=== PATIENT | female | born 1975 | race Caucasian/White ===

== ENCOUNTER 2018-03-07 14:36 | Inpatient (IN) ==
--- NOTE | 2018-03-07 15:20 | Emergency Department Note ---
Nausea/Vomiting/Diarrhea HPI - General Chief complaint: Nausea/Vomiting/Diarrhea Stated complaint: nausea/vomiting Time Seen by Provider: 03/07/18 14:44 Source: patient Mode of arrival: ambulatory Limitations: no limitations - History of Present Illness HPI Narrative: 43-year-old female presents from [facility] with a 6 days hx of nausea/ vomiting. She had blood work done there which showed acute renal failure. She has a hx of metastatic adenocarcinoma of the cervix and her last chemo treatment was in [facility]. She states she only had one treatment and then decided to no longer have treatment. She is not on hospice. She does not have a hx of renal failure. She has had mild elevation in her creatinine. She has had blood transfusions in the past during chemo. She has had 2 episodes of vomiting today and got Phenergan IV which has helped. She has been vomiting 2-3 times a day for about 4 days. She has been wretching and has subconjunctival hemorrhage. She states she votied blood in a small amount twice today. She also has blood in her stool x1year and noticed more in the last few days. Her only medications are zofran, compazine, and 5-HTP. She only recently started the nausea medication again due to being sick. She is having loose stools. No abdominal pain. Chills and night sweats. SOB on exertion. No headaches or dizziness. No chest pain. She is producing urine - Related Data Home Medications Medication Instructions Recorded Confirmed Ondansetron [Zofran Odt] 8 mg PO TID PRN 03/07/18 03/07/18 Prochlorperazine Maleate 10 mg PO Q6H PRN 03/07/18 03/07/18 [Compazine] Allergies Allergy/AdvReac Type Severity Reaction Status Date / Time Amoxicillin Allergy Verified 03/07/18 14:38 Penicillins Allergy Verified 03/07/18 14:38 Review of Systems All systems ED: reviewed and negative except as stated. 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 Surgical history ED: Reports: hysterectomy (And radiation therapy along with chemo) Family history: Reports: non-contributory - Social History smoking status: Never smoker Physical Exam Limitations: no limitations General appearance: alert, in no apparent distress Head: atraumatic Eye: Present: PERRL, EOMI, conjunctival injection (Subconjunctival hemorrhages) Neck: Present: normal inspection, full ROM Chest: Present: normal inspection, symmetric chest wall rise Respiratory: Present: normal lung sounds bilaterally Cardiovascular: Present: regular rate, normal heart sounds Abdominal: Present: soft, normal bowel sounds. Absent: tenderness Rectal: Present: normal inspection, normal rectal tone, heme (-) stool, hemorrhoids. Absent: black stool, bloody stool Extremities: Present: normal inspection, full ROM. Absent: pedal edema Neurological: Present: alert, oriented X3 Psychiatric: Present: normal affect, normal mood Skin: Present: warm, dry, intact Course - Reevaluation(s) Reevaluation #1: Potassium 6.7 on point of care[address] Dr[address] Carlisle was consulted and we will start the hyperkalemia protocol. No EKG changes at this time. Time: 16:10 Reevaluation #2: Bilateral hydronephrosis on ultrasound. We will get a CT without contrast Time: 16:45 Reevaluation #3: I consulted with Dr. Branch. He states at this time the Ellis catheter sounds like a good idea and he does not feel as though she has ureteral obstruction. Since her hydronephrosis has not changed in the last 6 weeks it is unlikely a obstructive process. Dr. Carlisle will follow the kidney function and she will be admitted by Dr. Louis Time: 18:20 Vital Signs Temperature 97.9 F 03/07/18 14:38 Pulse Rate 103 H 03/07/18 14:38 Respiratory Rate 16 03/07/18 14:38 Blood Pressure 183/92 03/07/18 14:38 Pulse Oximetry (%) 99 03/07/18 14:38 Temperature 97.9 F 03/07/18 18:30 Pulse Rate 113 H 03/07/18 18:30 Respiratory Rate 22 03/07/18 18:30 Blood Pressure 159/83 03/07/18 18:30 Pulse Oximetry (%) 98 03/07/18 18:30 Nausea/Vomiting/Diarrhea - Medical Records Medical records reviewed: Yes I reviewed the patient's medical records. Her most recent creatinine was 1.2 on January 09, 2018. At that time her BUN was 15. She has a history of anemia at 6.9 on 12/08/16. Most recent was 10.4 in November of this year. Blood work done today shows 7.8 hemoglobin, BUN is 125, creatinine is 16.8, potassium is 5.8. Possibly mild peaked T waves on her EKG - Lab Data Lab results reviewed: Yes I reviewed the patient's lab results. Result diagrams: 03/07/18 15:25 03/07/18 18:10 Lab Results 03/07/18 03/07/18 03/07/18 Range/Units 15:25 15:25 15:25 WBC 7.0 (4.5-11.0) K/mcL RBC 2.32 L (4.00-5.20) M/mcL Hgb 7.3 L (12.0-15.0) g/dL Hct 21.1 L (36.0-48.0) % POC Hct 20.0 L* (36.0-48.0) % MCV 90.7 (80.0-100.0) fL MCH 31.2 (26.0-34.0) pg MCHC 34.4 (31.0-36.0) g/dL RDW 12.8 (11.5-14.5) % Plt Count 129 L (140-440) K/mcL MPV 8.2 (7.4-10.4) fL Gran % 83.9 H (38.0-78.0) % Lymph % (Auto) 8.1 L (15.5-49.0) % [place] % (Auto) 7.5 (1.0-12.0) % Eos % (Auto) 0.3 (0.0-7.0) % Baso % (Auto) 0.2 (0.0-2.0) % Gran # 5.9 (1.8-8.0) K/mcL Lymph # (Auto) 0.6 L (1.5-4.8) K/mcL [place] # (Auto) 0.5 (0.1-0.9) K/mcL Eos # (Auto) 0 (0.0-0.7) K/mcL Baso # (Auto) 0 (0.0-0.3) K/mcL POC PT 17.2 H (11.9-14.5) sec POC INR 1.5 H (0.9-1.2) POC Sodium 136 (133-145) mmol/L Sodium (133-145) mmol/L POC Potassium 6.7 H* (3.3-5.1) mmol/L Potassium (3.3-5.1) mmol/L POC Chloride 110 H (96-108) mmol/L Chloride (96-108) mmol/L Carbon Dioxide (22-30) mmol/L POC Total CO2 14 L (22-30) mmol/L Anion Gap (8-16) POC BUN 134 H* (6-20) mg/dl BUN (6-20) mg/dl Creatinine (0.6-1.1) mg/dl POC Creatinine 19.7 H* (0.6-1.1) mg/dl GFR Calculation Glucose (70-105) mg/dL POC Glucose 84 (70-105) mg/dL Uric Acid (2.5-8.0) mg/dL Calcium (8.6-10.4) mg/dl POC WB Ioniz Calcium 1.01 L (1.16-1.32) mmol/L Phosphorus (2.7-4.5) mg/dL Total Bilirubin (0.0-1.0) mg/dL AST (0-37) U/l ALT (0-40) U/l Alkaline Phosphatase (39-117) U/L Total Creatine Kinase (24-170) IU/L Total Protein (5.9-8.4) gm/dL Albumin (3.2-5.2) gm/dL Globulin (2.2-3.7) gm/dL Albumin/Globulin Ratio (1.0-2.3) Urine Color Urine Appearance Urine pH (5.0-9.0) Ur Specific [place] (1.000-1.035) Urine Protein (NEG) mg/dL Urine Glucose (UA) (NEG) mg/dL Urine Ketones (NEG) mg/dL Urine Occult Blood (<0.03) mg/dL Urine Nitrate (NEG) Urine Bilirubin (NEG) mg/dL Urine Urobilinogen (NEG) mg/dL Ur Leukocyte Esterase (NEG) /uL Urine RBC (0-1) /hpf Urine WBC (0-4) /hpf Ur Squamous Epith Cells (0-4) /hpf Urine Bacteria (0) /hpf Ur Culture Indicated? Ur Random Creatinine mg/dl Ur Random Sodium mmol/L 03/07/18 03/07/18 03/07/18 Range/Units 15:25 17:17 17:17 WBC (4.5-11.0) K/mcL RBC (4.00-5.20) M/mcL Hgb (12.0-15.0) g/dL Hct (36.0-48.0) % POC Hct (36.0-48.0) % MCV (80.0-100.0) fL MCH (26.0-34.0) pg MCHC (31.0-36.0) g/dL RDW (11.5-14.5) % Plt Count (140-440) K/mcL MPV (7.4-10.4) fL Gran % (38.0-78.0) % Lymph % (Auto) (15.5-49.0) % [place] % (Auto) (1.0-12.0) % Eos % (Auto) (0.0-7.0) % Baso % (Auto) (0.0-2.0) % Gran # (1.8-8.0) K/mcL Lymph # (Auto) (1.5-4.8) K/mcL [place] # (Auto) (0.1-0.9) K/mcL Eos # (Auto) (0.0-0.7) K/mcL Baso # (Auto) (0.0-0.3) K/mcL POC PT (11.9-14.5) sec POC INR (0.9-1.2) POC Sodium (133-145) mmol/L Sodium 138 (133-145) mmol/L POC Potassium (3.3-5.1) mmol/L Potassium 7.0 H* (3.3-5.1) mmol/L POC Chloride (96-108) mmol/L Chloride 101 (96-108) mmol/L Carbon Dioxide 12 L (22-30) mmol/L POC Total CO2 (22-30) mmol/L Anion Gap 25.0 H (8-16) POC BUN (6-20) mg/dl BUN 133 H* (6-20) mg/dl Creatinine 17.6 H* (0.6-1.1) mg/dl POC Creatinine (0.6-1.1) mg/dl GFR Calculation 2 Glucose 88 (70-105) mg/dL POC Glucose (70-105) mg/dL Uric Acid (2.5-8.0) mg/dL Calcium 7.8 L (8.6-10.4) mg/dl POC WB Ioniz Calcium (1.16-1.32) mmol/L Phosphorus (2.7-4.5) mg/dL Total Bilirubin 0.3 (0.0-1.0) mg/dL AST 7 (0-37) U/l ALT 14 (0-40) U/l Alkaline Phosphatase 52 (39-117) U/L Total Creatine Kinase (24-170) IU/L Total Protein 6.8 (5.9-8.4) gm/dL Albumin 4.2 (3.2-5.2) gm/dL Globulin 2.6 (2.2-3.7) gm/dL Albumin/Globulin Ratio 1.6 (1.0-2.3) Urine Color Urine Appearance Urine pH (5.0-9.0) Ur Specific [place] (1.000-1.035) Urine Protein (NEG) mg/dL Urine Glucose (UA) (NEG) mg/dL Urine Ketones (NEG) mg/dL Urine Occult Blood (<0.03) mg/dL Urine Nitrate (NEG) Urine Bilirubin (NEG) mg/dL Urine Urobilinogen (NEG) mg/dL Ur Leukocyte Esterase (NEG) /uL Urine RBC (0-1) /hpf Urine WBC (0-4) /hpf Ur Squamous Epith Cells (0-4) /hpf Urine Bacteria (0) /hpf Ur Culture Indicated? Ur Random Creatinine 59.2 mg/dl Ur Random Sodium 62 mmol/L 03/07/18 03/07/18 Range/Units 17:17 18:10 WBC (4.5-11.0) K/mcL RBC (4.00-5.20) M/mcL Hgb (12.0-15.0) g/dL Hct (36.0-48.0) % POC Hct (36.0-48.0) % MCV (80.0-100.0) fL MCH (26.0-34.0) pg MCHC (31.0-36.0) g/dL RDW (11.5-14.5) % Plt Count (140-440) K/mcL MPV (7.4-10.4) fL Gran % (38.0-78.0) % Lymph % (Auto) (15.5-49.0) % [place] % (Auto) (1.0-12.0) % Eos % (Auto) (0.0-7.0) % Baso % (Auto) (0.0-2.0) % Gran # (1.8-8.0) K/mcL Lymph # (Auto) (1.5-4.8) K/mcL [place] # (Auto) (0.1-0.9) K/mcL Eos # (Auto) (0.0-0.7) K/mcL Baso # (Auto) (0.0-0.3) K/mcL POC PT (11.9-14.5) sec POC INR (0.9-1.2) POC Sodium (133-145) mmol/L Sodium 140 (133-145) mmol/L POC Potassium (3.3-5.1) mmol/L Potassium 4.4 (3.3-5.1) mmol/L POC Chloride (96-108) mmol/L Chloride 103 (96-108) mmol/L Carbon Dioxide 12 L (22-30) mmol/L POC Total CO2 (22-30) mmol/L Anion Gap 25.0 H (8-16) POC BUN (6-20) mg/dl BUN 134 H* (6-20) mg/dl Creatinine 17.9 H* (0.6-1.1) mg/dl POC Creatinine (0.6-1.1) mg/dl GFR Calculation 2 Glucose 112 H (70-105) mg/dL POC Glucose (70-105) mg/dL Uric Acid 8.1 H (2.5-8.0) mg/dL Calcium (8.6-10.4) mg/dl POC WB Ioniz Calcium (1.16-1.32) mmol/L Phosphorus 9.3 H* (2.7-4.5) mg/dL Total Bilirubin (0.0-1.0) mg/dL AST (0-37) U/l ALT (0-40) U/l Alkaline Phosphatase (39-117) U/L Total Creatine Kinase 71 (24-170) IU/L Total Protein (5.9-8.4) gm/dL Albumin (3.2-5.2) gm/dL Globulin (2.2-3.7) gm/dL Albumin/Globulin Ratio (1.0-2.3) Urine Color Straw Urine Appearance Clear Urine pH 6.0 (5.0-9.0) Ur Specific [place] 1.010 (1.000-1.035) Urine Protein 30 A (NEG) mg/dL Urine Glucose (UA) 50 A (NEG) mg/dL Urine Ketones Neg (NEG) mg/dL Urine Occult Blood 0.03 A (<0.03) mg/dL Urine Nitrate Neg (NEG) Urine Bilirubin Neg (NEG) mg/dL Urine Urobilinogen Neg (NEG) mg/dL Ur Leukocyte Esterase 250 A (NEG) /uL Urine RBC 1 (0-1) /hpf Urine WBC 16 H (0-4) /hpf Ur Squamous Epith Cells 1 (0-4) /hpf Urine Bacteria 0 (0) /hpf Ur Culture Indicated? Yes Ur Random Creatinine mg/dl Ur Random Sodium mmol/L - Radiology Data Radiology results reviewed: Yes I reviewed the patient's radiology results. 1. No definite cause identified for renal failure. There is mild bilateral hydronephrosis/hydroureter which is unchanged from the study six weeks prior prior. Urinary bladder contains moderate urine. Suggest pre and post void ultrasound to ensure the absence of chronic bladder outlet obstruction due to periurethral fibrosis etc. Suspect renal failure is due to renal parenchymal disease 2. Three target lesions in the pelvis have increased size slightly since the comparison whole-body PET CT six weeks prior. This suggests progression in metastatic disease 3. Moderate anterior abdominal wall hernia at midline containing a few loops of nonincarcerated small bowel - stable 4. Severe interstitial disease developing in the lung bases with scattered groundglass opacities since the CT study just six weeks prior. This could indicate infection, inflammation, drug reaction etc. Consider: Chest CT without contrast Mild CHF - EKG Data EKG attestation: Yes I reviewed and interpreted this EKG. EKG results narrative: Negative for acute abnormality or peaked T waves Disposition Pt seen by HARDWARE TRAINER/PA only: Yes Clinical Impression: Acute renal failure, Hyperkalemia Disposition: Xfer As Inpt ([facility]) Condition: Fair
[2018-03-07] MEDS ORDERED: 0.9 % SODIUM CHLORIDE 1,000 ML IV SCH (15:30)
[2018-03-07] MEDS ORDERED: INSULIN REGULAR, HUMAN 1 UNIT/0.01 ML UNIT IV ONE (16:01)
[2018-03-07] MEDS ORDERED: DEXTROSE 50% 50 ML SYRINGE IV ONE (16:01)
[2018-03-07] MEDS ORDERED: SODIUM POLYSTYRENE SULFONATE 15 GM/60 ML SUSPENSION PO ONE (16:01)
[2018-03-07] MEDS ORDERED: ALBUTEROL SULFATE 5 MG/ML NEB SOLUTION BOTTLE NEB ONE (16:01)
[2018-03-07] MEDS ORDERED: FUROSEMIDE 40 MG/4 ML VIAL IV ONE (16:01)
[2018-03-07] MEDS ORDERED: CALCIUM CHLORIDE 1,000 MG/10 ML SYRINGE IV ONE (16:04)
[2018-03-07 16:06] LABS: Basophils # (Auto) 0 K/mcL (0.0-0.3); Basophils % (Auto) 0.2 % (0.0-2.0); Eosinophils # (Auto) 0 K/mcL (0.0-0.7); Eosinophils % (Auto) 0.3 % (0.0-7.0); Granulocytes % (Auto) 83.9 % (38.0-78.0); Lymphocytes # (Auto) 0.6 K/mcL (1.5-4.8); Lymphocytes % (Auto) 8.1 % (15.5-49.0); Mean Cell Volume 90.7 fL (80.0-100.0); Mean Corpuscular HGB Conc 34.4 g/dL (31.0-36.0); Mean Corpuscular Hemoglobin 31.2 pg (26.0-34.0); Monocytes # (Auto) 0.5 K/mcL (0.1-0.9); Monocytes % (Auto) 7.5 % (1.0-12.0); Platelet Count 129 K/mcL (140-440); RBC 2.32 M/mcL (4.00-5.20); Red Cell Distribution Width 12.8 % (11.5-14.5)
--- NOTE | 2018-03-07 16:31 | XRay Report ---
CLINICAL INFORMATION: Shortness of breath COMPARISON: None. FINDINGS: The heart is mildly enlarged. Right subclavian Port-A-Cath tip overlies the SVC right atrial junction in satisfactory position.. Mediastinum is unremarkable. Pulmonary vessels are mildly distended and there is mild residual edema or throughout both lungs. No infiltrates or effusions. Bones and soft tissues normal IMPRESSION: Mild CHF. Interpreted and Authenticated by: Mark Patricia 03/07/18
[2018-03-07] MEDS ORDERED: SODIUM BICARBONATE VIAL 150 MEQ in DEXTROSE 5% IN WATER 850 ML IV SCH (16:45)
[2018-03-07 16:47] LABS: ALT/SGPT 14 U/l (0-40); Albumin 4.2 gm/dL (3.2-5.2); Albumin/Globulin Ratio 1.6 (1.0-2.3); Alkaline Phosphatase 52 U/L (39-117); Blood Urea Nitrogen 133 mg/dl (6-20)
--- NOTE | 2018-03-07 16:57 | Nephrology Consult Note ---
History of Present Illness - Reason for Consult Patient information: Note initiated : 03/07/18 at 4:50 pm Service Date, if different from initiated Date: [] Patient: Leonor Thompson 43 y/o F admitted on for nausea/vomiting. Chief Complaint: [] Consult date: 03/07/18 acute renal failure, hyperkalemia, metabolic acidosis Requesting physician: Bonnie Nolasco - Chief Complaint nausea, vomiting - History of Present Illness Ms Thompson is 43 y/o white female with h/o metastatic cervical cancer who was sent to [facility] ER because of abnormal renal function She presented to express care at [facility] today with c/o nausea, vomiting and diarrhea She states she has not been feeling well for the last couple of weeks, c/o nausea, poor appetite, however since last Sunday she started having refractory nausea, vomiting, unable to tolerate much po intake, drinking very little fluids. She also has been having loose stools 1-2 times every day She c/o feeling weak no SOB, CP has subconjunctival hemorrhage from retching no fever, chills admits to occ use of advil no urinary symptoms, states good flow, urine output did not go down has been taking zofran and compazine for nausea Review of Systems All systems PM: reviewed and no additional remarkable complaints except as stated (as in HPI) Past History Past medical history: H/O Metastatic cervical cancer s/p radiation and chemotherapy with recurrence of disease, resumed treatment in nov this year but decided not to pursue treatment, states not on hospice, unclear life expectancy h/o lower GI bleed, has had colonoscopy Past surgical history: h/o hysterectomy for cervical cancer as above h/o port placement h/o colonoscopy Past family history: not pertinent Past social history: no current addictions 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 [employer] Medications and Allergies Allergies Allergy/AdvReac Type Severity Reaction Status Date / Time Amoxicillin Allergy Verified 03/07/18 14:38 Penicillins Allergy Verified 03/07/18 14:38 Exam - Vital Signs Vital signs: Temp Pulse Resp BP Pulse Ox 97.9 F 73 19 151/122 97 03/07/18 14:38 03/07/18 16:00 03/07/18 16:00 03/07/18 15:21 03/07/18 16:00 - General Appearance General appearance: appears started age, obese EENT: mucous membranes moist (HAS subconjunctival hemorrhage b/l) Neck: no JVD Respiratory: clear Cardiology: no rub, no edema, regular rate, regular rhythm Gastrointestinal: no tenderness, no guarding Integumentary: no rash, warm and dry Neurologic: no asterixis, alert and oriented x3 Musculoskeletal: no erythema, no cyanosis Psychiatric: mood/affect appropriate Results - Lab Results 03/07/18 15:25 03/07/18 15:25 Most recent lab results Calcium 7.8 mg/dl (8.6-10.4) L 03/07/18 15:25 Assessment and Plan (1) Acute renal failure serum creatinine is 17, bun is 133 s.creat was 0.8 in december 2017 no UA does have hydronephrosis on renal US She has severe hyperkalemia and metabolic acidosis related to her renal failure phos not checked anemia etiology multifactorial findings discussed with the patient requested ER to initiate hyperkalemia protocol will also start on bicarb gtt at 100cc/hour obtain CT scan stat and urology consult for bilateral hydronephrosis recheck labs by 6pm to ensure hyperkalemia is improving will follow closely for needs for dialysis, discussed with the patient, she is not opposed to dialysis at this time dose meds to egfr avoid nephrotoxic medications will follow along Thank you for giving me an opportunity to participate in Ms Thompson's medical care , appreciate it Status: Acute (2) Hyperkalemia Status: Acute (3) Metabolic acidosis Status: Acute (4) Anemia Status: Acute
[2018-03-07 17:58] LABS: Appearance,Urine CLEAR; Bacteria,Urine 0 /hpf (0); Bilirubin,Urine NEG (NEG); Color,Urine STRAW; Glucose,Urine (UA) 50 mg/dL (NEG); Leukocyte Esterase,Urine 250 /uL (NEG); Protein,Urine 30 mg/dL (NEG); Urine Blood 0.03 mg/dL (<0.03); Urine RBC 1 /hpf (0-1); Urine Squamous Epithelial Cell 1 /hpf (0-4); Urine WBC 16 /hpf (0-4); Urobilinogen,Urine NEG (NEG)
--- NOTE | 2018-03-07 18:06 | Cat Scan Report ---
CLINICAL INFORMATION: History of metastatic cervical carcinoma. Renal failure COMPARISON: Whole-body CT/PET from six weeks prior - 01/18/2018. TECHNIQUE: 0.625 mm helical slices were obtained from the mid heart through the subtrochanteric regions. Following reconstruction, 2.5 mm sagittal, coronal and axial reformatted images were processed and reviewed at bone and soft tissue windows.The exam was performed using radiation dose optimization techniques including, but not limited to, automated exposure control, adjustment of the mA and/or kV according to patient size and use of iterative reconstruction technique. FINDINGS: Lung bases show marked interstitial disease with thickening of intralobular and interlobular septa scattered groundglass densities in the secondary lobules which is new from the previous study. There are no effusions. The visualized heart is borderline enlarged Images should the abdomen show the noncontrasted gallbladder and bile ducts, liver, both adrenal glands, spleen, pancreas and aorta to be normal. Both kidneys are normal in size configuration without focal lesion. There is mild bilateral hydronephrosis/hydroureter. This is unchanged. Urinary bladder is unremarkable. There is mild fibrosis in the periurethral soft tissues and former region of the uterus following hysterectomy this is unchanged. . The three target lesions, described on CT PET six weeks prior which showed Take shows slight increase in size: The left true pelvis lesion is increased from 11 to 14 mm (image [id number], the right true pelvis lesion is increased from 17 to 18 mm. In the anterior abdominal wall near midline lesion has increased from 24 26-mm. These are known to represent metastatic deposits. Moderate sized midline hernia containing small bowel loops which do not appear to penetrated seen as before. No free air or free fluid. Bone windows show no osseous abnormality IMPRESSION: 1. No definite cause identified for renal failure. There is mild bilateral hydronephrosis/hydroureter which is unchanged from the study six weeks prior prior. Urinary bladder contains moderate urine. Suggest pre and post void ultrasound to ensure the absence of chronic bladder outlet obstruction due to periurethral fibrosis etc. Suspect renal failure is due to renal parenchymal disease 2. Three target lesions in the pelvis have increased size slightly since the comparison whole-body PET CT six weeks prior. This suggests progression in metastatic disease 3. Moderate anterior abdominal wall hernia at midline containing a few loops of nonincarcerated small bowel - stable 4. Severe interstitial disease developing in the lung bases with scattered groundglass opacities since the CT study just six weeks prior. This could indicate infection, inflammation, drug reaction etc. Consider: Chest CT without contrast Interpreted and Authenticated by: Mark Patricia 03/07/18
[2018-03-07] MEDS ORDERED: ACETAMINOPHEN 325 MG TABLET PO PRN (18:43)
[2018-03-07] MEDS ORDERED: ONDANSETRON 4 MG/2 ML VIAL IV PRN (18:43)
[2018-03-07] MEDS ORDERED: PROMETHAZINE 25 MG/ML VIAL IV PRN (18:43)
[2018-03-07 19:08] LABS: Blood Urea Nitrogen 134 mg/dl (6-20); Creatine Kinase 71 IU/L (24-170); Uric Acid 8.1 mg/dL (2.5-8.0)
--- NOTE | 2018-03-07 19:13 | Ultrasound Report ---
CLINICAL INFORMATION: Acute renal failure COMPARISON: CT from 03/07/2018 FINDINGS: Both kidneys are normal in size, position and configuration: The right is 11 x 5 cm and the left is 12.7 x 6 cm. Moderate bilateral hydronephrosis noted. Renal parenchymal echotexture is elevated suggesting medical renal disease. There are no focal renal lesions Urinary bladder volume is 84 cc patient unable to void. IMPRESSION: 1. Mild elevation of renal parenchymal echotexture suggesting medical renal disease. 2. Moderate bilateral hydronephrosis. Patient also unable to void. The possibility of chronic bladder outlet obstruction should be entertained. Interpreted and Authenticated by: Mark Patricia 03/07/18
--- NOTE | 2018-03-07 19:41 | Internal Med History&Physical ---
Medical - H&P: HPI Patient information: Note initiated : 03/07/18 at 7:35 pm Service Date, if different from initiated Date: [] Patient: Leonor Thompson a 43 y/o F admitted on 03/07/18 for nausea/vomiting. Chief Complaint: [] Chief complaint: nausea vomiting History of present illness: Ms. Thompson is a 43 year old F with a history of stage IV cervical cancer with ongoing chemotherapy last session 2017. Patient has been doing well until roughly 8-10 days prior to presentation when she started experiencing progressive nausea followed by vomiting,diarrhea , loss of appetite and inability to tolerate anything by mouth. Patient's condition has continued to deteriorate to the point she has not be able to function due to fatigue. She was evaluated at [facility] today and was directed to the ER with abnormal labs. Initial workup was significant for potassium at 7 along with metabolic acidosis and creatinine of over 19. Abdominal imaging including ultrasound and CT scan showed mild hydronephrosis without any evidence of obstruction. Nephrology was consulted. Patient was started on hyperkalemia protocol along with bicarbonate drip per nephrology. hospitalist service was subsequently consulted for admission in light of acute renal failure, hyperkalemia. At the time of evaluation patient is accompanied with her Darshan. She was able to provide history as above She also complains of blood in stool but denies recent URI symptoms, fever, chills, SOB . She denies NSAID intake. Denies headache photophobia but endorses to read IV from recurrent vomiting and retching review of systems 10 point review of system was performed and is negative except for as discussed above Medical - H&P: PMH Medical history: metastatic cervical cancer Surgical history: hysterectomy Colonoscopy Pertinent family history: breast cancer mother Social history: to darshan denies smoking or alcoholism Functional capacity: independent ambulation Medical - H&P: Meds Home Medications Medication Instructions Recorded Confirmed Type Ondansetron [Zofran Odt] 8 mg PO TID PRN 03/07/18 03/07/18 History Prochlorperazine Maleate 10 mg PO Q6H PRN 03/07/18 03/07/18 History [Compazine] Allergies Allergy/AdvReac Type Severity Reaction Status Date / Time Amoxicillin Allergy Verified 03/07/18 14:38 Penicillins Allergy Verified 03/07/18 14:38 Medical - H&P: Exam - Constitutional Vitals: Temp Pulse Resp BP Pulse Ox 99.2 F H 100 H 28 H 174/74 98 03/07/18 18:43 03/07/18 18:43 03/07/18 18:43 03/07/18 18:43 03/07/18 18:43 General appearance: obese Exam: anxious and fatigued Abdomen symmetrical subconjunctival hemorrhage oral cavity dry No ear discharge neck no lymphadenopathy Telemetry regular rhythm Nonlabored breathing Abdomen soft Lower extremity no lymphedema Skin no suspicious lesion Neuro moving all 4 extremities Medical - H&P: Reslt - Labs CBC & Chem 7: 03/07/18 15:25 03/07/18 18:10 Labs: Short CBC 03/07/18 Range/Units 15:25 WBC 7.0 (4.5-11.0) K/mcL Hgb 7.3 L (12.0-15.0) g/dL Hct 21.1 L (36.0-48.0) % Plt Count 129 L (140-440) K/mcL BMP 03/07/18 03/07/18 15:25 18:10 Sodium 138 140 Potassium 7.0 H* 4.4 Chloride 101 103 Carbon Dioxide 12 L 12 L BUN 133 H* 134 H* Creatinine 17.6 H* 17.9 H* Glucose 88 112 H Calcium 7.8 L Cardiac Enzymes 03/07/18 Range/Units 18:10 Total Creatine Kinase 71 (24-170) IU/L Liver Function 03/07/18 Range/Units 15:25 Total Bilirubin 0.3 (0.0-1.0) mg/dL AST 7 (0-37) U/l ALT 14 (0-40) U/l Alkaline Phosphatase 52 (39-117) U/L Albumin 4.2 (3.2-5.2) gm/dL Urine 03/07/18 Range/Units 17:17 Urine Color Straw Urine Appearance Clear Urine pH 6.0 (5.0-9.0) Ur Specific [place] 1.010 (1.000-1.035) Urine Protein 30 A (NEG) mg/dL Urine Glucose (UA) 50 A (NEG) mg/dL Medical - H&P: A/P (1) Acute renal failure Current visit: Yes Status: Acute * acute renal failure- creatinine 19.nephrology consulted * life threatening Hyperkalemia-on treatment protocol. Potassium at 7. Managed per nephrology * severe nausea vomiting-continue as needed Zofran. Likely secondary to uremia * Metabolic acidosis/uremia-managed per nephrology. On bicarbonate drip * intermittent rectal bleed-continue monitoring. Plan * consult nephrology * every 8 hours BMP check * Admitted inpatient telemetry
[2018-03-07 19:43] LABS: Ionized Calcium 1.02 mmol/L (1.16-1.32)
[2018-03-07] MEDS: DOCUSATE SODIUM 100 MG CAPSULE PO SCH (20:59)
[2018-03-07] MEDS ORDERED: SENNOSIDES/DOCUSATE SODIUM 1 TAB TABLET PO SCH (21:00)
--- NOTE | 2018-03-07 21:10 | Emergency Department Note ---
ED Note Addendum Note Addendum: case follow with Bonnie and agree with lab an dx and consult to Sarina Pryor, and Dr Hammonds
[2018-03-07] MEDS: 0.9 % SODIUM CHLORIDE 1,000 ML IV SCH (23:33)
[2018-03-07] MEDS: 0.9 % SODIUM CHLORIDE 10 ML SYRINGE IV SCH (23:33)
--- NOTE | 2018-03-08 00:20 | Consultation ---
DATE OF CONSULTATION: 03/07/2018 DATE: 03/07/2018 HISTORY OF PRESENT ILLNESS: The patient is a 43-year-old lady with stage IV cervical cancer who has had radiation and finished chemotherapy in November of this year. Approximately 8 to 10 days started to have nausea, vomiting, diarrhea, loss of appetite. She was seen in my Nephrology and was noted to have a high potassium and also a creatinine approximately 19. She was admitted to the hospital and they have attempted to pass a Ellis catheter and were unable, and I was asked to evaluate. Patient also had an ultrasound which did show hydronephrosis and a CT scan did not show any obstruction. This may be related to radiation-caused scarring of the ureters. She presents now for evaluation. PAST MEDICAL HISTORY: Metastatic cervical cancer. PAST SURGICAL HISTORY: Hysterectomy, colonoscopy. FAMILY HISTORY: Breast cancer. SOCIAL HISTORY: Denies any smoking or drinking. CURRENT MEDICATIONS: Per hospital notes. ALLERGIES: AMOXICILLIN, PENICILLIN. REVIEW OF SYSTEMS: A complete 12-point review of systems negative, was urinating before now, denies any urinary leakage. PHYSICAL EXAMINATION: GENERAL: This is a pleasant lady in slight distress. VITAL SIGNS: As listed per nurse's notes. HEENT: Atraumatic, normocephalic. Extraocular movements are intact. Pupils equal, reactive to light and accommodation. HEART: Regular rate and rhythm. LUNGS: Clear to auscultation. ABDOMEN: Soft, nontender. GENITOURINARY: Normal female anatomy. Urethra is in its normal position. Status post hysterectomy. Vagina is normal. No rectocele is noted. EXTREMITIES: Without clubbing, cyanosis, edema. NEUROLOGIC: 2-12 grossly intact. IMPRESSION: A patient who appears to have obstructive uropathy. I was able to place a Ellis catheter after placing the patient in [facility], and a 16-Mauritian catheter went in easily. Postvoid residual was approximately 100 mL. I am concerned about the bilateral hydronephrosis. This may be contributing to her renal decline. I have talked to her and her about this and would take her tomorrow for stent placement. I have gone over the complications including bleeding, infection, not being able to get stents, need for percutaneous tubes, and she understands. We will plan to follow up with her at the time of surgery. JEANNINE:suzanne Job ID: [id number] Doc ID: [id number] Eric Branch MD
[2018-03-08 06:50] LABS: Mean Cell Volume 91.3 fL (80.0-100.0); Mean Corpuscular HGB Conc 35.1 g/dL (31.0-36.0); Platelet Count 106 K/mcL (140-440); RBC 1.95 M/mcL (4.00-5.20)
[2018-03-08] MEDS ORDERED: SUCCINYLCHOLINE 20 MG/ML ML IV ONE (07:14)
[2018-03-08] MEDS ORDERED: fentaNYL 100 MCG/2 ML VIAL IV ONE (07:14)
[2018-03-08] MEDS ORDERED: GLYCOPYRROLATE 0.2 MG/ML VIAL IV ONE (07:14)
[2018-03-08] MEDS ORDERED: KETAMINE 10 MG/ML ML ONE (07:14)
[2018-03-08] MEDS ORDERED: MIDAZOLAM 2 MG/2 ML VIAL ONE (07:14)
[2018-03-08] MEDS ORDERED: PROPOFOL 200 MG/20 ML VIAL IV ONE (07:14)
[2018-03-08] MEDS ORDERED: LIDOCAINE HCL/PF 100 MG/5 ML SYRINGE IV ONE (07:14)
[2018-03-08] MEDS ORDERED: ONDANSETRON 4 MG/2 ML VIAL ONE (07:14)
[2018-03-08] MEDS ORDERED: 0.9 % SODIUM CHLORIDE 250 ML IV SCH ×2 (07:30→09:17)
[2018-03-08 07:33] LABS: ALT/SGPT 12 U/l (0-40); Albumin 3.8 gm/dL (3.2-5.2); Albumin/Globulin Ratio 1.7 (1.0-2.3); Alkaline Phosphatase 43 U/L (39-117); Bilirubin,Direct < 0.2 mg/dL (0.0-0.3); Gamma Glutamyl Transpeptidase 15 U/L (5-36); Uric Acid 8.5 mg/dL (2.5-8.0)
[2018-03-08 07:34] LABS: Blood Urea Nitrogen 123 mg/dl (6-20)
[2018-03-08] MEDS ORDERED: METOPROLOL TARTRATE 5 MG/5 ML VIAL IV PRN (07:36)
[2018-03-08] MEDS ORDERED: IPRATROPIUM/ALBUTEROL 3 ML AMPUL.NEB NEB PRN (07:36)
[2018-03-08] MEDS ORDERED: PROMETHAZINE 25 MG/ML VIAL IV PRN ×2 (07:36→09:17)
[2018-03-08] MEDS ORDERED: HYDROmorphone 2 MG/ML VIAL IV PRN (07:36)
[2018-03-08] MEDS ORDERED: fentaNYL 100 MCG/2 ML VIAL IV PRN (07:36)
[2018-03-08] MEDS ORDERED: LACTATED RINGERS 1,000 ML IV SCH (07:45)
--- NOTE | 2018-03-08 07:46 | Brief Operative Note ---
Date of procedure: 03/08/18 Pre-op diagnosis: christopher hydronephrosis Post-op diagnosis: same Procedure: christopher stents Grafts/Implants: Yes (stents) Anesthesia: GLMA Findings: see note Complications: none Surgeon: Eric Branch Specimens Removed/Pathology: none sent Condition: stable Disposition: PACU
[2018-03-08] MEDS ORDERED: SEVELAMER 800 MG TABLET PO SCH (08:00)
[2018-03-08] MEDS ORDERED: CARVEDILOL 3.125 MG TABLET PO SCH (08:00)
[2018-03-08] MEDS ORDERED: IOPAMIDOL 50 ML BOTTLE IJ ONE (08:03)
[2018-03-08 08:07] LABS: Lymphocytes % 6 % (15-49); Monocytes % (Manual) 3 % (1-12); Platelet Estimate DECREASED (NORMAL); RBC Morphology NORMAL (NORMAL); Segmented Neutrophils % 91 % (38-78)
[2018-03-08] MEDS ORDERED: MULTIVIT,THER IRON,CA,FA & MIN 1 TABLET PO SCH (09:00)
[2018-03-08] MEDS ORDERED: ONDANSETRON 4 MG/2 ML VIAL IV PRN (09:17)
[2018-03-08] MEDS ORDERED: 0.9 % SODIUM CHLORIDE 1,000 ML IV SCH (09:17)
[2018-03-08] MEDS ORDERED: ACETAMINOPHEN 325 MG TABLET PO PRN (09:17)
[2018-03-08] MEDS ORDERED: HYDROXYTRYPTOPHAN 100 MG PO PRN (09:17)
[2018-03-08] MEDS ORDERED: PROCHLORPERAZINE MALEATE 10 MG TABLET PO PRN (09:17)
[2018-03-08] MEDS ORDERED: ONDANSETRON ODT 4 MG TABLET SL PRN (09:31)
--- NOTE | 2018-03-08 09:35 | Operative Note ---
DATE OF OPERATION: 03/08/2018 PREOPERATIVE DIAGNOSIS: Bilateral hydronephrosis, renal failure. POSTOPERATIVE DIAGNOSIS: Bilateral hydronephrosis, renal failure. PROCEDURE: Cystoscopy, retrograde pyelogram, ureteral stent placement. SURGEON: Eric Branch MD INDICATION: The patient is a 43-year-old lady who has had cervical cancer and has had radiation and chemotherapy. She has had an increase seen in her BUN and creatinine, also potassium. This been normalized, but her BUN and creatinine are still high. She presents now for stents. PROCEDURE: The patient was identified and consent was signed. She was given general anesthesia, placed in lithotomy position, prepped and draped in a standard fashion. A retrograde pyelogram was obtained which showed narrowing at the ureterovesical junction. This was extrinsic. A wire was then passed up into the kidney and a 6 x 24 stent was placed using the Seldinger technique. This showed a good curl in the kidney and the bladder. We then repeated this on the left side and again there was a narrowing at the ureters, at the UVJ. A wire was placed and a 6 x 24 stent was placed without difficulty. No string was left attached and this showed both good curls in the kidney and the bladder. A Ellis catheter was placed and she was awoken and taken to recovery room in stable condition. She tolerated the procedure well. NancyZ:amurisio Job ID: [id number] Doc ID: [id number] Eric Branch MD
[2018-03-08] MEDS ORDERED: METOPROLOL TARTRATE 5 MG/5 ML VIAL IV ONE (09:48)
--- NOTE | 2018-03-08 09:50 | Internal Med Progress Note ---
Medical - PN: Subj Patient information: Note initiated : 03/08/18 at 9:49 am Service Date, if different from initiated Date: [] Patient: Leonor Thompson a 43 y/o F admitted on 03/07/18 for nausea/vomiting. Chief Complaint: [] Interval history: Ms. Thompson is a 43 year old F with a history of stage IV cervical cancer with ongoing chemotherapy last session 2017. Patient has been doing well until roughly 8-10 days prior to presentation when she started experiencing progressive nausea followed by vomiting,diarrhea , loss of appetite and inability to tolerate anything by mouth. Patient's condition has continued to deteriorate to the point she has not be able to function due to fatigue. She was evaluated at [facility] today and was directed to the ER with abnormal labs. Initial workup was significant for potassium at 7 along with metabolic acidosis and creatinine of over 19. Abdominal imaging including ultrasound and CT scan showed mild hydronephrosis without any evidence of obstruction. Nephrology was consulted. Patient was started on hyperkalemia protocol along with bicarbonate drip per nephrology. hospitalist service was subsequently consulted for admission in light of acute renal failure, hyperkalemia. At the time of evaluation patient is accompanied with her Darshan. She was able to provide history as above She also complains of blood in stool but denies recent URI symptoms, fever, chills, SOB . She denies NSAID intake. Denies headache photophobia but endorses to read IV from recurrent vomiting and retching 03/08- patient underwent renal stenting by urology for obstructive uropathy. hemoglobin of 6.3. Transfuse 2 units PRBC.potassium down from 74.9. Creatinine down from 19.7-17.1. BUN at 123 from 134. phosphorus 10.6. Nephrology managing renal failure/hyperkalemia and acidosis. No overnight events or concerns per staff. No telemetry events. Appears drowsy, Foleys draining >600 cc/Hr urine outputs since procedure - Constitutional Vitals: Vital Signs Temp Pulse Resp BP Pulse Ox 98.2 F 100 H 22 173/91 94 03/08/18 08:47 03/08/18 08:47 03/08/18 08:47 03/08/18 08:47 03/08/18 08:47 Period Temp Pulse Resp BP Sys/Harris Pulse Ox Last 24 Hr 97.9 F-99.2 F 72-118 11-29 130-184/68-122 93-100 Intake and Output 03/07/18 03/08/18 03/08/18 21:59 05:59 13:59 Intake Total 360 / 360 600 / 600 Output Total 1050 / 1050 540 / 540 440 / 440 Balance -1050 / -1050 -180 / -180 160 / 160 Weight 209 lb 11.2 oz Intake & Output: Intake & Output 03/07/18 03/08/18 03/08/18 21:59 05:59 13:59 Intake Total 360 / 360 600 / 600 Output Total 1050 / 1050 540 / 540 440 / 440 Balance -1050 / -1050 -180 / -180 160 / 160 Weight 209 lb 11.2 oz Intake: IV 600 / 600 Lactated Ringers 1,000 ml @ 20 600 / 600 mls/hr IV .Q24H [facility] Rx#: [id number] Oral 360 / 360 Output: Urine Catheter Amount 440 / 440 440 / 440 Void Amount 450 / 450 Urine/Stool Mix 600 / 600 Stool 100 / 100 Other: Stool Size Moderate Stool Color Brown Stool Consistency Liquid Liquid General appearance: no acute distress Exam: alert oriented nonlabored breathing Subconjunctival hemorrhage abdomen soft No lymphedema Polyuria/foleys Medical - PN: Obj Da - Labs CBC & Chem 7: 03/08/18 03:49 03/08/18 03:49 Labs: Abnormal Lab Results 03/08/18 03/08/18 03/07/18 03:49 03:49 18:10 RBC 1.95 L Hgb 6.3 L* Hct 17.8 L* POC Hct Plt Count 106 L Gran % Lymph % (Auto) Lymph # (Auto) Seg Neutrophils % 91 H Lymphocytes % 6 L POC PT POC INR POC Potassium Potassium POC Chloride Carbon Dioxide 17 L 12 L POC Total CO2 Anion Gap 23.0 H 25.0 H POC BUN BUN 123 H* 134 H* Creatinine 17.1 H* 17.9 H* POC Creatinine Glucose 112 H Uric Acid 8.5 H 8.1 H Calcium 8.1 L POC WB Ioniz Calcium Ionized Calcium Lucina 1.02 L Phosphorus 10.6 H* 9.3 H* Urine Protein Urine Glucose (UA) Urine Occult Blood Ur Leukocyte Esterase Urine WBC 03/07/18 03/07/18 03/07/18 17:17 15:25 15:25 RBC Hgb Hct POC Hct Plt Count Gran % Lymph % (Auto) Lymph # (Auto) Seg Neutrophils % Lymphocytes % POC PT 17.2 H POC INR 1.5 H POC Potassium Potassium 7.0 H* POC Chloride Carbon Dioxide 12 L POC Total CO2 Anion Gap 25.0 H POC BUN BUN 133 H* Creatinine 17.6 H* POC Creatinine Glucose Uric Acid Calcium 7.8 L POC WB Ioniz Calcium Ionized Calcium Lucina Phosphorus Urine Protein 30 A Urine Glucose (UA) 50 A Urine Occult Blood 0.03 A Ur Leukocyte Esterase 250 A Urine WBC 16 H 03/07/18 03/07/18 15:25 15:25 RBC 2.32 L Hgb 7.3 L Hct 21.1 L POC Hct 20.0 L* Plt Count 129 L Gran % 83.9 H Lymph % (Auto) 8.1 L Lymph # (Auto) 0.6 L Seg Neutrophils % Lymphocytes % POC PT POC INR POC Potassium 6.7 H* Potassium POC Chloride 110 H Carbon Dioxide POC Total CO2 14 L Anion Gap POC BUN 134 H* BUN Creatinine POC Creatinine 19.7 H* Glucose Uric Acid Calcium POC WB Ioniz Calcium 1.01 L Ionized Calcium Lucina Phosphorus Urine Protein Urine Glucose (UA) Urine Occult Blood Ur Leukocyte Esterase Urine WBC Meds: Medications Acetaminophen (Tylenol) 650 mg PO Q4-6HP PRN PRN Reason: PAIN/FEVER > 101 Docusate Sodium (Colace) 100 mg PO BID [facility] Sodium Bicarbonate 150 meq/ (Dextrose) 1,000 mls @ 75 mls/hr IV Q20H [facility] Sodium Chloride (Sodium Chloride 0.9%) 250 mls @ 20 mls/hr IV .[id number] [facility] Stop: 03/08/18 19:59 Sodium Chloride (Sodium Chloride 0.45%) 1,000 mls @ 75 mls/hr IV .[id number] [facility] Iron Carb/Multivit/Roof Promenade Tile Setter/Folic Acid (Multivitamin W/Minerals) 1 tab PO DAILY [facility] Non-Formulary Medication (5-Hydroxytryptophan (5-Htp)) 100 mg PO PRN PRN PRN Reason: Mood Ondansetron HCl (Zofran) 4 mg IV Q4-6HP PRN PRN Reason: Nausea And Vomiting Ondansetron HCl (Zofran Odt) 8 mg SL TIDP PRN PRN Reason: Nausea Prochlorperazine Maleate (Compazine) 10 mg PO Q6HP PRN PRN Reason: Nausea Promethazine HCl (Phenergan) 6.25 mg IV Q4-6HP PRN PRN Reason: Nausea And Vomiting Senna/Docusate Sodium (Senna Plus Tablet) 1 tab PO HS [facility] Sevelamer Carbonate (Renvela) 1,600 mg PO TIDCC [facility] Sodium Chloride (Saline Flush) 10 ml IV Q8 [facility] Medical - PN: A/P - Time Spent With Patient Total time spent is greater than 50% in coordination of care (as documented) at patient's floor/unit and/or counseling patient: 15 - 24 minutes (1) Acute renal failure Status: Acute Assessment and plan: * Postobstructive acute renal failure- creatinine down to 17 from 19. management per nephrology. * Bilateral hydronephrosis secondary to obstruction status post stenting by urology. * Critical anemia-transfuse 2 units PRBC. Likely secondary to renal failure * Life threatening Hyperkalemia-potassium down from 7-4.9. * Severe nausea vomiting secondary to uremia-clinically improving on as needed antiemetics * Metabolic acidosis-on bicarbonate drip per nephrology * intermittent rectal bleed-continue monitoring. GI consult if persistent bleed Plan * 2 units PRBC transfusion * Monitor for polyuria/hypotension/postobstructive diuresis * GI consult if persistent rectal bleed * every 8 hours BMP check Current Visit: Yes Medical - PN: Qual - VTE Deep Vein Thrombosis/Pulmonary Embolism Present on Admission: No
[2018-03-08] MEDS: SODIUM BICARBONATE VIAL 150 MEQ in DEXTROSE 5% IN WATER 850 ML IV SCH ×2 (09:56→23:54)
[2018-03-08] MEDS: 0.45 % SODIUM CHLORIDE 1,000 ML IV SCH (09:56)
[2018-03-08] MEDS ORDERED: CIPROFLOXACIN 400 MG/200 ML BAG IV ONE (10:10)
[2018-03-08] MEDS ORDERED: ACETAMINOPHEN 650 MG/65 ML BOTTLE IV PRN (10:13)
[2018-03-08] MEDS: SEVELAMER 800 MG TABLET PO SCH ×2 (12:23→17:48)
[2018-03-08] MEDS ORDERED: SODIUM BICARBONATE VIAL 150 MEQ in DEXTROSE 5% IN WATER 850 ML IV SCH (13:00)
[2018-03-08] MEDS: 0.9 % SODIUM CHLORIDE 10 ML SYRINGE IV SCH ×2 (14:01→22:44)
[2018-03-08] MEDS: amLODIPine 5 MG TABLET PO SCH (16:47)
--- NOTE | 2018-03-08 18:06 | Nephrology Progress Note ---
Subjective Patient information: Note initiated : 03/08/18 at 6:04 pm Service Date, if different from initiated Date: [] Patient: Leonor Thompson 43 y/o F admitted on 03/07/18 for Nausea, Vomiting/ Renal Failure. Chief Complaint: [] Principal diagnosis: JYOTSNA Interval history: Seen by Dr Branch last night who had to place ballesteros cath as RN not able to due this due to urethral stricture this am she had cystoscopy followed by retrograde pyelogram and ureteral stent placement her Hb dropped to 6.3 and she will get PRBC transfusion for this no oliguric K improved, acidosis better on labs patient denies SOB, CP, dizziness no edema nausea better she is however very anxious Pertinent ROS: as above Objective - Vital Signs Vital signs: Vital Signs Temp Pulse Pulse Resp BP BP BP 03/08/18 16:07 65 21 03/08/18 16:01 67 21 149/81 03/08/18 15:53 83 19 170/101 03/08/18 15:46 67 18 177/109 03/08/18 15:31 98.6 F 76 24 H 163/96 03/08/18 15:16 74 20 162/96 03/08/18 14:58 74 17 164/102 03/08/18 14:31 98.9 F 84 16 151/105 03/08/18 14:13 88 17 03/08/18 14:01 98.4 F 72 21 160/94 03/08/18 13:59 98.7 F 72 21 03/08/18 13:31 79 21 161/96 03/08/18 13:01 77 25 H 168/106 03/08/18 12:46 98.7 F 73 22 155/100 03/08/18 12:31 84 19 144/98 03/08/18 12:16 80 18 149/93 03/08/18 12:01 98.9 F 75 23 H 151/95 03/08/18 12:00 100 H 03/08/18 11:51 81 19 154/91 03/08/18 11:33 75 17 03/08/18 11:01 89 27 H 148/94 03/08/18 10:46 81 24 H 147/91 03/08/18 10:31 102 H 19 146/86 03/08/18 10:22 94 H 19 158/95 03/08/18 10:17 99 H 19 150/133 03/08/18 10:01 96 H 24 H 164/92 03/08/18 09:46 92 H 20 164/95 03/08/18 09:30 95 H 20 167/94 03/08/18 09:17 93 H 21 168/97 03/08/18 09:01 169/100 03/08/18 08:47 98.2 F 100 H 22 173/91 03/08/18 08:36 98.0 F 98 H 18 170/86 03/08/18 08:21 98.0 F 103 H 11 L 165/85 03/08/18 08:16 98.0 F 106 H 12 169/89 03/08/18 08:11 98.0 F 110 H 22 165/89 03/08/18 08:06 98.0 F 102 H 22 160/88 03/08/18 08:01 98.3 F 99 H 21 148/82 03/08/18 08:00 98 F 18 169/100 03/08/18 07:56 98.2 F 100 H 22 132/76 03/08/18 07:51 98.2 F 98 H 19 131/74 03/08/18 07:00 20 144/85 03/08/18 06:59 98.9 F 82 19 03/08/18 06:00 21 139/79 03/08/18 05:00 19 146/90 03/08/18 04:01 98.5 F 72 19 145/91 03/08/18 03:01 18 130/73 03/08/18 02:01 20 142/91 03/08/18 01:01 21 143/85 03/08/18 00:01 99.0 F H 18 144/88 03/08/18 00:00 17 03/07/18 23:01 18 142/68 03/07/18 22:05 24 H 162/84 03/07/18 21:07 28 H 153/85 03/07/18 21:04 112 H 16 03/07/18 18:43 99.2 F H 100 H 28 H 174/74 03/07/18 18:40 26 H 174/74 03/07/18 18:30 97.9 F 113 H 22 159/83 03/07/18 18:29 99.2 F H 28 H 174/74 05/10/18 18:08 113 H 22 Pulse Ox 03/08/18 16:07 94 03/08/18 16:01 94 03/08/18 15:53 95 03/08/18 15:46 95 03/08/18 15:31 95 03/08/18 15:16 93 03/08/18 14:58 95 03/08/18 14:31 96 03/08/18 14:13 98 03/08/18 14:01 99 03/08/18 13:59 99 03/08/18 13:31 98 03/08/18 13:01 99 03/08/18 12:46 100 03/08/18 12:31 99 03/08/18 12:16 99 03/08/18 12:01 100 03/08/18 12:00 94 03/08/18 11:51 100 03/08/18 11:33 100 03/08/18 11:01 98 03/08/18 10:46 99 03/08/18 10:31 97 03/08/18 10:22 98 03/08/18 10:17 96 03/08/18 10:01 96 03/08/18 09:46 88 L 03/08/18 09:30 91 03/08/18 09:17 95 03/08/18 09:01 03/08/18 08:47 94 03/08/18 08:36 94 03/08/18 08:21 95 03/08/18 08:16 95 03/08/18 08:11 95 03/08/18 08:06 98 03/08/18 08:01 99 03/08/18 08:00 96 03/08/18 07:56 99 03/08/18 07:51 98 03/08/18 07:00 03/08/18 06:59 95 03/08/18 06:00 94 03/08/18 05:00 99 03/08/18 04:01 97 03/08/18 03:01 99 03/08/18 02:01 98 03/08/18 01:01 99 03/08/18 00:01 100 03/08/18 00:00 100 03/07/18 23:01 93 03/07/18 22:05 98 03/07/18 21:07 98 03/07/18 21:04 98 03/07/18 18:43 98 03/07/18 18:40 98 03/07/18 18:30 98 03/07/18 18:29 98 03/07/18 18:08 98 Intake and Output 03/08/18 03/08/18 03/08/18 05:59 13:59 21:59 Intake Total 360 / 360 1105 / 1105 325 / 325 Output Total 540 / 540 2240 / 2240 210 / 210 Balance -180 / -180 -1135 / -1135 115 / 115 Intake: IV 865 / 865 Lactated Ringers 1,000 ml @ 20 600 / 600 mls/hr IV .Q24H [facility] Rx#: [id number] Oral 360 / 360 240 / 240 Blood Product 325 / 325 Output: Urine Catheter Amount 440 / 440 2240 / 2240 210 / 210 Stool 100 / 100 Other: Stool Consistency Liquid Weight 209 lb 11.2 oz Patient Weight 03/09/18 05:59 Weight 209 lb 11.2 oz Intake & Output: Intake & Output 03/08/18 03/08/18 03/08/18 05:59 13:59 21:59 Intake Total 360 / 360 1105 / 1105 325 / 325 Output Total 540 / 540 2240 / 2240 210 / 210 Balance -180 / -180 -1135 / -1135 115 / 115 Weight 209 lb 11.2 oz Intake: IV 865 / 865 Lactated Ringers 1,000 ml @ 20 600 / 600 mls/hr IV .Q24H [facility] Rx#: [id number] Oral 360 / 360 240 / 240 Blood Product 325 / 325 Output: Urine Catheter Amount 440 / 440 2240 / 2240 210 / 210 Stool 100 / 100 Other: Stool Consistency Liquid - General Appearance General appearance: obese, chronically ill EENT: mucous membranes moist Neck: no JVD Respiratory: clear Cardiology: no rub, no edema, normal S1, normal S2 Gastrointestinal: no tenderness, no guarding Integumentary: warm and dry Neurologic: alert and oriented x3 Musculoskeletal: no erythema, no clubbing Psychiatric: mood/affect appropriate - Lab 03/08/18 03:49 03/08/18 03:49 Most recent lab results Calcium 8.1 mg/dl (8.6-10.4) L 03/08/18 03:49 Phosphorus 10.6 mg/dL (2.7-4.5) H* 03/08/18 03:49 Magnesium 1.8 mg/dL (1.6-2.5) 03/08/18 03:49 Assessment and Plan (1) Acute renal failure s.creat still has 17, Lucy down to 123 Hyperkalemia improved bicarb at 17 on sodium bicarb gtt post obstructive uropathy s/p bilateral ureteral stent placement and ballesteros cath placement by urology good urinary output will follow serial bmp to ensure stable serum electrolytes if repeat BMP today with concerns amlodipine added for HTN PRBC transfusion for severe anemia renvela added for hyperphosphatemia will continue with IVF at around 75% of urine output to prevent polyuria and at the same time volume depletion I am hoping her renal function will improve with these interventions I will continue to follow her dose meds to egfr less than 10 avoid nephrotoxic medications Metabolic acidosis from renal failure on bicarb gtt, will change to oral bicarb once bicarb above 20 hyperphosphatemia from JYOTSNA on renvela and renal diet will monitor anemia as above metastatic cervical cancer overall poor prognosis Thank you for giving me an opportunity to participate in Ms Thompson's medical care , appreciate it Status: Acute (2) Hyperkalemia Status: Acute (3) Metabolic acidosis Status: Acute (4) Anemia Status: Acute
--- NOTE | 2018-03-08 18:59 | XRay Report ---
CLINICAL INFORMATION: Reason for Exam:CYSTOSCOPY WITH RETROGRADE PYELOGRAMS WITH BILAT COMPARISON: None. FINDINGS: Digital images submitted from the OR show retrograde ureterogram opacify both upper collecting systems. There is mild bilateral hydronephrosis. IMPRESSION: Mild bilateral hydronephrosis. Interpreted and Authenticated by: Mark Patricia 03/08/18
[2018-03-08 19:41] LABS: Blood Urea Nitrogen 118 mg/dl (6-20)
[2018-03-08] MEDS ORDERED: SODIUM POLYSTYRENE SULFONATE 15 GM/60 ML SUSPENSION PO ONE (20:30)
[2018-03-08] MEDS: DOCUSATE SODIUM 100 MG CAPSULE PO SCH (20:44)
[2018-03-08] MEDS: SENNOSIDES/DOCUSATE SODIUM 1 TAB TABLET PO SCH (20:44)
[2018-03-09 05:22] LABS: Mean Cell Volume 91.3 fL (80.0-100.0); Mean Corpuscular HGB Conc 34.1 g/dL (31.0-36.0); Mean Corpuscular Hemoglobin 31.1 pg (26.0-34.0); Platelet Count 126 K/mcL (140-440); RBC 2.82 M/mcL (4.00-5.20); Red Cell Distribution Width 13.3 % (11.5-14.5)
[2018-03-09 06:08] LABS: ALT/SGPT 10 U/l (0-40); Albumin/Globulin Ratio 1.7 (1.0-2.3); Alkaline Phosphatase 47 U/L (39-117); Bilirubin,Direct < 0.2 mg/dL (0.0-0.3); Blood Urea Nitrogen 105 mg/dl (6-20); Gamma Glutamyl Transpeptidase 14 U/L (5-36); Uric Acid 7.5 mg/dL (2.5-8.0)
[2018-03-09 06:32] LABS: Eosinophils % (Manual) 6 % (0-7); Lymphocytes % 28 % (15-49); Monocytes % (Manual) 3 % (1-12); Platelet Estimate DECREASED (NORMAL); RBC Morphology NORMAL (NORMAL); Segmented Neutrophils % 63 % (38-78)
[2018-03-09] MEDS: 0.45 % SODIUM CHLORIDE 1,000 ML IV SCH ×2 (07:45→19:38)
[2018-03-09] MEDS: 0.9 % SODIUM CHLORIDE 10 ML SYRINGE IV SCH ×3 (07:45→22:30)
[2018-03-09] MEDS: DOCUSATE SODIUM 100 MG CAPSULE PO SCH ×2 (07:53→21:03)
[2018-03-09] MEDS: SEVELAMER 800 MG TABLET PO SCH ×3 (07:53→17:24)
[2018-03-09] MEDS: amLODIPine 5 MG TABLET PO SCH (07:53)
[2018-03-09] MEDS ORDERED: MULTIVIT,THER IRON,CA,FA & MIN 1 TABLET PO SCH (09:00)
[2018-03-09] MEDS ORDERED: CIPROFLOXACIN 250 MG TABLET PO SCH (09:00)
[2018-03-09] MEDS ORDERED: 0.45 % SODIUM CHLORIDE 1,000 ML IV SCH (09:14)
[2018-03-09] MEDS ORDERED: cefTRIAXone 1 GM VIAL IV SCH (09:45)
--- NOTE | 2018-03-09 13:16 | Internal Med Progress Note ---
Medical - PN: Subj Patient information: Note initiated : 03/09/18 at 1:14 pm Service Date, if different from initiated Date: [] Patient: Leonor Thompson a 43 y/o F admitted on 03/07/18 for Nausea, Vomiting/ Renal Failure. Chief Complaint: [] Interval history: Ms. Thompson is a 43 year old F with a history of stage IV cervical cancer with ongoing chemotherapy last session 2017. Patient has been doing well until roughly 8-10 days prior to presentation when she started experiencing progressive nausea followed by vomiting,diarrhea , loss of appetite and inability to tolerate anything by mouth. Patient's condition has continued to deteriorate to the point she has not be able to function due to fatigue. She was evaluated at [facility] today and was directed to the ER with abnormal labs. Initial workup was significant for potassium at 7 along with metabolic acidosis and creatinine of over 19. Abdominal imaging including ultrasound and CT scan showed mild hydronephrosis without any evidence of obstruction. Nephrology was consulted. Patient was started on hyperkalemia protocol along with bicarbonate drip per nephrology. hospitalist service was subsequently consulted for admission in light of acute renal failure, hyperkalemia. At the time of evaluation patient is accompanied with her Darshan. She was able to provide history as above She also complains of blood in stool but denies recent URI symptoms, fever, chills, SOB . She denies NSAID intake. Denies headache photophobia but endorses to read IV from recurrent vomiting and retching 03/08- patient underwent renal stenting by urology for obstructive uropathy. hemoglobin of 6.3. Transfuse 2 units PRBC.potassium down from 74.9. Creatinine down from 19.7-17.1. BUN at 123 from 134. phosphorus 10.6. Nephrology managing renal failure/hyperkalemia and acidosis. No overnight events or concerns per staff. No telemetry events. Appears drowsy, Foleys draining >600 cc/Hr urine outputs since procedure 03/09 Patient seen and examined, status post stenting by urology, no acute events. Hemoglobin stable received 2 units yesterday. Labs are stable renal function is improving, phosphorus is high creatinine still high but trending down. Patient is negative balance since admission. Bicarbonate is normal the drip has been discontinued patient is now on just half NS. Monitor with this for now monitored renal function as well as urine output. Patient is DO NOT RESUSCITATE has advanced malignancy which has failed radiation as well as chemo does not plan to undergo any more treatments from the cancer standpoint. Pertinent ROS: Denies headache, dizziness Denies chest pain, palpitations Denies cough or shortness of breath Denies abdominal pain, nausea or vomiting. Appetite still low but improved - Constitutional Vitals: Vital Signs Temp Pulse Resp BP Pulse Ox 97.9 F 67 16 169/97 96 03/09/18 11:57 03/08/18 18:01 03/09/18 11:57 03/09/18 11:57 03/09/18 11:57 Period Temp Pulse Resp BP Sys/Harris Pulse Ox Last 24 Hr 97.9 F-98.9 F 64-88 16-24 140-187/81-110 92-100 Intake and Output 03/08/18 03/09/18 03/09/18 21:59 05:59 13:59 Intake Total 1370 / 1370 2360 / 2360 250 / 250 Output Total 1350 / 1350 2455 / 2455 1715 / 1715 Balance 20 / 20 -95 / -95 -1465 / -1465 Weight 216 lb 8 oz Intake & Output: Intake & Output 03/08/18 03/09/18 03/09/18 21:59 05:59 13:59 Intake Total 1370 / 1370 2360 / 2360 250 / 250 Output Total 1350 / 1350 2455 / 2455 1715 / 1715 Balance 20 / 20 -95 / -95 -1465 / -1465 Weight 216 lb 8 oz Intake: IV 1999 / 1999 Sodium Chloride 0.45% 1,000 ml 1000 / 1000 @ 75 mls/hr IV .[id number] [facility] Rx# :[id number] Sodium Bicarbonate Vial 150 Meq 1000 / 1000 In Dextrose 5% in Water 850 ml @ 75 mls/hr IV Q20H [facility] Rx#: [id number] Oral 720 / 720 360 / 360 250 / 250 Blood Product 650 / 650 Output: Urine Catheter Amount 1350 / 1350 2455 / 2455 1715 / 1715 Other: Meal Dinner Breakfast Percent of Meal Consumed 25% 50% Feeding Ability Independent Exam: Constitutional; Afebrile, cooperative, alert, not in distress. Eyes- No icterus, , No periorbital swelling Ears- Ext ear normal, hearing normal to conversation. Neck- Midline trachea, supple Respiratory system: Air Entry equal on both sides, No crackles or wheezing, no rhonchi. CVS- Rate rhythm regular, S1,S2 heard, no gallop, no rub. Abdomen- Soft nontender abdomen, no organomegaly, no tenderness, no guarding or rigidity, [employer]- AOOx3, moving all extremities, no gross focal deficit noted. Medical - PN: Obj Da - Labs CBC & Chem 7: 03/09/18 04:00 03/09/18 04:00 Labs: Abnormal Lab Results 03/09/18 03/09/18 03/08/18 04:00 04:00 18:35 RBC 2.82 L Hgb 8.8 L Hct 25.8 L POC Hct Plt Count 126 L Gran % Lymph % (Auto) Lymph # (Auto) Seg Neutrophils % Lymphocytes % POC PT POC INR POC Potassium Potassium 5.4 H POC Chloride Carbon Dioxide POC Total CO2 Anion Gap 21.0 H 21.0 H POC BUN BUN 105 H* 118 H* Creatinine 14.9 H* 15.9 H* POC Creatinine Glucose Uric Acid Calcium 7.6 L 8.0 L POC WB Ioniz Calcium Ionized Calcium Lucina Phosphorus 9.0 H* Urine Protein Urine Glucose (UA) Urine Occult Blood Ur Leukocyte Esterase Urine WBC 03/08/18 03/08/18 03/07/18 03:49 03:49 18:10 RBC 1.95 L Hgb 6.3 L* Hct 17.8 L* POC Hct Plt Count 106 L Gran % Lymph % (Auto) Lymph # (Auto) Seg Neutrophils % 91 H Lymphocytes % 6 L POC PT POC INR POC Potassium Potassium POC Chloride Carbon Dioxide 17 L 12 L POC Total CO2 Anion Gap 23.0 H 25.0 H POC BUN BUN 123 H* 134 H* Creatinine 17.1 H* 17.9 H* POC Creatinine Glucose 112 H Uric Acid 8.5 H 8.1 H Calcium 8.1 L POC WB Ioniz Calcium Ionized Calcium Lucina 1.02 L Phosphorus 10.6 H* 9.3 H* Urine Protein Urine Glucose (UA) Urine Occult Blood Ur Leukocyte Esterase Urine WBC 03/07/18 03/07/18 03/07/18 17:17 15:25 15:25 RBC Hgb Hct POC Hct Plt Count Gran % Lymph % (Auto) Lymph # (Auto) Seg Neutrophils % Lymphocytes % POC PT 17.2 H POC INR 1.5 H POC Potassium Potassium 7.0 H* POC Chloride Carbon Dioxide 12 L POC Total CO2 Anion Gap 25.0 H POC BUN BUN 133 H* Creatinine 17.6 H* POC Creatinine Glucose Uric Acid Calcium 7.8 L POC WB Ioniz Calcium Ionized Calcium Lucina Phosphorus Urine Protein 30 A Urine Glucose (UA) 50 A Urine Occult Blood 0.03 A Ur Leukocyte Esterase 250 A Urine WBC 16 H 03/07/18 03/07/18 15:25 15:25 RBC 2.32 L Hgb 7.3 L Hct 21.1 L POC Hct 20.0 L* Plt Count 129 L Gran % 83.9 H Lymph % (Auto) 8.1 L Lymph # (Auto) 0.6 L Seg Neutrophils % Lymphocytes % POC PT POC INR POC Potassium 6.7 H* Potassium POC Chloride 110 H Carbon Dioxide POC Total CO2 14 L Anion Gap POC BUN 134 H* BUN Creatinine POC Creatinine 19.7 H* Glucose Uric Acid Calcium POC WB Ioniz Calcium 1.01 L Ionized Calcium Lucina Phosphorus Urine Protein Urine Glucose (UA) Urine Occult Blood Ur Leukocyte Esterase Urine WBC Meds: Medications Acetaminophen (Tylenol) 650 mg PO Q4-6HP PRN PRN Reason: PAIN/FEVER > 101 Amlodipine Besylate (Norvasc) 5 mg PO DAILY [facility] Last Admin: 03/09/18 07:53 Dose: 5 mg Ciprofloxacin (Cipro) 250 mg PO DAILY [facility] Stop: 03/15/18 08:59 Last Admin: 03/09/18 10:40 Dose: 250 mg Docusate Sodium (Colace) 100 mg PO BID [facility] Last Admin: 03/09/18 07:53 Dose: Not Given Acetaminophen (Ofirmev) 650 mg in 65 mls @ 130 mls/hr IV Q6HP PRN PRN Reason: PAIN/FEVER > 101 Last Infusion: 03/08/18 12:21 Dose: Infused Sodium Chloride (Sodium Chloride 0.45%) 1,000 mls @ 100 mls/hr IV .Q10H [facility] Last Admin: 03/09/18 10:39 Dose: 100 mls/hr Iron Carb/Multivit/[place]/Folic Acid (Multivitamin W/Minerals) 1 tab PO DAILY [facility] Last Admin: 03/09/18 07:53 Dose: 1 tab Ondansetron HCl (Zofran) 4 mg IV Q4-6HP PRN PRN Reason: Nausea And Vomiting Ondansetron HCl (Zofran Odt) 8 mg SL TIDP PRN PRN Reason: Nausea Prochlorperazine Maleate (Compazine) 10 mg PO Q6HP PRN PRN Reason: Nausea Promethazine HCl (Phenergan) 6.25 mg IV Q4-6HP PRN PRN Reason: Nausea And Vomiting Senna/Docusate Sodium (Senna Plus Tablet) 1 tab PO HS [facility] Last Admin: 03/08/18 20:44 Dose: Not Given Sevelamer Carbonate (Renvela) 1,600 mg PO TIDCC [facility] Last Admin: 03/09/18 12:01 Dose: 1,600 mg Sodium Chloride (Saline Flush) 10 ml IV Q8 [facility] Last Admin: 03/09/18 07:45 Dose: 10 ml Medical - PN: A/P - Time Spent With Patient Total time spent is greater than 50% in coordination of care (as documented) at patient's floor/unit and/or counseling patient: - Narrative A/P Narrative: A/P Acute renal failure: likely due to post obstructive pathology, also had nausea and vmoiting, not sure if nausea nad vomiting was relate to renal failure. IVF< improving, monitor Urinary tract infection: severe allergy to penicillin, on cipro. Obstructive Uropathy: ballesteros in place, st/p stent by Dr Branch Anemia : ? lower gib, if new, will get GI involvement. also has anemia of chr disease, 2 units blood given with appropriate rise, monitor. CA Cervix, metastatic: pt does not wish further treatment. Metabolic acidosis resolved, off bicarb drip, now iv f, half ns. DVT -SCD DIet - renal diet Code - DNR Medical - PN: Qual - VTE Deep Vein Thrombosis/Pulmonary Embolism Present on Admission: No
[2018-03-09 19:05] LABS: Blood Urea Nitrogen 95 mg/dl (6-20)
[2018-03-09] MEDS: SODIUM BICARBONATE VIAL 150 MEQ in DEXTROSE 5% IN WATER 850 ML IV SCH (19:43)
[2018-03-09] MEDS: SENNOSIDES/DOCUSATE SODIUM 1 TAB TABLET PO SCH (21:03)
[2018-03-10] MEDS: 0.45 % SODIUM CHLORIDE 1,000 ML IV SCH ×5 (01:24→23:31)
[2018-03-10] MEDS: 0.9 % SODIUM CHLORIDE 10 ML SYRINGE IV SCH ×5 (03:15→21:00)
[2018-03-10] MEDS: 0.9 % SODIUM CHLORIDE 1,000 ML IV SCH (03:15)
[2018-03-10] MEDS: DOCUSATE SODIUM 100 MG CAPSULE PO SCH ×3 (03:16→20:45)
[2018-03-10 06:57] LABS: Eosinophils % (Manual) 6 % (0-7); Lymphocytes % 14 % (15-49); Monocytes % (Manual) 5 % (1-12); Platelet Estimate DECREASED (NORMAL); RBC Morphology NORMAL (NORMAL); Segmented Neutrophils % 75 % (38-78)
[2018-03-10 06:58] LABS: ALT/SGPT 9 U/l (0-40); Albumin/Globulin Ratio 1.5 (1.0-2.3); Alkaline Phosphatase 49 U/L (39-117); Bilirubin,Direct < 0.2 mg/dL (0.0-0.3); Blood Urea Nitrogen 86 mg/dl (6-20); Gamma Glutamyl Transpeptidase 14 U/L (5-36); Uric Acid 5.6 mg/dL (2.5-8.0)
[2018-03-10 07:08] LABS: Mean Corpuscular Hemoglobin 30.9 pg (26.0-34.0); Platelet Count 127 K/mcL (140-440); RBC 3.03 M/mcL (4.00-5.20); Red Cell Distribution Width 13.2 % (11.5-14.5)
[2018-03-10] MEDS ORDERED: POTASSIUM CHLORIDE 20 MEQ PACKET PO ONE (07:16)
[2018-03-10] MEDS ORDERED: MAGNESIUM SULFATE 2 GM/50 ML BAG IV ONE (07:16)
[2018-03-10] MEDS ORDERED: PROMETHAZINE 25 MG/ML VIAL IV PRN (07:33)
[2018-03-10] MEDS ORDERED: PROCHLORPERAZINE MALEATE 10 MG TABLET PO PRN (07:33)
[2018-03-10] MEDS ORDERED: ACETAMINOPHEN 650 MG/65 ML BOTTLE IV PRN (07:33)
[2018-03-10] MEDS ORDERED: ACETAMINOPHEN 325 MG TABLET PO PRN (07:33)
[2018-03-10] MEDS ORDERED: ONDANSETRON 4 MG/2 ML VIAL IV PRN (07:33)
[2018-03-10] MEDS ORDERED: ONDANSETRON ODT 4 MG TABLET SL PRN (07:33)
[2018-03-10] MEDS: SEVELAMER 800 MG TABLET PO SCH ×3 (08:10→17:25)
[2018-03-10] MEDS: CIPROFLOXACIN 250 MG TABLET PO SCH (09:19)
[2018-03-10] MEDS: MULTIVIT,THER IRON,CA,FA & MIN 1 TABLET PO SCH (09:20)
[2018-03-10] MEDS: amLODIPine 5 MG TABLET PO SCH (09:20)
--- NOTE | 2018-03-10 10:11 | Internal Med Progress Note ---
Medical - PN: Subj Patient information: Note initiated : 03/10/18 at 10:09 am Service Date, if different from initiated Date: [] Patient: Leonor Thompson a 43 y/o F admitted on 03/07/18 for Nausea, Vomiting/ Renal Failure. Chief Complaint: [] Interval history: Ms. Thompson is a 43 year old F with a history of stage IV cervical cancer with ongoing chemotherapy last session 2017. Patient has been doing well until roughly 8-10 days prior to presentation when she started experiencing progressive nausea followed by vomiting,diarrhea , loss of appetite and inability to tolerate anything by mouth. Patient's condition has continued to deteriorate to the point she has not be able to function due to fatigue. She was evaluated at [facility] today and was directed to the ER with abnormal labs. Initial workup was significant for potassium at 7 along with metabolic acidosis and creatinine of over 19. Abdominal imaging including ultrasound and CT scan showed mild hydronephrosis without any evidence of obstruction. Nephrology was consulted. Patient was started on hyperkalemia protocol along with bicarbonate drip per nephrology. hospitalist service was subsequently consulted for admission in light of acute renal failure, hyperkalemia. At the time of evaluation patient is accompanied with her Darshan. She was able to provide history as above She also complains of blood in stool but denies recent URI symptoms, fever, chills, SOB . She denies NSAID intake. Denies headache photophobia but endorses to read IV from recurrent vomiting and retching 03/08- patient underwent renal stenting by urology for obstructive uropathy. hemoglobin of 6.3. Transfuse 2 units PRBC.potassium down from 74.9. Creatinine down from 19.7-17.1. BUN at 123 from 134. phosphorus 10.6. Nephrology managing renal failure/hyperkalemia and acidosis. No overnight events or concerns per staff. No telemetry events. Appears drowsy, Foleys draining >600 cc/Hr urine outputs since procedure 03/09 Patient seen and examined, status post stenting by urology, no acute events. Hemoglobin stable received 2 units yesterday. Labs are stable renal function is improving, phosphorus is high creatinine still high but trending down. Patient is negative balance since admission. Bicarbonate is normal the drip has been discontinued patient is now on just half NS. Monitor with this for now monitored renal function as well as urine output. Patient is DO NOT RESUSCITATE has advanced malignancy which has failed radiation as well as chemo does not plan to undergo any more treatments from the cancer standpoint. 03/10 Patient seen and examined, no acute overnight events. Had some muscle cramping. Magnesium was low at 1.4. Potassium was 3.7. Replaced. Patient denies any other acute complaints or concerns. BUN is coming down around 85-86 today. Creatinine is 11.9 trending down. Patient is making adequate amounts of urine is still polyuric. Being replaced with IV fluids, the patient had 6000 mL urine output yesterday. Pertinent ROS: Denies headache, dizziness Denies chest pain, palpitations Denies cough or shortness of breath Denies abdominal pain, nausea or vomiting. - Constitutional Vitals: Vital Signs Temp Pulse Resp BP Pulse Ox 98.8 F 72 18 154/103 95 03/10/18 07:14 03/10/18 00:00 03/10/18 07:14 03/10/18 07:14 03/10/18 07:14 Period Temp Pulse Resp BP Sys/Harris Pulse Ox Last 24 Hr 97.9 F-99.0 F 72-83 16-20 133-173/84-116 92-99 Intake and Output 03/09/18 03/10/18 03/10/18 21:59 05:59 13:59 Intake Total 3823 / 3823 863 / 863 240 / 240 Output Total 1770 / 1770 2620 / 2620 990 / 990 Balance 2052 -1757 / -1757 -750 / -750 Weight 210 lb 8 oz Intake & Output: Intake & Output 03/09/18 03/10/18 03/10/18 21:59 05:59 13:59 Intake Total 3823 / 3823 863 / 863 240 / 240 Output Total 1770 / 1770 2620 / 2620 990 / 990 Balance 2052 -1757 / -1757 -750 / -750 Weight 210 lb 8 oz Intake: IV 3583 / 3583 863 / 863 Sodium Chloride 0.45% 1,000 ml 738 / 738 863 / 863 @ 150 mls/hr IV .Q6H40M [facility] Rx# :[id number] Oral 240 / 240 240 / 240 Output: Urine Catheter Amount 1770 / 1770 2620 / 2620 990 / 990 Other: Meal Dinner Breakfast Percent of Meal Consumed 80 50% Feeding Ability Independent Independent Exam: Constitutional; Afebrile, cooperative, alert, not in distress. Eyes- No icterus, , No periorbital swelling Ears- Ext ear normal, hearing normal to conversation. Neck- Midline trachea, supple Respiratory system: Air Entry equal on both sides, No crackles or wheezing, no rhonchi. CVS- Rate rhythm regular, S1,S2 heard, no gallop, no rub. Abdomen- Soft nontender abdomen, no organomegaly, no tenderness, no guarding or rigidity, [employer]ESS [employer]KER- AOOx3, moving all extremities, no gross focal deficit noted. Medical - PN: Obj Da - Labs CBC & Chem 7: 03/10/18 04:24 03/10/18 04:24 Labs: Abnormal Lab Results 03/10/18 03/10/18 03/09/18 04:24 04:24 17:53 RBC 3.03 L Hgb 9.4 L Hct 27.6 L POC Hct Plt Count 127 L MPV 7.3 L Gran % Lymph % (Auto) Lymph # (Auto) Seg Neutrophils % Lymphocytes % 14 L POC PT POC INR POC Potassium Potassium POC Chloride Chloride 95 L Carbon Dioxide 21 L POC Total CO2 Anion Gap 21.0 H 22.0 H POC BUN BUN 86 H 95 H Creatinine 11.9 H* 13.0 H* POC Creatinine Glucose Uric Acid Calcium 7.1 L 7.5 L POC WB Ioniz Calcium Ionized Calcium Lucina Phosphorus 6.8 H* Magnesium 1.4 L Urine Protein Urine Glucose (UA) Urine Occult Blood Ur Leukocyte Esterase Urine WBC 03/09/18 03/09/18 03/08/18 04:00 04:00 18:35 RBC 2.82 L Hgb 8.8 L Hct 25.8 L POC Hct Plt Count 126 L MPV Gran % Lymph % (Auto) Lymph # (Auto) Seg Neutrophils % Lymphocytes % POC PT POC INR POC Potassium Potassium 5.4 H POC Chloride Chloride Carbon Dioxide POC Total CO2 Anion Gap 21.0 H 21.0 H POC BUN BUN 105 H* 118 H* Creatinine 14.9 H* 15.9 H* POC Creatinine Glucose Uric Acid Calcium 7.6 L 8.0 L POC WB Ioniz Calcium Ionized Calcium Lucina Phosphorus 9.0 H* Magnesium Urine Protein Urine Glucose (UA) Urine Occult Blood Ur Leukocyte Esterase Urine WBC 03/08/18 03/08/18 03/07/18 03:49 03:49 18:10 RBC 1.95 L Hgb 6.3 L* Hct 17.8 L* POC Hct Plt Count 106 L MPV Gran % Lymph % (Auto) Lymph # (Auto) Seg Neutrophils % 91 H Lymphocytes % 6 L POC PT POC INR POC Potassium Potassium POC Chloride Chloride Carbon Dioxide 17 L 12 L POC Total CO2 Anion Gap 23.0 H 25.0 H POC BUN BUN 123 H* 134 H* Creatinine 17.1 H* 17.9 H* POC Creatinine Glucose 112 H Uric Acid 8.5 H 8.1 H Calcium 8.1 L POC WB Ioniz Calcium Ionized Calcium Lucina 1.02 L Phosphorus 10.6 H* 9.3 H* Magnesium Urine Protein Urine Glucose (UA) Urine Occult Blood Ur Leukocyte Esterase Urine WBC 03/07/18 03/07/18 03/07/18 17:17 15:25 15:25 RBC Hgb Hct POC Hct Plt Count MPV Gran % Lymph % (Auto) Lymph # (Auto) Seg Neutrophils % Lymphocytes % POC PT 17.2 H POC INR 1.5 H POC Potassium Potassium 7.0 H* POC Chloride Chloride Carbon Dioxide 12 L POC Total CO2 Anion Gap 25.0 H POC BUN BUN 133 H* Creatinine 17.6 H* POC Creatinine Glucose Uric Acid Calcium 7.8 L POC WB Ioniz Calcium Ionized Calcium Lucina Phosphorus Magnesium Urine Protein 30 A Urine Glucose (UA) 50 A Urine Occult Blood 0.03 A Ur Leukocyte Esterase 250 A Urine WBC 16 H 03/07/18 03/07/18 15:25 15:25 RBC 2.32 L Hgb 7.3 L Hct 21.1 L POC Hct 20.0 L* Plt Count 129 L MPV Gran % 83.9 H Lymph % (Auto) 8.1 L Lymph # (Auto) 0.6 L Seg Neutrophils % Lymphocytes % POC PT POC INR POC Potassium 6.7 H* Potassium POC Chloride 110 H Chloride Carbon Dioxide POC Total CO2 14 L Anion Gap POC BUN 134 H* BUN Creatinine POC Creatinine 19.7 H* Glucose Uric Acid Calcium POC WB Ioniz Calcium 1.01 L Ionized Calcium Lucina Phosphorus Magnesium Urine Protein Urine Glucose (UA) Urine Occult Blood Ur Leukocyte Esterase Urine WBC Meds: Medications Acetaminophen (Tylenol) 650 mg PO Q4-6HP PRN PRN Reason: PAIN/FEVER > 101 Amlodipine Besylate (Norvasc) 5 mg PO DAILY [facility] Last Admin: 03/10/18 09:20 Dose: 5 mg Ciprofloxacin (Cipro) 250 mg PO DAILY [facility] Stop: 03/15/18 08:59 Last Admin: 03/10/18 09:19 Dose: 250 mg Docusate Sodium (Colace) 100 mg PO BID [facility] Last Admin: 03/10/18 09:20 Dose: 100 mg Acetaminophen (Ofirmev) 650 mg in 65 mls @ 130 mls/hr IV Q6HP PRN PRN Reason: PAIN/FEVER > 101 Sodium Chloride (Sodium Chloride 0.45%) 1,000 mls @ 150 mls/hr IV .Q6H40M [facility] Last Admin: 03/10/18 09:23 Dose: 150 mls/hr Iron Carb/Multivit/[employer]/Folic Acid (Multivitamin W/Minerals) 1 tab PO DAILY [facility] Last Admin: 03/10/18 09:20 Dose: 1 tab Ondansetron HCl (Zofran) 4 mg IV Q4-6HP PRN PRN Reason: Nausea And Vomiting Ondansetron HCl (Zofran Odt) 8 mg SL TIDP PRN PRN Reason: Nausea Prochlorperazine Maleate (Compazine) 10 mg PO Q6HP PRN PRN Reason: Nausea Promethazine HCl (Phenergan) 6.25 mg IV Q4-6HP PRN PRN Reason: Nausea And Vomiting Senna/Docusate Sodium (Senna Plus Tablet) 1 tab PO HS [facility] Sevelamer Carbonate (Renvela) 1,600 mg PO TIDCC [facility] Last Admin: 03/10/18 08:10 Dose: 1,600 mg Sodium Chloride (Saline Flush) 10 ml IV Q8 [facility] Medical - PN: A/P - Time Spent With Patient Total time spent is greater than 50% in coordination of care (as documented) at patient's floor/unit and/or counseling patient: - Narrative A/P Narrative: A/P Acute renal failure: likely due to post obstructive pathology, creat is 11.9, bun 85, good urine ouput, monitor, she is neg balance since admission, which is expected as she has post obstructive diuresis. Hypokalemia/ hypomagnesemia, replace. Urinary tract infection: severe allergy to penicillin, on cipro. Obstructive Uropathy: ballesteros in place, st/p stent by Dr Branch Anemia : ? lower gib, if new, will get GI involvement. also has anemia of chr disease, 2 units blood given with appropriate rise, monitor. CA Cervix, metastatic: pt does not wish further treatment. Metabolic acidosis resolved, off bicarb drip, now iv f, half ns. DVT -SCD DIet - renal diet Code - DNR xfer to tele status, Medical - PN: Qual - VTE Deep Vein Thrombosis/Pulmonary Embolism Present on Admission: No
--- NOTE | 2018-03-10 16:59 | Nephrology Progress Note ---
Subjective Patient information: Note initiated : 03/10/18 at 4:54 pm Service Date, if different from initiated Date: [] Patient: Leonor Thompson 43 y/o F admitted on 03/07/18 for Nausea, Vomiting/ Renal Failure. Chief Complaint: [] Principal diagnosis: JYOTSNA Interval history: no overnight events remains polyuric with slowly improving renal function intermittent nausea appetite slowly improving no SOB, CP does have some LE edema no other issues anxious to go home Pertinent ROS: as above Objective - Vital Signs Vital signs: Vital Signs Temp Pulse Resp BP BP Pulse Ox 03/10/18 11:59 98.6 F 16 153/91 98 03/10/18 11:28 18 147/88 03/10/18 10:16 98.4 F 18 160/96 96 03/10/18 07:14 98.8 F 18 154/103 95 03/10/18 04:15 99.0 F H 20 143/84 92 03/10/18 00:07 98.3 F 20 144/95 93 03/10/18 00:00 72 96 03/09/18 22:00 98.8 F 75 16 160/105 98 03/09/18 21:10 98.8 F 16 160/105 97 03/09/18 19:03 98.9 F 16 158/106 94 03/09/18 18:01 16 172/102 96 03/09/18 18:00 83 98 03/09/18 17:01 165/102 Intake and Output 03/10/18 03/10/18 03/10/18 05:59 13:59 21:59 Intake Total 863 / 863 240 / 240 Output Total 2620 / 2620 990 / 990 2074 Balance -1757 / -1757 -750 / -750 -2074 / Intake: IV 863 / 863 Sodium Chloride 0.45% 1,000 ml 863 / 863 @ 150 mls/hr IV .Q6H40M [facility] Rx# :[id number] Oral 240 / 240 Output: Urine Catheter Amount 2620 / 2620 990 / 990 2074 Other: Meal Breakfast Percent of Meal Consumed 50% Feeding Ability Independent Intake & Output: Intake & Output 03/10/18 03/10/18 03/10/18 05:59 13:59 21:59 Intake Total 863 / 863 240 / 240 Output Total 2620 / 2620 990 / 990 2074 Balance -1757 / -1757 -750 / -750 -2074 Intake: IV 863 / 863 Sodium Chloride 0.45% 1,000 ml 863 / 863 @ 150 mls/hr IV .Q6H40M [facility] Rx# :[id number] Oral 240 / 240 Output: Urine Catheter Amount 2620 / 2620 990 / 990 2074 Other: Meal Breakfast Percent of Meal Consumed 50% Feeding Ability Independent - General Appearance General appearance: appears started age, chronically ill EENT: mucous membranes moist Neck: no JVD Respiratory: clear Cardiology: no rub, normal S1, normal S2 Gastrointestinal: no tenderness, no guarding Integumentary: warm and dry Neurologic: alert and oriented x3 Musculoskeletal: no erythema, no cyanosis Psychiatric: mood/affect appropriate - Lab 03/10/18 04:24 03/10/18 04:24 Most recent lab results Calcium 7.1 mg/dl (8.6-10.4) L 03/10/18 04:24 Phosphorus 6.8 mg/dL (2.7-4.5) H* 03/10/18 04:24 Magnesium 1.4 mg/dL (1.6-2.5) L 03/10/18 04:24 Assessment and Plan (1) Acute renal failure likely post obstructive renal function improving gradually patient is polyuric and will not be able to replace loses if discharged, hence will continue to monitor K borderline low, she also has low mag which will be monitored and repleted on amlodipine for HTN [Phos is trending down, on renvela continue Ivf at current rate today, will cut back tomorrow will monitor serum electrolytes and renal function avoid nephrotoxic meds dose meds to egfr less than 10 for now anemia s/p PRBC transfusion, Hb stable for now metastatic stage IV cervical cancer Will follow along Thank you for giving me an opportunity to participate in Ms Thompson's medical care , appreciate it Status: Acute (2) Hyperkalemia Status: Acute (3) Metabolic acidosis Status: Acute (4) Anemia Status: Acute
[2018-03-10] MEDS ORDERED: SENNOSIDES/DOCUSATE SODIUM 1 TAB TABLET PO SCH (21:00)
[2018-03-11 05:25] LABS: Mean Cell Volume 91.1 fL (80.0-100.0); Mean Corpuscular HGB Conc 34.2 g/dL (31.0-36.0); Mean Corpuscular Hemoglobin 31.2 pg (26.0-34.0); Platelet Count 131 K/mcL (140-440); RBC 3.25 M/mcL (4.00-5.20); Red Cell Distribution Width 12.9 % (11.5-14.5)
[2018-03-11 06:02] LABS: ALT/SGPT 8 U/l (0-40); Albumin 4.3 gm/dL (3.2-5.2); Albumin/Globulin Ratio 1.7 (1.0-2.3); Alkaline Phosphatase 51 U/L (39-117); Bilirubin,Direct < 0.2 mg/dL (0.0-0.3); Blood Urea Nitrogen 69 mg/dl (6-20); Gamma Glutamyl Transpeptidase 14 U/L (5-36); Uric Acid 4.4 mg/dL (2.5-8.0)
[2018-03-11] MEDS: 0.45 % SODIUM CHLORIDE 1,000 ML IV SCH (06:14)
[2018-03-11 06:53] LABS: Eosinophils % (Manual) 5 % (0-7); Lymphocytes % 17 % (15-49); Monocytes % (Manual) 7 % (1-12); Platelet Estimate DECREASED (NORMAL); RBC Morphology NORMAL (NORMAL); Segmented Neutrophils % 71 % (38-78)
[2018-03-11] MEDS: 0.9 % SODIUM CHLORIDE 10 ML SYRINGE IV SCH ×3 (07:05→20:39)
[2018-03-11] MEDS ORDERED: 0.45 % SODIUM CHLORIDE 1,000 ML IV SCH (07:26)
[2018-03-11] MEDS ORDERED: HEPARIN SODIUM,PORCINE/PF 500 UNIT/5 ML SYRINGE IV ONE (07:33)
[2018-03-11] MEDS: SEVELAMER 800 MG TABLET PO SCH ×3 (07:56→17:10)
[2018-03-11] MEDS: MULTIVIT,THER IRON,CA,FA & MIN 1 TABLET PO SCH (08:45)
[2018-03-11] MEDS: DOCUSATE SODIUM 100 MG CAPSULE PO SCH ×2 (08:45→20:38)
[2018-03-11] MEDS: CIPROFLOXACIN 250 MG TABLET PO SCH (08:45)
[2018-03-11] MEDS: amLODIPine 5 MG TABLET PO SCH (08:45)
[2018-03-11] MEDS ORDERED: cloNIDine HCL 0.1 MG TABLET PO PRN ×2 (09:01→09:11)
[2018-03-11] MEDS ORDERED: ONDANSETRON 4 MG/2 ML VIAL IV PRN (09:11)
[2018-03-11] MEDS ORDERED: PROCHLORPERAZINE MALEATE 10 MG TABLET PO PRN (09:11)
[2018-03-11] MEDS ORDERED: ONDANSETRON ODT 4 MG TABLET SL PRN (09:11)
[2018-03-11] MEDS ORDERED: ACETAMINOPHEN 650 MG/65 ML BOTTLE IV PRN (09:11)
[2018-03-11] MEDS ORDERED: ACETAMINOPHEN 325 MG TABLET PO PRN (09:11)
[2018-03-11] MEDS ORDERED: PROMETHAZINE 25 MG/ML VIAL IV PRN (09:11)
--- NOTE | 2018-03-11 09:29 | Internal Med Progress Note ---
Medical - PN: Subj Patient information: Note initiated : 03/11/18 at 9:26 am Service Date, if different from initiated Date: [] Patient: Leonor Thompson a 43 y/o F admitted on 03/07/18 for Nausea, Vomiting/ Renal Failure. Chief Complaint: [] Interval history: Ms. Thompson is a 43 year old F with a history of stage IV cervical cancer with ongoing chemotherapy last session 2017. Patient has been doing well until roughly 8-10 days prior to presentation when she started experiencing progressive nausea followed by vomiting,diarrhea , loss of appetite and inability to tolerate anything by mouth. Patient's condition has continued to deteriorate to the point she has not be able to function due to fatigue. She was evaluated at [facility] today and was directed to the ER with abnormal labs. Initial workup was significant for potassium at 7 along with metabolic acidosis and creatinine of over 19. Abdominal imaging including ultrasound and CT scan showed mild hydronephrosis without any evidence of obstruction. Nephrology was consulted. Patient was started on hyperkalemia protocol along with bicarbonate drip per nephrology. hospitalist service was subsequently consulted for admission in light of acute renal failure, hyperkalemia. At the time of evaluation patient is accompanied with her Darshan. She was able to provide history as above She also complains of blood in stool but denies recent URI symptoms, fever, chills, SOB . She denies NSAID intake. Denies headache photophobia but endorses to read IV from recurrent vomiting and retching 03/08- patient underwent renal stenting by urology for obstructive uropathy. hemoglobin of 6.3. Transfuse 2 units PRBC.potassium down from 74.9. Creatinine down from 19.7-17.1. BUN at 123 from 134. phosphorus 10.6. Nephrology managing renal failure/hyperkalemia and acidosis. No overnight events or concerns per staff. No telemetry events. Appears drowsy, Foleys draining >600 cc/Hr urine outputs since procedure 03/09 Patient seen and examined, status post stenting by urology, no acute events. Hemoglobin stable received 2 units yesterday. Labs are stable renal function is improving, phosphorus is high creatinine still high but trending down. Patient is negative balance since admission. Bicarbonate is normal the drip has been discontinued patient is now on just half NS. Monitor with this for now monitored renal function as well as urine output. Patient is DO NOT RESUSCITATE has advanced malignancy which has failed radiation as well as chemo does not plan to undergo any more treatments from the cancer standpoint. 03/10 Patient seen and examined, no acute overnight events. Had some muscle cramping. Magnesium was low at 1.4. Potassium was 3.7. Replaced. Patient denies any other acute complaints or concerns. BUN is coming down around 85-86 today. Creatinine is 11.9 trending down. Patient is making adequate amounts of urine is still polyuric. Being replaced with IV fluids, the patient had 6000 mL urine output yesterday. 03/11 Patient seen and examined, no acute overnight events. Urine output is improving. Patient has no complaints. She has some nausea in the morning which responds to food intake. Add Prilosec today. Patient's creatinine is trending down, BUN is also improving. Monitor for 1 more day on the medical floor, DC IV fluids ensure she is able to maintain her oral intake in line with the urine output anticipate discharge tomorrow. Continue ciprofloxacin for urinary tract infection. Pertinent ROS: Denies headache, dizziness Denies chest pain, palpitations Denies cough or shortness of breath Denies abdominal pain, mild nausea in the morning resolves after eating no vomiting. - Constitutional Vitals: Vital Signs Temp Pulse Resp BP Pulse Ox 98.1 F 72 18 161/115 98 03/11/18 07:20 03/10/18 00:00 03/11/18 07:20 03/11/18 07:20 03/11/18 07:20 Period Temp Pulse Resp BP Sys/Harris Pulse Ox Last 24 Hr 98.0 F-98.7 F 16-18 144-168/88-115 95-100 Intake and Output 03/10/18 03/11/18 03/11/18 21:59 05:59 13:59 Intake Total 1959 1335 / 1335 1240 / 1240 Output Total 2925 / 2925 1949 Balance -965 / -965 -615 / -615 1240 / 1240 Weight 209 lb 3.2 oz Intake & Output: Intake & Output 03/10/18 03/11/18 03/11/18 21:59 05:59 13:59 Intake Total 1959 1335 / 1335 1240 / 1240 Output Total 2925 / 2925 1950 / 1950 Balance -965 / -965 -615 / -615 1240 / 1240 Weight 209 lb 3.2 oz Intake: IV 1000 / 1000 975 / 975 1000 / 1000 Sodium Chloride 0.45% 1,000 ml 1000 / 1000 975 / 975 1000 / 1000 @ 150 mls/hr IV .Q6H40M [facility] Rx# :[id number] Oral 960 / 960 360 / 360 240 / 240 Output: Urine Catheter Amount 2925 / 2925 825 / 825 Void Amount 1125 / 1125 Other: Meal Dinner Percent of Meal Consumed 50% 75% Feeding Ability Independent Independent Exam: Constitutional; Afebrile, cooperative, alert, not in distress. Eyes- No icterus, , No periorbital swelling Ears- Ext ear normal, hearing normal to conversation. Neck- Midline trachea, supple Respiratory system: Air Entry equal on both sides, No crackles or wheezing, no rhonchi. CVS- Rate rhythm regular, S1,S2 heard, no gallop, no rub. 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 Medical - PN: Obj Da - Labs CBC & Chem 7: 03/11/18 03:40 03/11/18 03:40 Labs: Abnormal Lab Results 03/11/18 03/11/18 03/10/18 03:40 03:40 04:24 RBC 3.25 L Hgb 10.1 L Hct 29.6 L Plt Count 131 L MPV 7.3 L Lymphocytes % Potassium Chloride Carbon Dioxide 19 L 21 L Anion Gap 19.0 H 21.0 H BUN 69 H 86 H Creatinine 9.3 H* 11.9 H* Calcium 7.5 L 7.1 L Phosphorus 5.2 H 6.8 H* Magnesium 1.4 L 03/10/18 03/09/18 03/09/18 04:24 17:53 04:00 RBC 3.03 L Hgb 9.4 L Hct 27.6 L Plt Count 127 L MPV 7.3 L Lymphocytes % 14 L Potassium Chloride 95 L Carbon Dioxide Anion Gap 22.0 H 21.0 H BUN 95 H 105 H* Creatinine 13.0 H* 14.9 H* Calcium 7.5 L 7.6 L Phosphorus 9.0 H* Magnesium 03/09/18 03/08/18 04:00 18:35 RBC 2.82 L Hgb 8.8 L Hct 25.8 L Plt Count 126 L MPV Lymphocytes % Potassium 5.4 H Chloride Carbon Dioxide Anion Gap 21.0 H BUN 118 H* Creatinine 15.9 H* Calcium 8.0 L Phosphorus Magnesium Meds: Medications Acetaminophen (Tylenol) 650 mg PO Q4-6HP PRN PRN Reason: PAIN/FEVER > 101 Amlodipine Besylate (Norvasc) 5 mg PO DAILY [facility] Ciprofloxacin (Cipro) 250 mg PO DAILY [facility] Stop: 03/15/18 08:59 Clonidine HCl (Catapres) 0.1 mg PO Q4HP PRN PRN Reason: Hypertension Docusate Sodium (Colace) 100 mg PO BID [facility] Acetaminophen (Ofirmev) 650 mg in 65 mls @ 130 mls/hr IV Q6HP PRN PRN Reason: PAIN/FEVER > 101 Iron Carb/Multivit/Brazos/Folic Acid (Multivitamin W/Minerals) 1 tab PO DAILY [facility] Ondansetron HCl (Zofran) 4 mg IV Q4-6HP PRN PRN Reason: Nausea And Vomiting Ondansetron HCl (Zofran Odt) 8 mg SL TIDP PRN PRN Reason: Nausea Prochlorperazine Maleate (Compazine) 10 mg PO Q6HP PRN PRN Reason: Nausea Promethazine HCl (Phenergan) 6.25 mg IV Q4-6HP PRN PRN Reason: Nausea And Vomiting Senna/Docusate Sodium (Senna Plus Tablet) 1 tab PO HS [facility] Sevelamer Carbonate (Renvela) 1,600 mg PO TIDCC [facility] Sodium Chloride (Saline Flush) 10 ml IV Q8 [facility] Medical - PN: A/P - Time Spent With Patient Total time spent is greater than 50% in coordination of care (as documented) at patient's floor/unit and/or counseling patient: - Narrative A/P Narrative: A/P Acute renal failure: likely due to post obstructive pathology, creat and bun trending down, good urine output, d/c IVF and monitor. Hypokalemia/ hypomagnesemia, :Stable now. HTN: on amlodipine, prn clonidine added Urinary tract infection: severe allergy to penicillin, on cipro. Obstructive Uropathy: ballesteros in place, st/p stent by Dr Branch Anemia : ? lower gib, if new, will get GI involvement. also has anemia of chr disease, 2 units blood given with appropriate rise, monitor. CA Cervix, metastatic: pt does not wish further treatment. Metabolic acidosis bicarb trending down again, but was on half NS, will review labs and decide if needs bicarb replacement. DVT -SCD DIet - renal diet Code - DNR xfer to med surg Medical - PN: Qual - VTE Deep Vein Thrombosis/Pulmonary Embolism Present on Admission: No
[2018-03-11] MEDS: OMEPRAZOLE 20 MG CAPSULE PO SCH (09:43)
--- NOTE | 2018-03-11 11:40 | General Surgery Progress Note ---
Subjective Patient reports: feels better Narrative: Note initiated : 03/11/18 at 11:38 am Service Date, if different from initiated Date: [] Patient: Leonor Thompson 43 y/o F admitted on 03/07/18 for Nausea, Vomiting/ Renal Failure. Chief Complaint: [] patient improved. urine red but have reassured her. can remove catheter per hospitalist. will f/u in office. greater than 15 minutes spent in discussion. Objective Temp Pulse Resp BP Pulse Ox 98.1 F 72 18 161/115 98 03/11/18 07:20 03/10/18 00:00 03/11/18 07:20 03/11/18 07:20 03/11/18 07:20 - Additional Data Intake & Output - Last 24 hours: Intake & Output 03/09/18 03/10/18 03/11/18 03/12/18 05:59 05:59 05:59 05:59 Intake Total 4835 / 4835 5426 / 5426 3895 / 3895 1590 / 1590 Output Total 6045 / 6045 6505 / 6505 5865 / 5865 Balance -1210 / -1210 -1079 / -1079 -1969 / -1969 1590 / 1590 Weight 216 lb 8 oz 210 lb 8 oz 209 lb 3.2 oz - Labs 03/11/18 03:40 03/11/18 03:40 Diabetes panel 03/11/18 Range/Units 03:40 Sodium 140 (133-145) mmol/L Potassium 3.8 (3.3-5.1) mmol/L Chloride 102 (96-108) mmol/L Carbon Dioxide 19 L (22-30) mmol/L BUN 69 H (6-20) mg/dl Creatinine 9.3 H* (0.6-1.1) mg/dl Glucose 74 (70-105) mg/dL Calcium 7.5 L (8.6-10.4) mg/dl AST 7 (0-37) U/l ALT 8 (0-40) U/l Alkaline Phosphatase 51 (39-117) U/L Total Protein 6.9 (5.9-8.4) gm/dL Albumin 4.3 (3.2-5.2) gm/dL Triglycerides 108 (<150) mg/dl Calcium panel 03/11/18 Range/Units 03:40 Calcium 7.5 L (8.6-10.4) mg/dl Phosphorus 5.2 H (2.7-4.5) mg/dL Albumin 4.3 (3.2-5.2) gm/dL Pituitary panel 03/11/18 Range/Units 03:40 Sodium 140 (133-145) mmol/L Potassium 3.8 (3.3-5.1) mmol/L Chloride 102 (96-108) mmol/L Carbon Dioxide 19 L (22-30) mmol/L BUN 69 H (6-20) mg/dl Creatinine 9.3 H* (0.6-1.1) mg/dl Glucose 74 (70-105) mg/dL Calcium 7.5 L (8.6-10.4) mg/dl Adrenal panel 03/11/18 Range/Units 03:40 Sodium 140 (133-145) mmol/L Potassium 3.8 (3.3-5.1) mmol/L Chloride 102 (96-108) mmol/L Carbon Dioxide 19 L (22-30) mmol/L BUN 69 H (6-20) mg/dl Creatinine 9.3 H* (0.6-1.1) mg/dl Glucose 74 (70-105) mg/dL Calcium 7.5 L (8.6-10.4) mg/dl Total Bilirubin 0.4 (0.0-1.0) mg/dL AST 7 (0-37) U/l ALT 8 (0-40) U/l Alkaline Phosphatase 51 (39-117) U/L Total Protein 6.9 (5.9-8.4) gm/dL Albumin 4.3 (3.2-5.2) gm/dL Assessment and Plan - Time Spent With Patient Total time spent is greater than 50% in coordination of care (as documented) at patient's floor/unit and/or counseling patient:
--- NOTE | 2018-03-11 20:21 | Nephrology Progress Note ---
Subjective Patient information: Note initiated : 03/11/18 at 8:18 pm Service Date, if different from initiated Date: [] Patient: Leonor Thompson 43 y/o F admitted on 03/07/18 for Nausea, Vomiting/ Renal Failure. Chief Complaint: [] Principal diagnosis: JYOTSNA Interval history: NO OVERNIGHT EVENTS FEELS BETTER no SOB, CP no edema BP remains elevated remains polyuric Pertinent ROS: as above Objective - Vital Signs Vital signs: Vital Signs Temp Pulse Resp BP BP BP BP 03/11/18 19:11 98.0 F 82 16 164/104 03/11/18 16:00 97.1 F 18 177/115 03/11/18 12:00 97.3 F 16 165/96 03/11/18 07:20 98.1 F 18 161/115 03/11/18 07:18 161/115 03/11/18 03:44 98.4 F 17 144/103 03/10/18 23:38 98.0 F 16 155/99 03/10/18 20:40 98.7 F 18 168/108 Pulse Ox 03/11/18 19:11 100 03/11/18 16:00 99 03/11/18 12:00 100 03/11/18 07:20 98 03/11/18 07:18 03/11/18 03:44 95 03/10/18 23:38 96 03/10/18 20:40 100 Intake and Output 03/11/18 03/11/18 03/11/18 05:59 13:59 21:59 Intake Total 1335 / 1335 1590 / 1590 2640 / 2640 Output Total 1950 / 1950 960 / 960 1600 / 1600 Balance -615 / -615 630 / 630 1040 / 1040 Intake: IV 975 / 975 1000 / 1000 Sodium Chloride 0.45% 1,000 ml 975 / 975 1000 / 1000 @ 150 mls/hr IV .Q6H40M [facility] Rx# :[id number] Oral 360 / 360 240 / 240 2640 / 2640 GI Tube Flush 350 / 350 Output: Urine Catheter Amount 825 / 825 960 / 960 Void Amount 1125 / 1125 1600 / 1600 Other: Meal Dinner Percent of Meal Consumed 75% 100% Feeding Ability Independent Independent Weight 209 lb 3.2 oz Patient Weight 03/12/18 05:59 Weight 209 lb 3.2 oz Intake & Output: Intake & Output 03/11/18 03/11/18 03/11/18 05:59 13:59 21:59 Intake Total 1335 / 1335 1590 / 1590 2640 / 2640 Output Total 1950 / 1950 960 / 960 1600 / 1600 Balance -615 / -615 630 / 630 1040 / 1040 Weight 209 lb 3.2 oz Intake: IV 975 / 975 1000 / 1000 Sodium Chloride 0.45% 1,000 ml 975 / 975 1000 / 1000 @ 150 mls/hr IV .Q6H40M [facility] Rx# :[id number] Oral 360 / 360 240 / 240 2640 / 2640 GI Tube Flush 350 / 350 Output: Urine Catheter Amount 825 / 825 960 / 960 Void Amount 1125 / 1125 1600 / 1600 Other: Meal Dinner Percent of Meal Consumed 75% 100% Feeding Ability Independent Independent - General Appearance General appearance: appears started age, obese, chronically ill EENT: mucous membranes moist Neck: no JVD Respiratory: clear Cardiology: no rub, no edema, normal S1, normal S2 Gastrointestinal: no tenderness, no guarding Integumentary: warm and dry Neurologic: alert and oriented x3 Musculoskeletal: no erythema, no cyanosis Psychiatric: mood/affect appropriate - Lab 03/11/18 03:40 03/11/18 03:40 Most recent lab results Calcium 7.5 mg/dl (8.6-10.4) L 03/11/18 03:40 Phosphorus 5.2 mg/dL (2.7-4.5) H 03/11/18 03:40 Magnesium 1.9 mg/dL (1.6-2.5) 03/11/18 03:40 Assessment and Plan (1) Acute renal failure likely post obstructive renal function improving gradually, s.creat down to 9.0 mild acidosis if persistent will start sodium bicarb hold IVF monitor I/O, if renal function continues to improve will plan on discharge tomorrow with close monitoring of renal function as outpatint avoid nephrotoxic meds dose meds to egfr less than 10 for now anemia s/p PRBC transfusion, Hb stable for now metastatic stage IV cervical cancer Will follow along Thank you for giving me an opportunity to participate in Ms Thompson's medical care , appreciate it Status: Acute (2) Metabolic acidosis Status: Acute (3) Anemia Status: Acute
[2018-03-11] MEDS ORDERED: SENNOSIDES/DOCUSATE SODIUM 1 TAB TABLET PO SCH (21:00)
[2018-03-12] MEDS: 0.9 % SODIUM CHLORIDE 10 ML SYRINGE IV SCH (04:20)
[2018-03-12 05:26] LABS: Mean Cell Volume 90.4 fL (80.0-100.0); Mean Corpuscular Hemoglobin 30.7 pg (26.0-34.0); Platelet Count 137 K/mcL (140-440); RBC 3.42 M/mcL (4.00-5.20); Red Cell Distribution Width 12.9 % (11.5-14.5)
[2018-03-12 06:02] LABS: ALT/SGPT 9 U/l (0-40); Albumin 4.5 gm/dL (3.2-5.2); Albumin/Globulin Ratio 1.7 (1.0-2.3); Alkaline Phosphatase 54 U/L (39-117); Bilirubin,Direct < 0.2 mg/dL (0.0-0.3); Blood Urea Nitrogen 60 mg/dl (6-20); Gamma Glutamyl Transpeptidase 13 U/L (5-36); Uric Acid 4.1 mg/dL (2.5-8.0)
[2018-03-12 06:39] LABS: Band Neutrophils % 2 % (0-10); Eosinophils % (Manual) 1 % (0-7); Lymphocytes % 19 % (15-49); Monocytes % (Manual) 13 % (1-12); Ovalocytes OCC (NONE SEEN); Platelet Estimate DECR (NORMAL); RBC Morphology ABNORMAL (NORMAL); Segmented Neutrophils % 64 % (38-78)
[2018-03-12] MEDS: OMEPRAZOLE 20 MG CAPSULE PO SCH (07:28)
[2018-03-12] MEDS: SEVELAMER 800 MG TABLET PO SCH ×2 (07:29→12:02)
[2018-03-12] MEDS ORDERED: CIPROFLOXACIN 250 MG TABLET PO SCH (09:00)
[2018-03-12] MEDS ORDERED: amLODIPine 10 MG TABLET PO SCH (09:00)
[2018-03-12] MEDS ORDERED: amLODIPine 5 MG TABLET PO SCH (09:00)
[2018-03-12] MEDS ORDERED: MULTIVIT,THER IRON,CA,FA & MIN 1 TABLET PO SCH (09:00)
[2018-03-12] MEDS ORDERED: SODIUM BICARBONATE 650 MG TABLET PO SCH (09:00)
[2018-03-12] MEDS: DOCUSATE SODIUM 100 MG CAPSULE PO SCH (09:19)
--- NOTE | 2018-03-12 10:16 | Discharge Summary ---
Medical - DS: Prov Patient information: Note initiated : 03/12/18 at 10:09 am Service Date, if different from initiated Date: [] Patient: Leonor Thompson 43 y/o F admitted on 03/07/18 for Nausea, Vomiting/ Renal Failure. Chief Complaint: [] Date of admission: 03/07/18 18:29 Discharge date: 03/12/18 Primary care physician: Elsa Preston Admitting clinician: Michael Louis Consults: 03/07/18 16:05 Consult to Physician [CONS] Stat Comment: Consulting Provider: Michael Louis Reason For Exam: Physician to Consult Consult to Physician [CONS] Stat Comment: Consulting Provider: Alley Carlisle Reason For Exam: Physician to Consult Discharging clinician: Danny Vizcarra Medical - DS: Meds - Discharge Medications Prescriptions: amLODIPine [Norvasc] 10 mg PO DAILY #30 tab Ciprofloxacin [Cipro] 250 mg PO DAILY #5 tab Sevelamer [Renvela] 800 mg PO TIDCC #90 tab Sodium Bicarbonate 650 mg PO BID #60 tab Active and Home Medications: Home Medications 5-Hydroxytryptophan (5-Htp) 100 mg PO PRN PRN 03/07/18 [History Confirmed Last Taken Unknown] Ondansetron [Zofran Odt] 8 mg PO TID PRN 03/07/18 [History Confirmed 03/07/18 Last Taken 03/06/18 08:00] Prochlorperazine Maleate [Compazine] 10 mg PO Q6H PRN 03/07/18 [History Confirmed 03/07/18 Last Taken 03/07/18 11:30] Medical - DS: Hosp Hospital course: Ms. Thompson is a 43 year old F with a history of stage IV cervical cancer with ongoing chemotherapy last session 2017. Patient has been doing well until roughly 8-10 days prior to presentation when she started experiencing progressive nausea followed by vomiting,diarrhea , loss of appetite and inability to tolerate anything by mouth. Patient's condition has continued to deteriorate to the point she has not be able to function due to fatigue. She was evaluated at [facility] today and was directed to the ER with abnormal labs. Initial workup was significant for potassium at 7 along with metabolic acidosis and creatinine of over 19. Abdominal imaging including ultrasound and CT scan showed mild hydronephrosis without any evidence of obstruction. Nephrology was consulted, pt admitted to the hospital for further management. Acute Kidney Injury: Likely secondary to post obstructive process, she had Ultrasound which showed moderate hydronehprosis. She was seen by Urology and bilateral ureteral stents were placed. Patient was followed by nephrology and urology while in the hospital. The patient presented with an elevated creat of 17.6, at the time of discharge her creat was 7.6, and trending down. The patient ua was suggestive of an UTI, strep algactate, she responded well to cipro treatment. Plan to continue same for another 5 days, dwight in light of hardware. Pt will aslo be on renvella and sodium bicarbonate at discharge HTN: BP elevated started on amlodipine 10mg qd Polyuria: Post obstructive diuresis, pt is polyuric, but able to maintain [id number] as well as good oral fluid intake, educated to continue same at discharge. Anemia: 6.3 at presentation s/p 2 units of prbc with good response, multifactorial, improving, > 10 at discharge. At the time of evaluation patient is accompanied with her Darshan. She was able to provide history as above Rest of the stay in the hospital was uneventful. Pt will be discharged home with oral antibiotics for 5 days, sodium bicarbonate, renvella, and amlodipine. She will continue her other home meds as before. Discharge diagnosis: JYOTSNA, post obstructive renal failure, hyperkalemia, uti - Time Spent with Patient Total time spent providing and/or coordinating discharge services: Greater than 30 minutes Medical - DS: Exam - Constitutional Vitals: Vital Signs Temp Pulse Resp BP BP Pulse Ox 03/12/18 07:03 98.7 F 18 139/100 98 03/12/18 04:00 98.4 F 84 16 141/91 98 03/12/18 00:00 98.7 F 93 H 16 144/88 97 03/11/18 19:11 98.0 F 82 16 164/104 100 03/11/18 16:00 97.1 F 18 177/115 99 03/11/18 12:00 97.3 F 16 165/96 100 Intake and Output 03/11/18 03/12/18 03/12/18 21:59 05:59 13:59 Intake Total 3240 / 3240 600 / 600 Output Total 2650 / 2650 1825 / 1825 700 / 700 Balance 590 / 590 -1225 / -1225 -700 / -700 Intake: Oral 3240 / 3240 600 / 600 Output: Void Amount 2650 / 2650 1825 / 1825 700 / 700 Other: Meal Dinner Percent of Meal Consumed 100% Feeding Ability Independent # Voids 1 Weight 201 lb 4.8 oz 205 lb 8 oz Additional comments: Constitutional; Afebrile, cooperative, alert, not in distress. Eyes- No icterus, , No periorbital swelling Ears- Ext ear normal, hearing normal to conversation. Neck- Midline trachea, supple Respiratory system: Air Entry equal on both sides, No crackles or wheezing, no rhonchi. CVS- Rate rhythm regular, S1,S2 heard, no gallop, no rub. 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 Medical - DS: Data Labs on day of discharge: Labs from last 24 hours 03/12/18 03/12/18 04:00 04:00 WBC 6.7 RBC 3.42 L Hgb 10.5 L Hct 30.9 L MCV 90.4 MCH 30.7 MCHC 34.0 RDW 12.9 Plt Count 137 L MPV 7.2 L Total Counted 100 Seg Neutrophils % 64 Band Neutrophils % 2 Lymphocytes % 19 Monocytes % (Manual) 13 H Eosinophils % (Manual) 1 Reactive Lymphocytes 1 Platelet Estimate Decr RBC Morphology Abnormal Ovalocytes Occ A RBC Fragments Rare A Sodium 140 Potassium 3.8 Chloride 103 Carbon Dioxide 18 L Anion Gap 19.0 H BUN 60 H Creatinine 7.6 H* GFR Calculation 6 Glucose 78 Uric Acid 4.1 Calcium 8.8 Phosphorus 5.2 H Magnesium 1.8 Total Bilirubin 0.4 Direct Bilirubin < 0.2 GGT 13 AST 8 ALT 9 Alkaline Phosphatase 54 Lactate Dehydrogenase 233 Total Protein 7.2 Albumin 4.5 Globulin 2.7 Albumin/Globulin Ratio 1.7 Triglycerides 108 Medical - DS: A/P - Patient/Caregiver Discharge Instructions Activity: increase activity as tolerated Diet: Renal Additional Instructions: Take sevalemer/ Renvella 800mg Three times a day with meals, if your insurance does not cover this medication or this is expensive, its ok to use 2 tablets of tums with each meal. You blood pressure was high, and you have been started on amlodipine 10 mg once a day. Please take this medication on a regular basis. Your regular doctor or your kidney doctor will decide if you need to continue this medication. Please follow-up with Dr. Carlisle in 1 week, she wants to do some blood work on and sunday, Dr Contreras [facility] will order these labs, please go to the lab to have your blood drawn. Follow up with Dr Branch your urologist as per his reccommendations You also had an Urinary tract infection, you need to complete the course of antibiotics for 5 more days. Please drink enough fluids to keep yourself well hydrated Go to the emergency room if worsening symptoms, fever chest pain or any other acute concerning symptom. - Follow up Plan Follow up with: Elsa Preston ARNP [Primary Care Provider] - Alley Carlisle MD [Physician] - Eric Branch MD [Physician] - Disposition: Home, Self-Care Prognosis: Fair Rehab Potential: Fair I certify that the patient requires SNF services: No Overall status at discharge: patient is progressing back to baseline Medical - DS: Qual - VTE Deep Vein Thrombosis/Pulmonary Embolism Present on Admission: No
--- NOTE | 2018-03-12 10:41 | Nephrology Progress Note ---
Subjective Patient information: Note initiated : 03/12/18 at 10:36 am Service Date, if different from initiated Date: [] Patient: Leonor Thompson 43 y/o F admitted on 03/07/18 for Nausea, Vomiting/ Renal Failure. Chief Complaint: [] Principal diagnosis: JYOTSNA Interval history: no overnight events feels good nO SOB, CP no edema eager to go home continues to have good urinary output with improving renal function Pertinent ROS: as above Objective - Vital Signs Vital signs: Vital Signs Temp Pulse Resp BP BP Pulse Ox 03/12/18 07:03 98.7 F 18 139/100 98 03/12/18 04:00 98.4 F 84 16 141/91 98 03/12/18 00:00 98.7 F 93 H 16 144/88 97 03/11/18 19:11 98.0 F 82 16 164/104 100 03/11/18 16:00 97.1 F 18 177/115 99 03/11/18 12:00 97.3 F 16 165/96 100 Intake and Output 03/11/18 03/12/18 03/12/18 21:59 05:59 13:59 Intake Total 3240 / 3240 600 / 600 Output Total 2650 / 2650 1825 / 1825 700 / 700 Balance 590 / 590 -1225 / -1225 -700 / -700 Intake: Oral 3240 / 3240 600 / 600 Output: Void Amount 2650 / 2650 1825 / 1825 700 / 700 Other: Meal Dinner Percent of Meal Consumed 100% Feeding Ability Independent # Voids 1 Weight 201 lb 4.8 oz 205 lb 8 oz Intake & Output: Intake & Output 03/11/18 03/12/18 03/12/18 21:59 05:59 13:59 Intake Total 3240 / 3240 600 / 600 Output Total 2650 / 2650 1825 / 1825 700 / 700 Balance 590 / 590 -1225 / -1225 -700 / -700 Weight 201 lb 4.8 oz 205 lb 8 oz Intake: Oral 3240 / 3240 600 / 600 Output: Void Amount 2650 / 2650 1825 / 1825 700 / 700 Other: Meal Dinner Percent of Meal Consumed 100% Feeding Ability Independent # Voids 1 - General Appearance General appearance: appears started age, obese EENT: mucous membranes moist Neck: no JVD Respiratory: clear Cardiology: no rub, regular rate, regular rhythm Gastrointestinal: no tenderness, no guarding Integumentary: warm and dry Neurologic: alert and oriented x3 Musculoskeletal: no erythema Psychiatric: mood/affect appropriate - Lab 03/12/18 04:00 03/12/18 04:00 Most recent lab results Calcium 8.8 mg/dl (8.6-10.4) 03/12/18 04:00 Phosphorus 5.2 mg/dL (2.7-4.5) H 03/12/18 04:00 Magnesium 1.8 mg/dL (1.6-2.5) 03/12/18 04:00 Assessment and Plan (1) Acute renal failure likely post obstructive renal function improving gradually, s.creat down to 7.0 mild acidosis started on sodium bicarb patient will be discharged today per her request will monitor labs closely as outpatient, repeat bmp on 03/14 and again next week on Sunday, will follow in clinic she will call me if any concerns ensure adequate hydration avoid OTC meds HTN: amlodipine dose increased, will follow and optimize monitor BP at home if possible anemia s/p PRBC transfusion, Hb stable for now metastatic stage IV cervical cancer Will follow along Thank you for giving me an opportunity to participate in Ms Thompson's medical care , appreciate it Status: Acute (2) Metabolic acidosis Status: Acute (3) Anemia Status: Acute
[2018-03-12] MEDS ORDERED: HEPARIN SODIUM,PORCINE/PF 500 UNIT/5 ML SYRINGE IV ONE (11:29)
== END 2018-03-12 13:07 | disposition home or self-care (01) | DRG 683 ==
LOC: ED 14:36 → ICU 18:29 → MEDSUR 03-11 10:06
PROVIDERS: ADMIT Internal Medicine; ATTEND Internal Medicine

== ENCOUNTER 2018-10-24 10:55 | Inpatient (IN) ==
[2018-10-24] MEDS ORDERED: 0.9 % SODIUM CHLORIDE 1,000 ML IV ONE (11:22)
[2018-10-24] MEDS ORDERED: ONDANSETRON 4 MG/2 ML VIAL IV ONE (11:22)
[2018-10-24] MEDS ORDERED: CALCIUM CHLORIDE 1,000 MG/10 ML SYRINGE IV ONE (11:24)
[2018-10-24] MEDS ORDERED: FUROSEMIDE 40 MG/4 ML VIAL IV ONE ×3 (11:24→19:31)
[2018-10-24 12:10] LABS: Basophils # (Auto) 0 K/mcL (0.0-0.3); Basophils % (Auto) 0.2 % (0.0-2.0); Eosinophils # (Auto) 0 K/mcL (0.0-0.7); Eosinophils % (Auto) 0.4 % (0.0-7.0); Granulocytes % (Auto) 82.9 % (38.0-78.0); Lymphocytes # (Auto) 0.5 K/mcL (1.5-4.8); Lymphocytes % (Auto) 6.2 % (15.5-49.0); Mean Cell Volume 88.1 fL (80.0-100.0); Mean Corpuscular HGB Conc 34.6 g/dL (31.0-36.0); Monocytes # (Auto) 0.8 K/mcL (0.1-0.9); Monocytes % (Auto) 10.3 % (1.0-12.0); Platelet Count 227 K/mcL (140-440); RBC 2.77 M/mcL (4.00-5.20); Red Cell Distribution Width 13.6 % (11.5-14.5)
[2018-10-24 12:31] LABS: ALT/SGPT 22 U/l (0-40); Albumin 3.4 gm/dL (3.2-5.2); Alkaline Phosphatase 146 U/L (39-117); Blood Urea Nitrogen 107 mg/dl (6-20); Lipase 30 U/L (7-60)
[2018-10-24] MEDS ORDERED: ALBUTEROL SULFATE 2.5 MG/3 ML NEBULIZER NEB ONE (12:32)
[2018-10-24] MEDS ORDERED: SODIUM POLYSTYRENE SULFONATE 15 GM/60 ML SUSPENSION PO ONE ×2 (12:37→18:05)
[2018-10-24] MEDS ORDERED: ACETAMINOPHEN 325 MG TABLET PO ONE (12:40)
--- NOTE | 2018-10-24 13:15 | Emergency Department Note ---
General Adult HPI - General Chief complaint: Recheck/Abnormal Lab/Rx Stated complaint: kidney problems Time Seen by Provider: 10/24/18 11:22 Source: patient Mode of arrival: ambulatory Limitations: no limitations - History of Present Illness HPI Narrative: 43-year-old female with several month history of decreased appetite and malaise. She has a history of cervical cancer that has recurrent tumor in her pelvis. She did have a hysterectomy with chemoradiation after that but last had chemo over a year ago. She is complaining of left lower quadrant pain nausea and vomiting. Nausea vomiting the last 3 days. Abdominal pain is been going on for 1-2 weeks no diarrhea. Her oncologist is Dr. Marcela Looney in [place]. Dr. Branch, urologist, but stents in for urinary obstruction and they were in place as of 10/08/2018 on his visit with her-I reviewed his note. She was initially seen over at [facility] care by Steve Reinoso. Dayana called me and gave report regarding her laboratory there. - Related Data Home Medications Medication Instructions Recorded Confirmed Acetaminophen [Pain Reliever] 500 mg PO PRN PRN 05/28/18 10/24/18 docusate sodium 100 mg capsule 100 mg PO QDAY PRN 08/06/18 10/24/18 oxycodone 10 mg tablet 10 mg PO Q4H tab 08/06/18 10/24/18 Previous Rx's Medication Instructions Recorded Promethazine [Phenergan] 25 mg PO Q6HP PRN #20 tab 08/22/18 tamsulosin 0.4 mg capsule 0.4 mg PO QDAY #30 cap 10/08/18 Allergies Allergy/AdvReac Type Severity Reaction Status Date / Time Amoxicillin Allergy Severe Anaphylaxis Verified 10/08/18 07:57 Penicillins Allergy Severe Anaphylaxis Verified 10/08/18 07:57 Review of Systems All systems ED: reviewed and negative except as stated. Past Medical History - Past Medical History Attestation: Yes: The following information was validated with the patient. 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 Conjunctive are clear sclerae nonicteric. No nasal discharge or congestion. Oropharynx pink and moist. Posterior pharynx clear. Neck is supple without lymphadenopathy thyromegaly. No carotid bruit. Heart is regular rate and rhythm no murmur appreciated. Lungs are clear to auscultation bilaterally without wheezes rales rhonchi or respiratory distress. Abdomen soft nontender nondistended except for left upper quadrant area which is mildly tender. No pedal edema. +2 radial pulse. Alert oriented able to answer questions appropriately. No dysarthria ataxia or tremor. Limitations: no limitations Course Vital Signs Temperature 97.8 F 10/24/18 10:57 Pulse Rate 92 H 10/24/18 10:57 Respiratory Rate 16 10/24/18 10:57 Blood Pressure 148/92 10/24/18 10:57 Pulse Oximetry (%) 100 10/24/18 10:57 Temperature 97.8 F 10/24/18 10:57 Pulse Rate 108 H 10/24/18 13:10 Respiratory Rate 21 10/24/18 13:10 Blood Pressure 127/89 10/24/18 13:01 Pulse Oximetry (%) 100 10/24/18 13:10 Medical Decision Making - Lab Data Lab results reviewed: Yes I reviewed the patient's lab results. Result diagrams: 10/24/18 11:30 10/24/18 11:30 Lab Results 10/24/18 10/24/18 10/24/18 Range/Units 11:30 11:30 11:30 WBC 7.6 (4.5-11.0) K/mcL RBC 2.77 L (4.00-5.20) M/mcL Hgb 8.4 L (12.0-15.0) g/dL Hct 24.4 L (36.0-48.0) % MCV 88.1 (80.0-100.0) fL MCH 30.5 (26.0-34.0) pg MCHC 34.6 (31.0-36.0) g/dL RDW 13.6 (11.5-14.5) % Plt Count 227 (140-440) K/mcL MPV 7.9 (7.4-10.4) fL Gran % 82.9 H (38.0-78.0) % Lymph % (Auto) 6.2 L (15.5-49.0) % [place] % (Auto) 10.3 (1.0-12.0) % Eos % (Auto) 0.4 (0.0-7.0) % Baso % (Auto) 0.2 (0.0-2.0) % Gran # 6.3 (1.8-8.0) K/mcL Lymph # (Auto) 0.5 L (1.5-4.8) K/mcL [place] # (Auto) 0.8 (0.1-0.9) K/mcL Eos # (Auto) 0 (0.0-0.7) K/mcL Baso # (Auto) 0 (0.0-0.3) K/mcL VBG Lactic Acid 0.7 (0.5-2.0) mmol/L Sodium 133 (133-145) mmol/L Potassium 6.4 H* (3.3-5.1) mmol/L Chloride 97 (96-108) mmol/L Carbon Dioxide 14 L (22-30) mmol/L Anion Gap 22.0 H (8-16) BUN 107 H* (6-20) mg/dl Creatinine 9.6 H* (0.6-1.1) mg/dl GFR Calculation 4 Glucose 80 (70-105) mg/dL Calcium 9.4 (8.6-10.4) mg/dl Total Bilirubin 0.2 (0.0-1.0) mg/dL AST 13 (0-37) U/l ALT 22 (0-40) U/l Alkaline Phosphatase 146 H (39-117) U/L Total Protein 6.9 (5.9-8.4) gm/dL Albumin 3.4 (3.2-5.2) gm/dL Globulin 3.5 (2.2-3.7) gm/dL Albumin/Globulin Ratio 1.0 (1.0-2.3) Lipase 30 (7-60) U/L Arterial blood gas shows pH of 7.31 PCO2 28 PO2 of 90 Urinalysis [id number]-cb-hoty dipstick shows blood and leukocytes large amount along with positive nitrites. Nursing staff reports it was like pus and viscous-sent for microscopic review and culture - Radiology Data KUB was ordered after discussion with Dr. Branch for stent placement-results are pending Renal ultrasound is ordered which shows hydronephrosis-formal read out is pending - EKG Data EKG #1 EKG attestation: Yes I reviewed and interpreted this EKG. EKG results narrative: EKG shows a rate of 92 normal sinus rhythm low voltage leads she does have peaked T waves Disposition Pt seen by BILLING ASSOCIATE/PA only: No Clinical Impression: Metabolic acidosis, History of renal stent, Hyperkalemia, Pelvic mass Kidney failure Qualifiers: Renal failure chronicity: acute on chronic Acute renal failure type: unspecified Chronic kidney disease stage: unspecified stage Qualified Code(s): N17.9 - Acute kidney failure, unspecified; N18.9 - Chronic kidney disease, unspecified Summary: Patient was found to be hyperkalemic and renal failure. EKG showed peaked T wave . we gave furosemide, calcium chloride, Kayexalate and albuterol. After getting her results back discussed them with the patient. She does require inpatient care possibly even dialysis I discussed her situation with Dr. Branch, urologist, who agreed to consult on the patient and recommended we get a KUB which is pending for making sure her stents are in the right place I also discussed her situation with Dr. Simms, endodontist on-call, who will also consult on patient I then discussed her situation with Dr. mock the hospitalist who agreed to admit patient. Disposition: Xfer As Inpt ([facility]) Condition: Fair Referrals: Elsa Preston ARNP [Primary Care Provider] -
[2018-10-24] MEDS ORDERED: CIPROFLOXACIN 400 MG/200 ML BAG IV ONE (13:24)
--- NOTE | 2018-10-24 13:44 | XRay Report ---
CLINICAL INFORMATION: renal failure, chf COMPARISON: 03/07/2018 FINDINGS: Right IJ Port-A-Cath tip overlies the SVC right atrial junction - as before. Heart size, mediastinum and pulmonary vessels are normal. There is minor bibasilar atelectasis - lungs are otherwise clear. No effusions. IMPRESSION: No evidence of CHF. Minor bibasilar atelectasis Interpreted and Authenticated by: Mark Patricia 10/24/18
[2018-10-24] MEDS ORDERED: SODIUM BICARBONATE VIAL 150 MEQ in DEXTROSE 5% IN WATER 850 ML IV SCH (13:45)
--- NOTE | 2018-10-24 13:56 | Nephrology Consult Note ---
History of Present Illness - Reason for Consult Patient information: Note initiated : 10/24/18 at 1:54 pm Patient: Leonor Thompson 43 y/o F admitted on for kidney problems. Consult date: 10/24/18 acute renal failure, hyperkalemia, metabolic acidosis Requesting physician: Danny Vizcarra - Chief Complaint Weakness - History of Present Illness Leonor Thompson is a 43 year old female with metastatic cervical cancer. She has history of acute renal failure from obstructive uropathy which improved after bilateral ureteral stents. She presented to urgent care today for progressive anorexia and weakness. She was found to have acute renal failure with hyperkalemia and metabolic acidosis. She was referred to ED after IV fluids. In ED, she had another liter NS and treatment of hyperkalemia. She was not in any acute distress. Her was in the room. Review of Systems Constitutional: anorexia, lethargy Nose, mouth and throat: no nasal congestion, no sore throat Cardiovascular: no chest pain, no palpatations Respiratory: no cough, no dyspnea Gastrointestinal: no abdominal pain, no diarrhea, no nausea Genitourinary: urinary incontinence, no hematuria Musculoskeletal: no back pain, no neck pain Integumentary: no rash, no wounds Neurological: no confusion, no focal weakness Psychiatric: no anxiety, no panic attacks Endocrine: no cold intolerance, no heat intolerance Hematologic/Lymphatic: no easy bleeding, no easy bruising Allergic/Immunologic: no tongue swelling, no uticaria Past History Past medical history: Medical History (Last Reviewed 10/08/18 @ 07:58 by Omayra Avery RN) Cervical cancer (Acute) Past surgical history: Past Surgical History (Last Reviewed 10/08/18 @ 07:58 by Omayra Avery RN) H/O: hysterectomy (Acute) History of cervical biopsy (Acute) Past family history: Family History (Last Reviewed 10/08/18 @ 07:58 by Omayra Avery RN) Other Breast cancer Cancer HTN (hypertension) Medications and Allergies Home Medications Medication Instructions Recorded Confirmed Type Acetaminophen [Pain Reliever] 500 mg PO PRN PRN 05/28/18 10/24/18 History docusate sodium 100 mg capsule 100 mg PO QDAY PRN 08/06/18 10/24/18 History oxycodone 10 mg tablet 10 mg PO Q4H tab 08/06/18 10/24/18 History Promethazine [Phenergan] 25 mg PO Q6HP PRN #20 tab 08/22/18 10/24/18 Rx tamsulosin 0.4 mg capsule 0.4 mg PO QDAY #30 cap 10/08/18 10/24/18 Rx Allergies Allergy/AdvReac Type Severity Reaction Status Date / Time Amoxicillin Allergy Severe Anaphylaxis Verified 10/08/18 07:57 Penicillins Allergy Severe Anaphylaxis Verified 10/08/18 07:57 Exam - Vital Signs Vital signs: Temp Pulse Resp BP Pulse Ox 97.8 F 114 H 20 132/78 100 10/24/18 10:57 10/24/18 13:15 10/24/18 13:15 10/24/18 13:16 10/24/18 13:15 - General Appearance General appearance: appears started age, fatigue EENT: mucous membranes dry Neck: supple Respiratory: clear Cardiology: no edema Gastrointestinal: no tenderness Integumentary: no rash, warm and dry Neurologic: no focal deficit, alert and oriented x3 Musculoskeletal: no deformities Psychiatric: mood/affect appropriate, cooperative Results - Lab Results 10/24/18 11:30 10/24/18 11:30 Most recent lab results Calcium 9.4 mg/dl (8.6-10.4) 10/24/18 11:30 Assessment and Plan (1) Acute renal failure Leonor Thompson is a 43 year old female with metastatic cervical cancer. She has history of acute renal failure from obstructive uropathy which improved after bilateral ureteral stents. She presented to urgent care today for progressive anorexia and weakness. She was found to have acute renal failure with hyperkalemia and metabolic acidosis. She was referred to ED after IV fluids and admitted. Acute kidney injury with hyperkalemia associated and metabolic acidosis, suspected intravascular volume depletion and obstructive nephropathy, present on arrival. Plan: D5W 1L + Sodium Bicarbonate 150 mEq at 150 ml/hour for hyperkalemia associated with metabolic acidosis. CT KUB and urology consultation for suspected obstructive nephropathy. Possible hemodialysis need was discussed with the patient explaining risks and benefits. She agrees to proceed if needed. She will be NPO after midnight for possible hemodialysis catheter placement. Dr. Carlisle will take over her care in am. Status: Acute Priority: High (2) Hyperkalemia Please see above Status: Acute Priority: High (3) Metabolic acidosis Please see above Status: Acute Priority: High
--- NOTE | 2018-10-24 14:08 | Cat Scan Report ---
CLINICAL INFORMATION: History cervical cancer. Bilateral ureteral stents. Now in renal failure COMPARISON: 03/07/2018 at 08/22/[address] TECHNIQUE: Oral and IV contrast were withheld. 0.625 helical slices were obtained from the mid heart to superior region of the femurs. Following reconstruction, 2.5 mm sagittal, coronal and axial reformatted or prostituted multiple windows and levels. FINDINGS: Lung bases show moderate patchy infiltrate in the posterior left lower lobe. No effusions. Mild atelectasis seen in the right lower lobe. The visualized heart is grossly normal. Images through the abdomen show the noncontrasted gallbladder and bile ducts, liver, both adrenal glands, spleen, pancreas and aorta are normal in size, configuration and attenuation without focal lesion. Images through the pelvis again show hysterectomy/oophorectomy changes. The 8 x 4 cm cavitating soft tissue mass, in the former region of the of the uterus, is unchanged from previous CT does two months ago. This may represent residual/recurrent cervical carcinoma or postsurgical fibrosis. Bilateral double-pigtail ureteral stents remain in stable, position. The proximal pigtails are within superior calyces and the distal pigtail are within the urinary bladder lumen. Moderate persistent left hydroureter/hydronephrosis is again noted. On the right side, there is new hydronephrosis/hydroureter. This suggests bilateral ureteral stent occlusion. Small amount of gas is seen nondependently in the urinary bladder may represent recent attempted Ellis catheterization. A fistula between the bowel and urinary bladder is not excluded based on this study without oral or IV contrast. A ventral hernia decrease in size spanning only 4 cm contains a segment of nonincarcerated. Small bowel and moderate edema in the hernia sac. Bone windows only L5-S1 laminectomy changes IMPRESSION: 1. Hysterectomy oophorectomy changes. An 8 x 4 cm soft tissue mass, in the former region of the uterus, is unchanged from the most recent CT. It encases and narrows the distal ureters. It is unclear whether this represents recurrent or residual cervical malignancy or merely postsurgical fibrosis. 2. Bilateral ureteral stents in satisfactory position. There is persistent moderate left hydroureter/hydronephrosis and new moderate right hydroureter hydronephrosis. Findings compatible with bilateral ureteral stent occlusion resulting in obstructive uropathy and renal failure. Suggest urology referral for ureteral stent replacement 3. Small amount of gas in the urinary bladder may be related recent Ellis placement. If this has not been performed, then the possibility of enterovesical fistula or lower urinary tract infection with gas-forming organism should be entertained 4. Decreased ventral hernia now spanning only 4 cm and contains a short segment nonincarcerated small bowel Interpreted and Authenticated by: Mark Patricia 10/24/18
--- NOTE | 2018-10-24 14:13 | Internal Med History&Physical ---
Medical - H&P: HPI Patient information: Note initiated : 10/24/18 at 2:08 pm Service Date, if different from initiated Date: [] Patient: Leonor Thompson a 43 y/o F admitted on for kidney problems. Chief Complaint: [] History of present illness: Ms. Thompson is a 43 year old F with history of metastatic cervical cancer, presently not pursuing treatment presents to the emergency room for evaluation of abnormal labs. This is a pleasant 43-year-old female who was admitted to this facility a few months ago and was diagnosed with postobstructive renal failure. At that point in time stents were placed and the kidney function improved but was never normal. She has been followed by Dr. Branch and Dr. Clemens in the clinic. For the last few months the patient has reported that she has had no good appetite, she has been taking some milk and some clementines. Over the last 2- 3 days her condition worsened significantly and she felt weak fatigued and tired cold. She went to see urgent care physician at [facility] today and blood work showed worsening renal function and she was asked to come to the hospital for further management. The patient denies any headache changes in vision difficulty in swallowing, admits to some nausea and decreased appetite denies any cough chest pain shortness of breath but is fatigued on ambulation. She has abdominal pain that was also concerning in the left lower quadrant that started a few days ago which also contributed her going to the urgent care center today. The patient is incontinent to urine. The pain in the abdomen is worse with movement better with rest and some pain meds. She denies any blood in the stools denies any new joint pains or skin rashes. In the emergency room on presentation patient was afebrile temperature 97.8 heart rate 92 blood pressure 148 x 92 saturating 100% on room air. Labs show hemoglobin of 8.4 WBC 7.6 lactic acid 0.7 platelets 227. Sodium 133 potassium 6.4 bicarbonate 14 chloride 97 BUN 107 creatinine 9.6 glucose 80 Urine dip positive for nitrite and leukocyte esterase. ABG shows pH of 7.31 PCO2 628 PO2 90 on room air Patient had a renal ultrasound, KUB CT done. Nephrology and neurology have been consulted. EKG shows sinus tachycardia with low voltage chest x-ray shows no acute infiltrates. Patient is being admitted to the hospital for further management, patient wishes DNR status All systems: reviewed and no additional remarkable complaints except as stated ( as per hpi rest negative) Medical - H&P: PMH Medical history: Medical History (Last Reviewed 10/08/18 @ 07:58 by Omayra Avery RN) Cervical cancer (Acute) Obesity Surgical history: Past Surgical History (Last Reviewed 10/08/18 @ 07:58 by Omayra Avery RN) H/O: hysterectomy (Acute) History of cervical biopsy (Acute) Pertinent family history: Family History (Last Reviewed 10/08/18 @ 07:58 by Omayra Avery RN) Other Breast cancer Cancer HTN (hypertension) Medical - H&P: Meds Home Medications Medication Instructions Recorded Confirmed Type Acetaminophen [Pain Reliever] 500 mg PO PRN PRN 05/28/18 10/24/18 History docusate sodium 100 mg capsule 100 mg PO QDAY PRN 08/06/18 10/24/18 History oxycodone 10 mg tablet 10 mg PO Q4H tab 08/06/18 10/24/18 History Promethazine [Phenergan] 25 mg PO Q6HP PRN #20 tab 08/22/18 10/24/18 Rx tamsulosin 0.4 mg capsule 0.4 mg PO QDAY #30 cap 10/08/18 10/24/18 Rx Allergies Allergy/AdvReac Type Severity Reaction Status Date / Time Amoxicillin Allergy Severe Anaphylaxis Verified 10/08/18 07:57 Penicillins Allergy Severe Anaphylaxis Verified 10/08/18 07:57 Medical - H&P: Exam - Constitutional Vitals: Temp Pulse Resp BP Pulse Ox 97.8 F 114 H 20 132/78 100 10/24/18 10:57 10/24/18 13:15 10/24/18 13:15 10/24/18 13:16 10/24/18 13:15 Exam: GENERAL: The patient is a well-developed, well-nourished in no apparent distress. Is alert and oriented x3. VITAL SIGNS: Reviewed and as noted elsewhere. HEENT: Head is normocephalic and atraumatic. Extraocular muscles are intact. Pupils are equal, round, and reactive to light. Nares appeared normal. Mouth appears any without lesions. Mucous membranes are moist. NECK: Normal to inspection, Supple, No lymphadenopathy or thyromegaly. LUNGS: Air entry equal on both sides, no wheezing, crackles or rhonchi noted. No accessory muscles of respiration HEART: Regular rate and rhythm normal, S1 and S2 heard, no Gallop, S3 or Rub Noted, No Gross murmur heard. ABDOMEN: Soft, left mid lower quadrant tenderness , and nondistended. Positive bowel sounds. No hepatosplenomegaly was noted. EXTREMITIES: No cyanosis, clubbing, rash, lesions or edema. NEUROLOGIC: Cranial nerves II through XII are grossly intact. Motor and Sensory System Grossly Intact PSYCHIATRIC: Normal affect, Normal Mood. Appropriate Behavior. SKIN: No ulceration or wounds noted, No jaundice, No rash noted. Medical - H&P: Reslt - Labs CBC & Chem 7: 10/24/18 11:30 10/24/18 11:30 Labs: Short CBC 10/24/18 Range/Units 11:30 WBC 7.6 (4.5-11.0) K/mcL Hgb 8.4 L (12.0-15.0) g/dL Hct 24.4 L (36.0-48.0) % Plt Count 227 (140-440) K/mcL [facility] 10/24/18 11:30 Sodium 133 Potassium 6.4 H* Chloride 97 Carbon Dioxide 14 L BUN 107 H* Creatinine 9.6 H* Glucose 80 Calcium 9.4 Liver Function 10/24/18 Range/Units 11:30 Total Bilirubin 0.2 (0.0-1.0) mg/dL AST 13 (0-37) U/l ALT 22 (0-40) U/l Alkaline Phosphatase 146 H (39-117) U/L Albumin 3.4 (3.2-5.2) gm/dL Medical - H&P: A/P - Narrative A/P Narrative: A/P Acute on Chronic Renal failure Metabolic Acidosis , NAGMA and HGAMA (due to renal failure) Urinary tract infection Anemia of chr disease Hyperkalemia Plan Admit to pcu status Pt is willing to consider HD if needed Dr Branch to evaluate patient and determine if stent exchange/percutaneous nephrostomy tubes is needed. Medically manage Hyperkalemia for now IV bicarb drip trend potassium DVT SCD Diet renal NPO MN DNR code status. Social History - Tobacco smoking status: Never smoker - Alcohol alcohol intake frequency: does not drink - Substance use substance use type: does not use
--- NOTE | 2018-10-24 14:49 | Ultrasound Report ---
CLINICAL INFORMATION: Acute postobstructive renal failure. History of bilateral ureteral stents for bilateral ureter obstruction due to posttreatment fibrosis and/or residual cervical malignancy. COMPARISON: Abdomen and pelvic CT 08/22/2018 FINDINGS: Both kidneys are normal in size, position, configuration and echotexture: The right is 11 x 5 cm and the left is 12 x 5 cm. moderate bilateral hydronephrosis appreciated. Stents are seen in both upper collecting systems. No focal renal lesions. Urinary bladder contains only a small amount of urine. Posterior to the bladder, there is a 5 x 5 cm heterogeneous mass with increased arterial vascularity and irregular margins. IMPRESSION: 1. Moderate bilateral hydronephrosis compatible with bilateral ureteral stent occlusion. This will require urologic replacement. 2. 5 x 5 cm hypoechoic vascular mass, posterior to the urinary bladder, in the former region of the uterus and cervix. Residual malignancy versus inflammation/fibrosis. Consider: Biopsy via endovaginal cuff by COLORMAN. If this cannot technically be performed then a transgluteal CT-guided biopsy of this region could be performed. Interpreted and Authenticated by: Mark Patricia 10/24/18
[2018-10-24] MEDS ORDERED: ACETAMINOPHEN 325 MG TABLET PO PRN (15:20)
[2018-10-24] MEDS ORDERED: NALOXONE HCL 0.4 MG/ML VIAL IV PRN (15:20)
[2018-10-24] MEDS ORDERED: PROMETHAZINE 25 MG/ML VIAL IV PRN (15:20)
[2018-10-24] MEDS: PANTOPRAZOLE 40 MG TABLET PO SCH (15:41)
[2018-10-24] MEDS: 0.9 % SODIUM CHLORIDE 10 ML SYRINGE IV SCH ×4 (15:45→21:29)
[2018-10-24] MEDS: SODIUM BICARBONATE VIAL 150 MEQ in DEXTROSE 5% IN WATER 850 ML IV SCH ×2 (15:55→23:00)
--- NOTE | 2018-10-24 15:58 | Consultation ---
DATE OF CONSULTATION: 10/24/2018 REQUESTING PHYSICIAN: Danny Vizcarra M.D. HISTORY OF PRESENT ILLNESS: The patient is a 43-year-old lady with metastatic cervical cancer. Previously she had obstructed both ureters and stents were placed. Her creatinine decreased but recently has been having some nausea, not feeling well, and was seen in the emergency room today. At that time her creatinine was up to 6.4. Her ultrasound does show questionable hydronephrosis on the right side but continued hydronephrosis on the left. The stents were in good position by KUB. I have been asked to evaluate her for possible stent change. She does complain of some nausea, abdominal pain in the left lower quadrant. The patient is incontinent of urine. She denies any blood in her stool. She presents now for evaluation. PAST MEDICAL HISTORY: Significant for cervical cancer with radiation and surgery. PAST SURGICAL HISTORY: Hysterectomy, cervical biopsy. ALLERGIES: 1. AMOXICILLIN. 2. PENICILLIN. FAMILY HISTORY: Noncontributory. SOCIAL HISTORY: She is . CURRENT MEDICATIONS: 1. Acetaminophen. 2. Oxycodone. 3. Promethazine. 4. Also Flomax which she does not feel like it helps. PHYSICAL EXAMINATION: GENERAL: This is a very pleasant lady in no apparent distress. VITAL SIGNS: As listed elsewhere. HEENT: Atraumatic, normocephalic. Extraocular movements are intact. Pupils equal, reactive to light and accommodation. NECK: Supple. Trachea is in the midline. HEART: Regular rate and rhythm. LUNGS: Clear to auscultation. ABDOMEN: Soft, nontender except in the left lower quadrant, nondistended. GENITOURINARY: Normal female anatomy, well-estrogenized meatus in its proper position, status post hysterectomy. EXTREMITIES: Without clubbing, cyanosis or edema. NEUROLOGIC: Cranial nerves are grossly intact. No lesions. LABORATORY DATA: Labs as listed per Dr. Vizcarra's note. IMPRESSION: The patient with what may be ureteral obstruction. She does have worsening BUN and creatinine. I have talked to Dr. Vizcarra about this and would have them stabilize her potassium and then take her to surgery for stent change tomorrow. The patient does agree to this plan. I have gone over the complications including bleeding, infection, pain, non-cure of the problem and she understands. We will follow up at the time of surgery. JEANNINE:suzanne Job ID: [id number] Doc ID: [id number] Eric Branch MD
[2018-10-24] MEDS: ONDANSETRON 4 MG/2 ML VIAL IV PRN (16:24)
[2018-10-24] MEDS: HYDROmorphone 2 MG/ML VIAL IV PRN ×3 (16:28→23:57)
[2018-10-24 17:32] LABS: Blood Urea Nitrogen 105 mg/dl (6-20)
[2018-10-24 18:03] LABS: Appearance,Urine TURBID; Bacteria,Urine 0 /hpf (0); Bilirubin,Urine NEG (NEG); Calcium Oxalate Crystals,Urine MANY /hpf (0); Color,Urine YELLOW; Glucose,Urine (UA) NEGATIVE (NEG); Leukocyte Esterase,Urine 75 /uL (NEG); Mucus,Urine MANY /hpf (0); Protein,Urine 100 mg/dL (NEG); Specific Gravity,Urine 1.015 (1.000-1.035); Urine Amorphous Crystals MANY /hpf (0); Urine Blood >=1.0 mg/dL (<0.03); Urine RBC > 182 /hpf (0-1); Urine Squamous Epithelial Cell 9 /hpf (0-4); Urine WBC > 182 /hpf (0-4); Urobilinogen,Urine NEG (NEG)
[2018-10-24] MEDS ORDERED: DEXTROSE 50% 50 ML VIAL IV ONE (18:06)
[2018-10-24] MEDS ORDERED: INSULIN REGULAR, HUMAN 1 UNIT/0.01 ML UNIT IV ONE (18:06)
[2018-10-24] MEDS ORDERED: DOCUSATE SODIUM 100 MG CAPSULE PO PRN (18:26)
[2018-10-24] MEDS ORDERED: OXYCODONE HCL 10 MG PO SCH (18:30)
[2018-10-24] MEDS ORDERED: oxyCODONE HCL 5 MG TABLET PO PRN (22:00)
[2018-10-24 23:03] LABS: Blood Urea Nitrogen 105 mg/dl (6-20)
[2018-10-25] MEDS: ONDANSETRON 4 MG/2 ML VIAL IV PRN ×2 (00:16→06:33)
[2018-10-25] MEDS: HYDROmorphone 2 MG/ML VIAL IV PRN ×5 (04:14→21:44)
[2018-10-25 05:52] LABS: Basophils # (Auto) 0 K/mcL (0.0-0.3); Basophils % (Auto) 0.3 % (0.0-2.0); Eosinophils # (Auto) 0.1 K/mcL (0.0-0.7); Eosinophils % (Auto) 1.8 % (0.0-7.0); Granulocytes % (Auto) 75.3 % (38.0-78.0); Lymphocytes # (Auto) 0.5 K/mcL (1.5-4.8); Mean Cell Volume 88.8 fL (80.0-100.0); Mean Corpuscular HGB Conc 33.7 g/dL (31.0-36.0); Monocytes # (Auto) 0.8 K/mcL (0.1-0.9); Monocytes % (Auto) 13.6 % (1.0-12.0); Platelet Count 171 K/mcL (140-440); RBC 2.41 M/mcL (4.00-5.20)
[2018-10-25] MEDS: SODIUM BICARBONATE VIAL 150 MEQ in DEXTROSE 5% IN WATER 850 ML IV SCH (05:54)
[2018-10-25] MEDS: 0.9 % SODIUM CHLORIDE 10 ML SYRINGE IV SCH ×12 (05:54→21:48)
[2018-10-25 07:13] LABS: ALT/SGPT 22 U/l (0-40); Albumin 2.8 gm/dL (3.2-5.2); Albumin/Globulin Ratio 0.9 (1.0-2.3); Alkaline Phosphatase 131 U/L (39-117); Bilirubin,Direct < 0.2 mg/dL (0.0-0.3); Blood Urea Nitrogen 101 mg/dl (6-20); Gamma Glutamyl Transpeptidase 91 U/L (5-36)
[2018-10-25] MEDS ORDERED: PANTOPRAZOLE 40 MG VIAL IV SCH (07:30)
[2018-10-25] MEDS: PANTOPRAZOLE 40 MG TABLET PO SCH (08:11)
[2018-10-25] MEDS ORDERED: TAMSULOSIN 0.4 MG CAPSULE PO SCH (09:00)
[2018-10-25] MEDS ORDERED: CIPROFLOXACIN 400 MG/200 ML BAG IV SCH (09:00)
[2018-10-25] MEDS ORDERED: AZTREONAM 1 GM VIAL IV SCH (10:30)
[2018-10-25] MEDS ORDERED: ERTAPENEM 1 GM VIAL IV ONE (11:00)
[2018-10-25] MEDS ORDERED: ERTAPENEM 0.5 GM in 0.9 % SODIUM CHLORIDE 50 ML IV SCH (11:00)
[2018-10-25] MEDS ORDERED: ONDANSETRON 4 MG/2 ML VIAL IV PRN ×2 (11:48→14:39)
[2018-10-25] MEDS ORDERED: HYDROmorphone 2 MG/ML VIAL IV PRN (11:48)
[2018-10-25] MEDS ORDERED: MEPERIDINE 25 MG/ML SYRINGE IV PRN (11:48)
[2018-10-25] MEDS ORDERED: LACTATED RINGERS 250 ML IV PRN (11:48)
[2018-10-25] MEDS ORDERED: fentaNYL 100 MCG/2 ML VIAL IV PRN (11:48)
[2018-10-25] MEDS ORDERED: diphenhydrAMINE 50 MG/ML VIAL IV PRN (11:48)
[2018-10-25] MEDS ORDERED: IPRATROPIUM/ALBUTEROL 3 ML AMPUL.NEB NEB PRN (11:48)
[2018-10-25] MEDS ORDERED: FLUMAZENIL 0.1 MG/ML ML IV PRN (11:48)
[2018-10-25] MEDS ORDERED: BENZOCAINE/MENTHOL 1 LOZENGE PO PRN (11:48)
[2018-10-25] MEDS ORDERED: PROMETHAZINE 25 MG/ML VIAL IV PRN ×2 (11:48→14:39)
[2018-10-25] MEDS ORDERED: NALOXONE HCL 0.4 MG/ML VIAL IV PRN ×2 (11:48→14:39)
[2018-10-25] MEDS ORDERED: ONDANSETRON 4 MG/2 ML VIAL IV ONE (12:00)
[2018-10-25] MEDS ORDERED: fentaNYL 100 MCG/2 ML VIAL IV ONE (12:00)
[2018-10-25] MEDS ORDERED: LIDOCAINE HCL/PF 100 MG/5 ML SYRINGE IV ONE (12:00)
[2018-10-25] MEDS ORDERED: MIDAZOLAM 5 MG/5 ML VIAL IV ONE (12:00)
[2018-10-25] MEDS ORDERED: DEXAMETHASONE 10 MG/ML VIAL IV ONE (12:00)
[2018-10-25] MEDS ORDERED: PROPOFOL 200 MG/20 ML VIAL IV ONE (12:00)
[2018-10-25] MEDS ORDERED: LACTATED RINGERS 1,000 ML IV SCH (12:00)
[2018-10-25] MEDS ORDERED: IOPAMIDOL 100 ML BOTTLE IJ ONE (12:05)
--- NOTE | 2018-10-25 12:37 | Brief Operative Note ---
Date of procedure: 10/25/18 Pre-op diagnosis: renal failure Post-op diagnosis: same Procedure: bilateral stent change Grafts/Implants: Yes (bilateral ureteral stents) Anesthesia: regional Findings: see note Complications: none Surgeon: Eric Branch Specimens Removed/Pathology: none sent Condition: stable Disposition: PACU
--- NOTE | 2018-10-25 12:54 | Operative Note ---
DATE OF OPERATION: 10/25/2018 PREOPERATIVE DIAGNOSIS: Bilateral hydronephrosis. POSTOPERATIVE DIAGNOSIS: Bilateral hydronephrosis. PROCEDURE: Bilateral stent change. SURGEON: Eric Branch M.D. INDICATION: The patient is a 43-year-old lady with metastatic cervical cancer. She has had worsening renal function and ultrasound shows bilateral hydronephrosis. There is a question if the stents are obstructed, which she had previously placed, and she presents now for stent change. PROCEDURE: The patient was identified and consent was signed. She was given general anesthesia, placed in lithotomy position, prepped and draped in a standard fashion. Cystourethroscopy showed normal-appearing urethra. At the orifices there was recurrent tumor with exophytic masses. We were able to grasp the stent on the right and place a wire up into the kidney. Retrograde pyelogram was obtained which showed good placement in the kidney. The wire was then re-placed and a 7 x 24 stent was placed without any difficulty. This showed a good curl in the kidney and the bladder. We then turned our attention to the left side. Again, the stent was grasped, wire was placed, and retrograde pyelogram was obtained which showed good placement in the kidney. The wire was re-placed. A 6 x 24 stent was placed. The strings were not left attached. The fluoroscopy showed good curl in both the kidneys and the bladder. A 16-Sami Ellis catheter was placed and this drained clear urine. The patient was awoken and taken to recovery room in stable condition. She tolerated the procedure well. RZ:suzanne Job ID: [id number] Doc ID: [id number] Eric Branch MD
--- NOTE | 2018-10-25 13:05 | Internal Med Progress Note ---
Medical - PN: Subj Patient information: Note initiated : 10/25/18 at 1:02 pm Service Date, if different from initiated Date: [] Patient: Leonor Thompson a 43 y/o F admitted on 10/24/18 for kidney problems. Chief Complaint: [] Interval history: Ms. Thompson is a 43 year old F with history of metastatic cervical cancer, presently not pursuing treatment presents to the emergency room for evaluation of abnormal labs. This is a pleasant 43-year-old female who was admitted to this facility a few months ago and was diagnosed with postobstructive renal failure. At that point in time stents were placed and the kidney function improved but was never normal. She has been followed by Dr. Branch and Dr. Clemens in the clinic. For the last few months the patient has reported that she has had no good appetite, she has been taking some milk and some clementines. Over the last 2- 3 days her condition worsened significantly and she felt weak fatigued and tired cold. She went to see urgent care physician at [facility] today and blood work showed worsening renal function and she was asked to come to the hospital for further management. The patient denies any headache changes in vision difficulty in swallowing, admits to some nausea and decreased appetite denies any cough chest pain shortness of breath but is fatigued on ambulation. She has abdominal pain that was also concerning in the left lower quadrant that started a few days ago which also contributed her going to the urgent care center today. The patient is incontinent to urine. The pain in the abdomen is worse with movement better with rest and some pain meds. She denies any blood in the stools denies any new joint pains or skin rashes. In the emergency room on presentation patient was afebrile temperature 97.8 heart rate 92 blood pressure 148 x 92 saturating 100% on room air. Labs show hemoglobin of 8.4 WBC 7.6 lactic acid 0.7 platelets 227. Sodium 133 potassium 6.4 bicarbonate 14 chloride 97 BUN 107 creatinine 9.6 glucose 80 Urine dip positive for nitrite and leukocyte esterase. ABG shows pH of 7.31 PCO2 628 PO2 90 on room air Patient had a renal ultrasound, KUB CT done. Nephrology and neurology have been consulted. EKG shows sinus tachycardia with low voltage chest x-ray shows no acute infiltrates. Patient is being admitted to the hospital for further management, patient wishes DNR status 10/25 Patient seen and examined, overnight had significant nausea and vomiting. She also had some diarrhea due to Kayexalate. Blood cultures positive aerobic and anaerobic bottle gram variable bacteria at this time IV vancomycin and IV ertapenum ordered. Pt has h/o allergy to penicillin, test dose of ertapenum 0.1ml ID given, in 20-30 mins, no itching, ho increased size of the wheal noted. I believe she should be able to tolerate this medication well d/c cipro Stents exchanged by Dr Branch. Renal function still abnormal, but potassium is better d/c bicarb drip. Pertinent ROS: Denies headache, dizziness Denies chest pain, palpitations Denies cough or shortness of breath present abdominal pain and nausea and vomiting. - Constitutional Vitals: Vital Signs Temp Pulse Resp BP Pulse Ox 98.2 F 78 18 115/71 95 10/25/18 12:38 10/25/18 12:53 10/25/18 12:53 10/25/18 12:53 10/25/18 12:53 Period Temp Pulse Resp BP Sys/Harris Pulse Ox Last 24 Hr 98.0 F-101.4 F 70-114 0-29 101-137/61-110 92-100 Intake and Output 10/24/18 10/25/18 10/25/18 21:59 05:59 13:59 Intake Total 1470 / 1470 1999 1042 / 1042 Output Total 861 / 861 1020 / 1020 390 / 390 Balance 609 / 609 980 / 980 652 / 652 Weight 175 lb 4.8 oz 175 lb 4.8 oz Patient Weight 10/26/18 05:59 Weight 175 lb 4.8 oz Intake & Output: Intake & Output 10/24/18 10/25/18 10/25/18 21:59 05:59 13:59 Intake Total 1470 / 1470 1999 1042 / 1042 Output Total 861 / 861 1020 / 1020 390 / 390 Balance 609 / 609 980 / 980 652 / 652 Weight 175 lb 4.8 oz 175 lb 4.8 oz Intake: IV 1200 / 1200 1999 542 / 542 Sodium Chloride 0.9% 1,000 ml @ 1000 / 1000 Wide Open IV [facility] Rx#: [id number] Sodium Bicarbonate Vial 150 Meq 1999 342 / 342 In Dextrose 5% in Water 850 ml @ 150 mls/hr IV Q6H [facility] Rx#: [id number] Oral 270 / 270 IV - Manual Only 500 / 500 Output: Urine Catheter Amount 260 / 260 1020 / 1020 390 / 390 # of times incontinent of urine Emesis 600 / 600 Other: Meal Dinner Percent of Meal Consumed Bites Feeding Ability Independent Urine Appearance Cloudy Cloudy Clear Uretheral (Ellis) Cloudy Clear Urine Color Blood Tinged Blood Tinged Bright Yellow Uretheral (Ellis) Blood Tinged Blood Tinged Stool Size Moderate Stool Color Brown Stool Consistency Liquid # Bowel Movements 1 1 # of times incontinent of 1 1 Bowels Exam: Constitutional; Afebrile, cooperative, alert, not in distress. Eyes- No icterus, , No periorbital swelling Ears- Ext ear normal, hearing normal to conversation. Neck- Midline trachea, supple Respiratory system: Air Entry equal on both sides, No crackles or wheezing, no rhonchi. CVS- Rate rhythm regular, S1,S2 heard, no gallop, no rub. Abdomen- Soft tender left lower quadrant, bowel tones present. CLIENT SERVER PROGRAMMER- AOOx3, moving all extremities, no gross focal deficit noted. Medical - PN: Obj Da - Labs CBC & Chem 7: 10/25/18 04:00 10/25/18 04:00 Labs: Abnormal Lab Results 10/25/18 10/25/18 10/25/18 06:47 04:00 04:00 RBC 2.41 L Hgb 7.2 L Hct 21.4 L Gran % Lymph % (Auto) 9.0 L Valencia % (Auto) 13.6 H Lymph # (Auto) 0.5 L PT 15.9 H INR 1.3 H Sodium Potassium Chloride Carbon Dioxide Anion Gap 19.0 H BUN 101 H* Creatinine 9.0 H* Glucose 112 H Uric Acid 9.0 H Phosphorus 6.1 H* GGT 91 H Alkaline Phosphatase 131 H Albumin 2.8 L Albumin/Globulin Ratio 0.9 L Urine Protein Urine Occult Blood Ur Leukocyte Esterase Urine RBC Urine WBC Ur Squamous Epith Cells Calcium Oxalate Crystal Amorphous Crystals Urine Mucus 10/24/18 10/24/18 10/24/18 22:00 17:00 16:00 RBC Hgb Hct Gran % Lymph % (Auto) Valencia % (Auto) Lymph # (Auto) PT INR Sodium 132 L Potassium 5.2 H 5.6 H Chloride 94 L Carbon Dioxide 21 L 15 L Anion Gap 17.0 H 19.0 H BUN 105 H* 105 H* Creatinine 9.2 H* 9.3 H* Glucose 157 H Uric Acid Phosphorus GGT Alkaline Phosphatase Albumin Albumin/Globulin Ratio Urine Protein 100 A Urine Occult Blood >=1.0 A Ur Leukocyte Esterase 75 A Urine RBC > 182 H Urine WBC > 182 H Ur Squamous Epith Cells 9 H Calcium Oxalate Crystal Many A Amorphous Crystals Many A Urine Mucus Many A 10/24/18 10/24/18 11:30 11:30 RBC 2.77 L Hgb 8.4 L Hct 24.4 L Gran % 82.9 H Lymph % (Auto) 6.2 L Valencia % (Auto) Lymph # (Auto) 0.5 L PT INR Sodium Potassium 6.4 H* Chloride Carbon Dioxide 14 L Anion Gap 22.0 H BUN 107 H* Creatinine 9.6 H* Glucose Uric Acid Phosphorus GGT Alkaline Phosphatase 146 H Albumin Albumin/Globulin Ratio Urine Protein Urine Occult Blood Ur Leukocyte Esterase Urine RBC Urine WBC Ur Squamous Epith Cells Calcium Oxalate Crystal Amorphous Crystals Urine Mucus Meds: Medications Acetaminophen (Tylenol) 650 mg PO Q4-6HP PRN PRN Reason: PAIN/FEVER > 101 Albuterol/Ipratropium (Duoneb) 3 ml NEB ONCE PRN PRN Reason: Wheezing Stop: 10/25/18 13:48 Diphenhydramine HCl (Benadryl) 25 mg IV ONCE PRN PRN Reason: ITCH Stop: 10/25/18 13:48 Docusate Sodium (Colace) 100 mg PO QDAY PRN PRN Reason: Constipation Fentanyl (Sublimaze) 25 mcg IV Q2M PRN PRN Reason: Pain Stop: 10/25/18 13:48 Flumazenil (Romazicon) 0.1 mg IV Q2MIN PRN PRN Reason: BENZODIAZEPINE REVERSAL Stop: 10/25/18 13:48 Hydromorphone HCl (Dilaudid) 0.5 mg IV Q2HP PRN PRN Reason: PAIN LEVEL > 6 Last Admin: 10/25/18 06:55 Dose: 0.5 mg Hydromorphone HCl (Dilaudid) 0.5 mg IV Q15MIN PRN PRN Reason: PAIN LEVEL > 6 Ertapenem 0.5 gm/ Sodium (Chloride) 50 mls @ 100 mls/hr IV Q24H [facility] Lactated Ringer's (Lactated Ringers) 1,000 mls @ 0 mls/hr IV PRN PRN PRN Reason: Hypovolemia Stop: 10/25/18 13:48 Lactated Ringer's (Lactated Ringers) 1,000 mls @ 20 mls/hr IV .Q24H [facility] Stop: 10/25/18 13:48 Last Admin: 10/25/18 12:47 Dose: 20 mls/hr Meperidine HCl (Demerol) 12.5 mg IV Q5M PRN PRN Reason: Shivering Stop: 10/25/18 13:48 Naloxone HCl (Narcan) 0.1 mg IV Q2MIN PRN PRN Reason: Opiate Reversal Naloxone HCl (Narcan) 0.1 mg IV Q2MIN PRN PRN Reason: Opiate Reversal Stop: 10/25/18 13:48 Ondansetron HCl (Zofran) 4 mg IV Q4-6HP PRN PRN Reason: Nausea And Vomiting Last Admin: 10/25/18 06:33 Dose: 4 mg Ondansetron HCl (Zofran) 4 mg IV ONCE PRN PRN Reason: Nausea And Vomiting Stop: 10/25/18 13:48 Oxycodone HCl (Roxicodone) 10 mg PO Q4HP PRN PRN Reason: Pain Pantoprazole Sodium (Protonix) 40 mg IV BIDAC [facility] Last Admin: 10/25/18 10:50 Dose: 40 mg Promethazine HCl (Phenergan) 12.5 mg IV Q4-6HP PRN PRN Reason: Nausea And Vomiting Promethazine HCl (Phenergan) 6.25 mg IV Q15M PRN PRN Reason: Nausea And Vomiting Stop: 10/25/18 13:48 Sodium Chloride (Saline Flush) 10 ml IV Q8 [facility] Last Admin: 10/25/18 10:50 Dose: 10 ml Tamsulosin HCl (Flomax) 0.4 mg PO QDAY [facility] Last Admin: 10/25/18 09:22 Dose: Not Given Throat Lozenges (Cepacol) 1 lozenge PO PRN PRN PRN Reason: Sore Throat Stop: 10/25/18 13:49 Medical - PN: A/P - Time Spent With Patient Total time spent is greater than 50% in coordination of care (as documented) at patient's floor/unit and/or counseling patient: - Narrative A/P Narrative: A/P Acute on Chronic Renal failure Metabolic Acidosis , NAGMA and HGAMA (due to renal failure) Urinary tract infection Anemia of chr disease Hyperkalemia (resolved) Bacteremia Sepsis Plan Continue monitoring PCU, d/c Cipro, start on IV ertapenem and vanco (no reaction to test dose of ertapenum) Pt is willing to consider HD if needed Dr Branch to evaluate patient and stent exchanged done. Hyperkalemia resolved d/c bicarb drip. Hb trending down, if drops less than 7 will transfuse. Nehprology following Will consider CT Abdomen with oral and IV contrast if goes on HD to evaluate the malignancy further. DVT SCD Diet renal NPO MN DNR code status. Medical - PN: Qual - VTE Deep Vein Thrombosis/Pulmonary Embolism Present on Admission: No
[2018-10-25] MEDS ORDERED: ACETAMINOPHEN 325 MG TABLET PO PRN (14:39)
[2018-10-25] MEDS ORDERED: DOCUSATE SODIUM 100 MG CAPSULE PO PRN (14:39)
[2018-10-25] MEDS ORDERED: oxyCODONE HCL 5 MG TABLET PO PRN (14:39)
--- NOTE | 2018-10-25 14:40 | Nephrology Progress Note ---
Subjective Patient information: Note initiated : 10/25/18 at 2:38 pm Service Date, if different from initiated Date: [] Patient: Leonor Thompson 43 y/o F admitted on 10/24/18 for kidney problems. Chief Complaint: [] Principal diagnosis: acute renal failure Interval history: Patient admitted yesterday with acute renal failure, metabolic acidosis and hyperkalemia. She was found to have bilateral hydronephrosis. She has metastatic cervical cancer and she is not on any chemotherapy as states was told her disease will not cure She is s/p stent placement today Her hyperkalemia and acidosis has improved with medical management she has persistent nausea, this is better when seen in afternoon she denies SOB, CP no edema her diarrhea was sec to kayexalate and this has improved no issues with mental status reported pain control fair Pertinent ROS: as above Objective - Vital Signs Vital signs: Vital Signs Temp Pulse Pulse Resp BP BP BP 10/25/18 14:16 87 107/77 10/25/18 14:01 78 18 137/72 10/25/18 13:46 21 134/76 10/25/18 13:31 98.3 F 20 134/87 10/25/18 13:15 98.3 F 73 16 132/71 10/25/18 13:07 74 18 118/74 10/25/18 12:53 78 18 115/71 10/25/18 12:48 88 13 114/68 10/25/18 12:43 89 16 111/65 10/25/18 12:38 98.2 F 87 19 106/61 10/25/18 11:37 101.0 F H 18 10/25/18 11:36 101.0 F H 29 H 10/25/18 11:01 77 0 L 123/75 10/25/18 10:03 86 21 126/110 10/25/18 09:01 85 22 137/84 10/25/18 08:01 91 H 17 127/85 10/25/18 07:01 99.7 F H 100 H 21 130/88 10/25/18 07:00 10/25/18 06:01 98.0 F 79 23 H 129/85 10/25/18 06:00 83 22 10/25/18 05:01 73 20 122/84 10/25/18 04:25 73 19 10/25/18 04:01 98.8 F 79 21 135/85 10/25/18 03:08 79 21 10/25/18 02:02 79 10/25/18 02:01 98.6 F 79 123/84 10/25/18 02:00 10/25/18 01:06 89 21 10/25/18 01:01 75 18 110/78 10/25/18 00:01 71 21 125/77 10/24/18 23:01 75 15 116/75 10/24/18 22:24 70 19 10/24/18 22:01 75 19 109/74 10/24/18 21:31 75 19 10/24/18 21:01 80 19 101/74 10/24/18 20:16 79 0 L 10/24/18 20:01 99.0 F 81 22 116/77 10/24/18 20:00 10/24/18 19:01 80 20 117/85 10/24/18 18:01 99.3 F H 85 17 120/84 10/24/18 17:01 101.0 F H 104 H 19 120/86 10/24/18 16:32 96 H 21 117/91 10/24/18 16:05 101.4 F H 97 H 22 122/82 10/24/18 15:31 96 H 24 H 122/79 10/24/18 15:16 101 H 20 123/89 10/24/18 15:04 100.4 F H 99 H 21 136/87 10/24/18 15:03 118/71 10/24/18 14:59 19 126/68 10/24/18 14:48 100.4 F H 104 H 22 118/71 136/87 Pulse Ox 10/25/18 14:16 91 10/25/18 14:01 91 10/25/18 13:46 10/25/18 13:31 10/25/18 13:15 95 10/25/18 13:07 96 10/25/18 12:53 95 10/25/18 12:48 92 10/25/18 12:43 93 10/25/18 12:38 96 10/25/18 11:37 10/25/18 11:36 10/25/18 11:01 98 10/25/18 10:03 98 10/25/18 09:01 93 10/25/18 08:01 94 10/25/18 07:01 96 10/25/18 07:00 94 10/25/18 06:01 94 10/25/18 06:00 93 10/25/18 05:01 94 10/25/18 04:25 94 10/25/18 04:01 96 10/25/18 03:08 97 10/25/18 02:02 96 10/25/18 02:01 96 10/25/18 02:00 98 10/25/18 01:06 96 10/25/18 01:01 95 10/25/18 00:01 97 10/24/18 23:01 96 10/24/18 22:24 97 10/24/18 22:01 96 10/24/18 21:31 96 10/24/18 21:01 96 10/24/18 20:16 97 10/24/18 20:01 95 10/24/18 20:00 96 10/24/18 19:01 97 10/24/18 18:01 97 10/24/18 17:01 100 10/24/18 16:32 100 10/24/18 16:05 100 10/24/18 15:31 100 10/24/18 15:16 100 10/24/18 15:04 100 10/24/18 15:03 10/24/18 14:59 10/24/18 14:48 100 Intake and Output 10/25/18 10/25/18 10/25/18 05:59 13:59 21:59 Intake Total 1999 1242 / 1242 84 / 84 Output Total 1020 / 1020 1080 / 1080 220 / 220 Balance 980 / 980 162 / 162 -136 / -136 Intake: IV 1999 542 / 542 84 / 84 INVanz 0.5 GM In Sodium 50 / 50 Chloride 0.9% 50 ml @ 100 mls/ hr IV Q24H [facility] Rx#:[id number] Lactated Ringers 1,000 ml @ 20 34 / 34 mls/hr IV .Q24H [facility] Rx#: [id number] Sodium Bicarbonate Vial 150 Meq 1999 342 / 342 In Dextrose 5% in Water 850 ml @ 150 mls/hr IV Q6H [facility] Rx#: [id number] IV - Manual Only 700 / 700 Output: Urine Catheter Amount 1020 / 1020 1080 / 1080 220 / 220 Other: Urine Appearance Cloudy Clear Clear Uretheral (Ellis) Clear Urine Color Blood Tinged Blood Tinged Bright Yellow Uretheral (Ellis) Blood Tinged Urine Odor Normal Stool Size Moderate Stool Color Brown Stool Consistency Liquid # Bowel Movements 1 1 # of times incontinent of 1 1 Bowels Weight 175 lb 4.8 oz Patient Weight 10/26/18 05:59 Weight 175 lb 4.8 oz Intake & Output: Intake & Output 10/25/18 10/25/18 10/25/18 05:59 13:59 21:59 Intake Total 1999 1242 / 1242 84 / 84 Output Total 1020 / 1020 1079 / 1079 220 / 220 Balance 980 / 980 162 / 162 -136 / -136 Weight 175 lb 4.8 oz Intake: IV 1999 542 / 542 84 / 84 INVanz 0.5 GM In Sodium 50 / 50 Chloride 0.9% 50 ml @ 100 mls/ hr IV Q24H [facility] Rx#:[id number] Lactated Ringers 1,000 ml @ 20 34 / 34 mls/hr IV .Q24H [facility] Rx#: [id number] Sodium Bicarbonate Vial 150 Meq 1999 342 / 342 In Dextrose 5% in Water 850 ml @ 150 mls/hr IV Q6H [facility] Rx#: [id number] IV - Manual Only 700 / 700 Output: Urine Catheter Amount 1020 / 1020 1079 / 1079 220 / 220 Other: Urine Appearance Cloudy Clear Clear Uretheral (Ellis) Clear Urine Color Blood Tinged Blood Tinged Bright Yellow Uretheral (Ellis) Blood Tinged Urine Odor Normal Stool Size Moderate Stool Color Brown Stool Consistency Liquid # Bowel Movements 1 1 # of times incontinent of 1 1 Bowels - General Appearance General appearance: appears started age, chronically ill EENT: mucous membranes moist Neck: no JVD Respiratory: clear Cardiology: no rub, no edema, normal S1, normal S2 Gastrointestinal: tenderness (in right Lower quadrant ), no guarding, no masses Integumentary: warm and dry Neurologic: no asterixis, alert and oriented x3 Musculoskeletal: no erythema, no cyanosis Psychiatric: mood/affect appropriate - Lab 10/25/18 04:00 10/25/18 04:00 Most recent lab results Calcium 8.9 mg/dl (8.6-10.4) 10/25/18 04:00 Phosphorus 6.1 mg/dL (2.7-4.5) H* 10/25/18 04:00 Magnesium 1.9 mg/dL (1.6-2.5) 10/25/18 04:00 Assessment and Plan (1) Acute renal failure Status: Acute Priority: High (2) Hyperkalemia Status: Acute Priority: High (3) Metabolic acidosis Status: Acute Priority: High (4) Anemia Status: Acute - Narrative A/P Narrative: Acute on chronic renal failure, s.creat down to 9.0 today, BUN is 101 Hyperkalemia and metabolic acidosis resolved, off of bicarb drip, will follow and start oral sodium bicarb if needed no s/o fluid excess s/p stent exchange today, will need to follow renal function to see if this improves anemia: etiology multifactorial trend, may need blood transfusion hyperphosphatemia: again will follow the trend and start phosphate binders if needed, patient is not tolerating much po intake at present no emergent need for 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
[2018-10-25] MEDS ORDERED: VANCOMYCIN PER PHARMACY IV SCH (14:41)
[2018-10-25] MEDS ORDERED: VANCOMYCIN 1,000 MG in 0.9 % SODIUM CHLORIDE 250 ML IV ONE (16:00)
[2018-10-25] MEDS: PANTOPRAZOLE 40 MG VIAL IV SCH (16:54)
--- NOTE | 2018-10-25 17:31 | XRay Report ---
CLINICAL INFORMATION: bilateral stent placement COMPARISON: None. FINDINGS: Multiple digital images submitted from the OR show contrast injection of both upper collecting systems which are both moderately hydronephrotic. Bilateral ureteral stents were successfully changed IMPRESSION: Replacement of bilateral ureteral stents Interpreted and Authenticated by: Mark Patricia 10/25/18
[2018-10-26 05:15] LABS: Basophils # (Auto) 0 K/mcL (0.0-0.3); Basophils % (Auto) 0 % (0.0-2.0); Eosinophils # (Auto) 0 K/mcL (0.0-0.7); Eosinophils % (Auto) 0 % (0.0-7.0); Granulocytes % (Auto) 88.7 % (38.0-78.0); Lymphocytes # (Auto) 0.4 K/mcL (1.5-4.8); Lymphocytes % (Auto) 5.2 % (15.5-49.0); Mean Cell Volume 88.8 fL (80.0-100.0); Mean Corpuscular HGB Conc 33.8 g/dL (31.0-36.0); Monocytes # (Auto) 0.5 K/mcL (0.1-0.9); Monocytes % (Auto) 6.1 % (1.0-12.0); Platelet Count 207 K/mcL (140-440); RBC 2.52 M/mcL (4.00-5.20); Red Cell Distribution Width 14.6 % (11.5-14.5)
[2018-10-26] MEDS: 0.9 % SODIUM CHLORIDE 10 ML SYRINGE IV SCH ×9 (05:31→22:08)
[2018-10-26 05:38] LABS: ALT/SGPT 20 U/l (0-40); Albumin 3.2 gm/dL (3.2-5.2); Alkaline Phosphatase 125 U/L (39-117); Bilirubin,Direct < 0.2 mg/dL (0.0-0.3); Blood Urea Nitrogen 80 mg/dl (6-20); Gamma Glutamyl Transpeptidase 91 U/L (5-36); Uric Acid 8.7 mg/dL (2.5-8.0)
[2018-10-26] MEDS: PANTOPRAZOLE 40 MG VIAL IV SCH ×2 (08:07→16:09)
[2018-10-26] MEDS ORDERED: TAMSULOSIN 0.4 MG CAPSULE PO SCH (09:00)
[2018-10-26] MEDS ORDERED: ERTAPENEM 0.5 GM in 0.9 % SODIUM CHLORIDE 50 ML IV SCH (09:00)
[2018-10-26] MEDS ORDERED: HEPARIN 5,000 UNIT/ML VIAL SQ SCH (09:04)
[2018-10-26] MEDS ORDERED: NALOXONE HCL 0.4 MG/ML VIAL IV PRN (10:14)
[2018-10-26] MEDS ORDERED: VANCOMYCIN PER PHARMACY IV SCH (10:14)
[2018-10-26] MEDS ORDERED: PROMETHAZINE 25 MG/ML VIAL IV PRN (10:14)
[2018-10-26] MEDS ORDERED: DOCUSATE SODIUM 100 MG CAPSULE PO PRN (10:14)
[2018-10-26] MEDS ORDERED: ACETAMINOPHEN 325 MG TABLET PO PRN (10:14)
--- NOTE | 2018-10-26 11:01 | Internal Med Progress Note ---
Medical - PN: Subj Patient information: Note initiated : 10/26/18 at 10:59 am Service Date, if different from initiated Date: [] Patient: Leonor Thompson a 43 y/o F admitted on 10/24/18 for kidney problems. Chief Complaint: [] Interval history: Ms. Thompson is a 43 year old F with history of metastatic cervical cancer, presently not pursuing treatment presents to the emergency room for evaluation of abnormal labs. This is a pleasant 43-year-old female who was admitted to this facility a few months ago and was diagnosed with postobstructive renal failure. At that point in time stents were placed and the kidney function improved but was never normal. She has been followed by Dr. Branch and Dr. Clemens in the clinic. For the last few months the patient has reported that she has had no good appetite, she has been taking some milk and some clementines. Over the last 2- 3 days her condition worsened significantly and she felt weak fatigued and tired cold. She went to see urgent care physician at [facility] today and blood work showed worsening renal function and she was asked to come to the hospital for further management. The patient denies any headache changes in vision difficulty in swallowing, admits to some nausea and decreased appetite denies any cough chest pain shortness of breath but is fatigued on ambulation. She has abdominal pain that was also concerning in the left lower quadrant that started a few days ago which also contributed her going to the urgent care center today. The patient is incontinent to urine. The pain in the abdomen is worse with movement better with rest and some pain meds. She denies any blood in the stools denies any new joint pains or skin rashes. In the emergency room on presentation patient was afebrile temperature 97.8 heart rate 92 blood pressure 148 x 92 saturating 100% on room air. Labs show hemoglobin of 8.4 WBC 7.6 lactic acid 0.7 platelets 227. Sodium 133 potassium 6.4 bicarbonate 14 chloride 97 BUN 107 creatinine 9.6 glucose 80 Urine dip positive for nitrite and leukocyte esterase. ABG shows pH of 7.31 PCO2 628 PO2 90 on room air Patient had a renal ultrasound, KUB CT done. Nephrology and neurology have been consulted. EKG shows sinus tachycardia with low voltage chest x-ray shows no acute infiltrates. Patient is being admitted to the hospital for further management, patient wishes DNR status 10/25 Patient seen and examined, overnight had significant nausea and vomiting. She also had some diarrhea due to Kayexalate. Blood cultures positive aerobic and anaerobic bottle gram variable bacteria at this time IV vancomycin and IV ertapenum ordered. Pt has h/o allergy to penicillin, test dose of ertapenum 0.1ml ID given, in 20-30 mins, no itching, ho increased size of the wheal noted. I believe she should be able to tolerate this medication well d/c cipro Stents exchanged by Dr Branch. Renal function still abnormal, but potassium is better d/c bicarb drip. 10/26 Patient seen examined appetite returning blood cultures still has gram variable rods Plan to get CT with oral contrast to r/o any invasion of bowels by cervical cancer creat trending down, K stable pt still has diarrhea. Pertinent ROS: Denies headache, dizziness Denies chest pain, palpitations Denies cough or shortness of breath Denies abdominal pain, nausea or vomiting. (abdominal pain much improved) - Constitutional Vitals: Vital Signs Temp Pulse Resp BP Pulse Ox 99.2 F H 73 20 142/96 95 10/26/18 08:15 10/26/18 08:15 10/26/18 08:15 10/26/18 08:15 10/26/18 08:15 Period Temp Pulse Resp BP Sys/Harris Pulse Ox Last 24 Hr 98.2 F-101.0 F 48-93 0-29 106-143/61-96 91-98 Intake and Output 10/25/18 10/26/18 10/26/18 21:59 05:59 13:59 Intake Total 664 / 664 220 / 220 Output Total 1250 / 1250 1101 / 1101 290 / 290 Balance -586 / -586 -881 / -881 -290 / -290 Weight 176 lb 9.6 oz Intake & Output: Intake & Output 10/25/18 10/26/18 10/26/18 21:59 05:59 13:59 Intake Total 664 / 664 220 / 220 Output Total 1250 / 1250 1101 / 1101 290 / 290 Balance -586 / -586 -881 / -881 -290 / -290 Weight 176 lb 9.6 oz Intake: IV 334 / 334 INVanz 0.5 GM In Sodium 50 / 50 Chloride 0.9% 50 ml @ 100 mls/ hr IV Q24H [facility] Rx#:[id number] Lactated Ringers 1,000 ml @ 20 34 / 34 mls/hr IV .Q24H [facility] Rx#: [id number] Vancomycin 1,000 mg In Sodium 250 / 250 Chloride 0.9% 250 ml @ 250 mls/ hr IV ONCE ONE Rx#:[id number] Oral 330 / 330 220 / 220 Output: Urine Catheter Amount 1175 / 1175 950 / 950 190 / 190 # of times incontinent of urine Stool 75 / 75 150 / 150 100 / 100 Other: Meal snACK Percent of Meal Consumed 100% Urine Appearance Clear Clear Clear Uretheral (Ellis) Clear Clear Urine Color Bright Yellow Bright Yellow Bright Yellow Uretheral (Ellis) Bright Yellow Bright Yellow Urine Odor Normal Stool Size Small Small Small Stool Color Brown Brown Brown Stool Consistency Liquid Formed Liquid Liquid # Bowel Movements 1 # of times incontinent of 1 1 Bowels Exam: Constitutional; Afebrile, cooperative, alert, not in distress. Respiratory system: Air Entry equal on both sides, No crackles or wheezing, no rhonchi. CVS- Rate rhythm regular, S1,S2 heard, no gallop, no rub. Abdomen- Soft nontender abdomen, no organomegaly, no tenderness, no guarding or rigidity, [employer]- AOOx3, moving all extremities, no gross focal deficit noted. Medical - PN: Obj Da - Labs CBC & Chem 7: 10/26/18 04:00 10/26/18 04:00 Labs: Abnormal Lab Results 10/26/18 10/26/18 10/25/18 04:00 04:00 06:47 RBC 2.52 L Hgb 7.6 L Hct 22.3 L RDW 14.6 H Gran % 88.7 H Lymph % (Auto) 5.2 L [place] % (Auto) Lymph # (Auto) 0.4 L PT 15.9 H INR 1.3 H Sodium Potassium Chloride Carbon Dioxide Anion Gap BUN 80 H Creatinine 6.9 H* Glucose 132 H Uric Acid 8.7 H Phosphorus 6.3 H* GGT 91 H Alkaline Phosphatase 125 H Albumin Albumin/Globulin Ratio Urine Protein Urine Occult Blood Ur Leukocyte Esterase Urine RBC Urine WBC Ur Squamous Epith Cells Calcium Oxalate Crystal Amorphous Crystals Urine Mucus 10/25/18 10/25/18 10/24/18 04:00 04:00 22:00 RBC 2.41 L Hgb 7.2 L Hct 21.4 L RDW Gran % Lymph % (Auto) 9.0 L [place] % (Auto) 13.6 H Lymph # (Auto) 0.5 L PT INR Sodium 132 L Potassium 5.2 H Chloride 94 L Carbon Dioxide 21 L Anion Gap 19.0 H 17.0 H BUN 101 H* 105 H* Creatinine 9.0 H* 9.2 H* Glucose 112 H 157 H Uric Acid 9.0 H Phosphorus 6.1 H* GGT 91 H Alkaline Phosphatase 131 H Albumin 2.8 L Albumin/Globulin Ratio 0.9 L Urine Protein Urine Occult Blood Ur Leukocyte Esterase Urine RBC Urine WBC Ur Squamous Epith Cells Calcium Oxalate Crystal Amorphous Crystals Urine Mucus 10/24/18 10/24/18 10/24/18 17:00 16:00 11:30 RBC Hgb Hct RDW Gran % Lymph % (Auto) [place] % (Auto) Lymph # (Auto) PT INR Sodium Potassium 5.6 H 6.4 H* Chloride Carbon Dioxide 15 L 14 L Anion Gap 19.0 H 22.0 H BUN 105 H* 107 H* Creatinine 9.3 H* 9.6 H* Glucose Uric Acid Phosphorus GGT Alkaline Phosphatase 146 H Albumin Albumin/Globulin Ratio Urine Protein 100 A Urine Occult Blood >=1.0 A Ur Leukocyte Esterase 75 A Urine RBC > 182 H Urine WBC > 182 H Ur Squamous Epith Cells 9 H Calcium Oxalate Crystal Many A Amorphous Crystals Many A Urine Mucus Many A 10/24/18 11:30 RBC 2.77 L Hgb 8.4 L Hct 24.4 L RDW Gran % 82.9 H Lymph % (Auto) 6.2 L [place] % (Auto) Lymph # (Auto) 0.5 L PT INR Sodium Potassium Chloride Carbon Dioxide Anion Gap BUN Creatinine Glucose Uric Acid Phosphorus GGT Alkaline Phosphatase Albumin Albumin/Globulin Ratio Urine Protein Urine Occult Blood Ur Leukocyte Esterase Urine RBC Urine WBC Ur Squamous Epith Cells Calcium Oxalate Crystal Amorphous Crystals Urine Mucus Meds: Medications Acetaminophen (Tylenol) 650 mg PO Q4-6HP PRN PRN Reason: PAIN/FEVER > 101 Docusate Sodium (Colace) 100 mg PO DAILYP PRN PRN Reason: Constipation Heparin Sodium (Porcine) (Heparin Flush) 5 ml IV Q12 [facility] Heparin Sodium (Porcine) (Heparin) 5,000 unit SQ Q12 [facility] Hydromorphone HCl (Dilaudid) 0.5 mg IV Q2HP PRN PRN Reason: PAIN LEVEL > 6 Ertapenem 0.5 gm/ Sodium (Chloride) 50 mls @ 100 mls/hr IV Q24H [facility] Naloxone HCl (Narcan) 0.1 mg IV Q2MIN PRN PRN Reason: Opiate Reversal Ondansetron HCl (Zofran) 4 mg IV Q4-6HP PRN PRN Reason: Nausea And Vomiting Oxycodone HCl (Roxicodone) 10 mg PO Q4HP PRN PRN Reason: Pain Pantoprazole Sodium (Protonix) 40 mg IV BIDAC [facility] Promethazine HCl (Phenergan) 12.5 mg IV Q4-6HP PRN PRN Reason: Nausea And Vomiting Sevelamer Carbonate (Renvela) 1,600 mg PO TIDCC [facility] Sodium Chloride (Saline Flush) 10 ml IV Q8 [facility] Sodium Chloride (Saline Flush) 10 ml IV Q12 [facility] Vancomycin HCl (Vancomycin Per Pharmacy) 1 order IV UD [facility] Medical - PN: A/P - Time Spent With Patient Total time spent is greater than 50% in coordination of care (as documented) at patient's floor/unit and/or counseling patient: - Narrative A/P Narrative: A/P Acute on Chronic Renal failure -due to cervical cancer, stent blockage? -s/p stent exchange, pt has good urine output, -Creat is now trending down -nephrology following Metabolic Acidosis , NAGMA and HGAMA (due to renal failure) -resolved Urinary tract infection -On IV meropenum which should cover UTI Gram variable rods Bactermia -source? UTI? Vs Enteric -There was mass noted on cystoscopy, wonder if is invading the bowels -Get CT abdomen and pelvis with oral contrast. Anemia of chr disease -hb stable 7.6, check ferritin and iron sat Hyperkalemia -resolved Sepsis -resolving. DVT hep sq Diet renal renal diet DNR code status. Medical - PN: Qual - VTE Deep Vein Thrombosis/Pulmonary Embolism Present on Admission: No
[2018-10-26] MEDS: HYDROmorphone 2 MG/ML VIAL IV PRN ×3 (11:07→19:38)
[2018-10-26] MEDS ORDERED: SEVELAMER 800 MG TABLET PO SCH (12:00)
[2018-10-26 13:17] LABS: Ferritin 725.9 ng/ml (13-150)
[2018-10-26] MEDS: metroNIDAZOLE 500 MG TABLET PO SCH ×2 (13:18→22:07)
[2018-10-26] MEDS: SEVELAMER 800 MG TABLET PO SCH ×2 (13:18→18:48)
[2018-10-26 13:33] LABS: Vancomycin,Random 15.5 ug/mL
--- NOTE | 2018-10-26 13:41 | Internal Med Progress Note ---
Medical - PN: Subj Patient information: Note initiated : 10/26/18 at 1:36 pm Service Date, if different from initiated Date: [] Patient: Leonor Thompson a 43 y/o F admitted on 10/24/18 for kidney problems. Chief Complaint: [] Interval history: Ms. Thompson is a 43 year old F with history of metastatic cervical cancer, presently not pursuing treatment presents to the emergency room for evaluation of abnormal labs. This is a pleasant 43-year-old female who was admitted to this facility a few months ago and was diagnosed with postobstructive renal failure. At that point in time stents were placed and the kidney function improved but was never normal. She has been followed by Dr. Branch and Dr. Clemens in the clinic. For the last few months the patient has reported that she has had no good appetite, she has been taking some milk and some clementines. Over the last 2- 3 days her condition worsened significantly and she felt weak fatigued and tired cold. She went to see urgent care physician at [facility] today and blood work showed worsening renal function and she was asked to come to the hospital for further management. The patient denies any headache changes in vision difficulty in swallowing, admits to some nausea and decreased appetite denies any cough chest pain shortness of breath but is fatigued on ambulation. She has abdominal pain that was also concerning in the left lower quadrant that started a few days ago which also contributed her going to the urgent care center today. The patient is incontinent to urine. The pain in the abdomen is worse with movement better with rest and some pain meds. She denies any blood in the stools denies any new joint pains or skin rashes. In the emergency room on presentation patient was afebrile temperature 97.8 heart rate 92 blood pressure 148 x 92 saturating 100% on room air. Labs show hemoglobin of 8.4 WBC 7.6 lactic acid 0.7 platelets 227. Sodium 133 potassium 6.4 bicarbonate 14 chloride 97 BUN 107 creatinine 9.6 glucose 80 Urine dip positive for nitrite and leukocyte esterase. ABG shows pH of 7.31 PCO2 628 PO2 90 on room air Patient had a renal ultrasound, KUB CT done. Nephrology and neurology have been consulted. EKG shows sinus tachycardia with low voltage chest x-ray shows no acute infiltrates. Patient is being admitted to the hospital for further management, patient wishes DNR status 10/25 Patient seen and examined, overnight had significant nausea and vomiting. She also had some diarrhea due to Kayexalate. Blood cultures positive aerobic and anaerobic bottle gram variable bacteria at this time IV vancomycin and IV ertapenum ordered. Pt has h/o allergy to penicillin, test dose of ertapenum 0.1ml ID given, in 20-30 mins, no itching, ho increased size of the wheal noted. I believe she should be able to tolerate this medication well d/c cipro Stents exchanged by Dr Branch. Renal function still abnormal, but potassium is better d/c bicarb drip. 10/26 Patient seen examined appetite returning blood cultures still has gram variable rods Plan to get CT with oral contrast to r/o any invasion of bowels by cervical cancer creat trending down, K stable pt still has diarrhea. 10/27 - Constitutional Vitals: Vital Signs Temp Pulse Resp BP Pulse Ox 98.2 F 73 19 140/85 95 10/26/18 12:29 10/26/18 08:15 10/26/18 12:29 10/26/18 12:29 10/26/18 12:29 Period Temp Pulse Resp BP Sys/Harris Pulse Ox Last 24 Hr 98.2 F-99.4 F 48-93 10-26 107-143/70-96 91-97 Intake and Output 10/25/18 10/26/18 10/26/18 21:59 05:59 13:59 Intake Total 664 / 664 220 / 220 Output Total 1250 / 1250 1101 / 1101 390 / 390 Balance -586 / -586 -881 / -881 -390 / -390 Weight 80.104 kg Intake & Output: Intake & Output 10/25/18 10/26/18 10/26/18 21:59 05:59 13:59 Intake Total 664 / 664 220 / 220 Output Total 1250 / 1250 1101 / 1101 390 / 390 Balance -586 / -586 -881 / -881 -390 / -390 Weight 80.104 kg Intake: IV 334 / 334 INVanz 0.5 GM In Sodium 50 / 50 Chloride 0.9% 50 ml @ 100 mls/ hr IV Q24H [facility] Rx#:[id number] Lactated Ringers 1,000 ml @ 20 34 / 34 mls/hr IV .Q24H [facility] Rx#: [id number] Vancomycin 1,000 mg In Sodium 250 / 250 Chloride 0.9% 250 ml @ 250 mls/ hr IV ONCE ONE Rx#:[id number] Oral 330 / 330 220 / 220 Output: Urine Catheter Amount 1175 / 1175 950 / 950 290 / 290 # of times incontinent of urine 1 / Stool 75 / 75 150 / 150 100 / 100 Other: Meal snACK Percent of Meal Consumed 100% Urine Appearance Clear Clear Clear Uretheral (Ellis) Clear Clear Clear Urine Color Bright Yellow Bright Yellow Pale Uretheral (Ellis) Bright Yellow Bright Yellow Bright Yellow Urine Odor Normal Stool Size Small Small Small Stool Color Brown Brown Brown Stool Consistency Liquid Formed Liquid Liquid # Bowel Movements 1 # of times incontinent of 1 1 Bowels Exam: General: Alert, Awake, No acute Distress Eyes/N/T: EOMI, Head/Neck: neck supple, CV: RRR, No murmurs, Pulm: Clear b/l, no wheezing/rhonchi/rales Abd: soft, nontender, +BS x4 Ext: no clubbing/cyanosis/edema Neuro: Alert, no focal deficits, moves all extremities, Skin: warm/dry Medical - PN: Obj Da - Labs CBC & Chem 7: 10/26/18 04:00 10/26/18 04:00 Labs: Abnormal Lab Results 10/26/18 10/26/18 10/26/18 09:25 04:00 04:00 RBC 2.52 L Hgb 7.6 L Hct 22.3 L RDW 14.6 H Gran % 88.7 H Lymph % (Auto) 5.2 L [place] % (Auto) Lymph # (Auto) 0.4 L PT INR Sodium Potassium Chloride Carbon Dioxide Anion Gap BUN 80 H Creatinine 6.9 H* Glucose 132 H Uric Acid 8.7 H Phosphorus 6.3 H* TIBC 139 L Unsat Iron Binding 61 L Transferrin % Sat 56 H Ferritin 725.9 H GGT 91 H Alkaline Phosphatase 125 H Albumin Albumin/Globulin Ratio Urine Protein Urine Occult Blood Ur Leukocyte Esterase Urine RBC Urine WBC Ur Squamous Epith Cells Calcium Oxalate Crystal Amorphous Crystals Urine Mucus 10/25/18 10/25/18 10/25/18 06:47 04:00 04:00 RBC 2.41 L Hgb 7.2 L Hct 21.4 L RDW Gran % Lymph % (Auto) 9.0 L [place] % (Auto) 13.6 H Lymph # (Auto) 0.5 L PT 15.9 H INR 1.3 H Sodium Potassium Chloride Carbon Dioxide Anion Gap 19.0 H BUN 101 H* Creatinine 9.0 H* Glucose 112 H Uric Acid 9.0 H Phosphorus 6.1 H* TIBC Unsat Iron Binding Transferrin % Sat Ferritin GGT 91 H Alkaline Phosphatase 131 H Albumin 2.8 L Albumin/Globulin Ratio 0.9 L Urine Protein Urine Occult Blood Ur Leukocyte Esterase Urine RBC Urine WBC Ur Squamous Epith Cells Calcium Oxalate Crystal Amorphous Crystals Urine Mucus 10/24/18 10/24/18 10/24/18 22:00 17:00 16:00 RBC Hgb Hct RDW Gran % Lymph % (Auto) [place] % (Auto) Lymph # (Auto) PT INR Sodium 132 L Potassium 5.2 H 5.6 H Chloride 94 L Carbon Dioxide 21 L 15 L Anion Gap 17.0 H 19.0 H BUN 105 H* 105 H* Creatinine 9.2 H* 9.3 H* Glucose 157 H Uric Acid Phosphorus TIBC Unsat Iron Binding Transferrin % Sat Ferritin GGT Alkaline Phosphatase Albumin Albumin/Globulin Ratio Urine Protein 100 A Urine Occult Blood >=1.0 A Ur Leukocyte Esterase 75 A Urine RBC > 182 H Urine WBC > 182 H Ur Squamous Epith Cells 9 H Calcium Oxalate Crystal Many A Amorphous Crystals Many A Urine Mucus Many A 10/24/18 10/24/18 11:30 11:30 RBC 2.77 L Hgb 8.4 L Hct 24.4 L RDW Gran % 82.9 H Lymph % (Auto) 6.2 L [place] % (Auto) Lymph # (Auto) 0.5 L PT INR Sodium Potassium 6.4 H* Chloride Carbon Dioxide 14 L Anion Gap 22.0 H BUN 107 H* Creatinine 9.6 H* Glucose Uric Acid Phosphorus TIBC Unsat Iron Binding Transferrin % Sat Ferritin GGT Alkaline Phosphatase 146 H Albumin Albumin/Globulin Ratio Urine Protein Urine Occult Blood Ur Leukocyte Esterase Urine RBC Urine WBC Ur Squamous Epith Cells Calcium Oxalate Crystal Amorphous Crystals Urine Mucus Meds: Medications Acetaminophen (Tylenol) 650 mg PO Q4-6HP PRN PRN Reason: PAIN/FEVER > 101 Docusate Sodium (Colace) 100 mg PO DAILYP PRN PRN Reason: Constipation Heparin Sodium (Porcine) (Heparin Flush) 5 ml IV Q12 [facility] Heparin Sodium (Porcine) (Heparin) 5,000 unit SQ Q12 [facility] Hydromorphone HCl (Dilaudid) 0.5 mg IV Q2HP PRN PRN Reason: PAIN LEVEL > 6 Last Admin: 10/26/18 11:07 Dose: 0.5 mg Ertapenem 0.5 gm/ Sodium (Chloride) 50 mls @ 100 mls/hr IV Q24H [facility] Metronidazole (Flagyl) 500 mg PO Q8 [facility] Last Admin: 10/26/18 13:18 Dose: 500 mg Naloxone HCl (Narcan) 0.1 mg IV Q2MIN PRN PRN Reason: Opiate Reversal Ondansetron HCl (Zofran) 4 mg IV Q4-6HP PRN PRN Reason: Nausea And Vomiting Oxycodone HCl (Roxicodone) 10 mg PO Q4HP PRN PRN Reason: Pain Pantoprazole Sodium (Protonix) 40 mg IV BIDAC [facility] Promethazine HCl (Phenergan) 12.5 mg IV Q4-6HP PRN PRN Reason: Nausea And Vomiting Sevelamer Carbonate (Renvela) 1,600 mg PO TIDCC [facility] Last Admin: 10/26/18 13:18 Dose: Not Given Sodium Chloride (Saline Flush) 10 ml IV Q8 [facility] Last Admin: 10/26/18 11:09 Dose: 10 ml Sodium Chloride (Saline Flush) 10 ml IV Q12 [facility] Vancomycin HCl (Vancomycin Per Pharmacy) 1 order IV UD [facility] Medical - PN: A/P - Time Spent With Patient Total time spent is greater than 50% in coordination of care (as documented) at patient's floor/unit and/or counseling patient: - Narrative A/P Narrative: A: *Acute on Chronic Renal failure: due to cervical cancer, stent blockage? -s/p stent exchange by Dr Branch, pt has good urine output, -Creat is now trending down *Metabolic Acidosis , NAGMA and HGAMA (due to renal failure): resolved *Urinary tract infection: *Bactermia (Clostridium ramosum): source UTI? Vs Enteric? -There was mass noted on cystoscopy, wonder if is invading the bowels *Sepsis: -resolving. *Anemia of chr disease: hb stable 7.6, check ferritin and iron sat *Hyperkalemia: -resolved P: -Nephrology following -Urology -Vanc/Ertapenem/PO flagyl -Discuss with ID -pending CT abdomen and pelvis with oral contrast. - -ppx: hep sq DNR code status. Medical - PN: Qual - VTE Deep Vein Thrombosis/Pulmonary Embolism Present on Admission: No
[2018-10-26] MEDS: oxyCODONE HCL 5 MG TABLET PO PRN ×2 (15:11→22:07)
[2018-10-26] MEDS: HEPARIN 5,000 UNIT/ML VIAL SQ SCH (22:11)
[2018-10-27] MEDS: HYDROmorphone 2 MG/ML VIAL IV PRN ×6 (02:58→21:09)
[2018-10-27] MEDS: oxyCODONE HCL 5 MG TABLET PO PRN ×4 (03:59→21:11)
[2018-10-27] MEDS: metroNIDAZOLE 500 MG TABLET PO SCH ×3 (05:15→21:09)
[2018-10-27] MEDS: 0.9 % SODIUM CHLORIDE 10 ML SYRINGE IV SCH ×5 (05:15→21:08)
[2018-10-27 05:20] LABS: Basophils # (Auto) 0 K/mcL (0.0-0.3); Basophils % (Auto) 0.3 % (0.0-2.0); Eosinophils # (Auto) 0.1 K/mcL (0.0-0.7); Eosinophils % (Auto) 1.5 % (0.0-7.0); Granulocytes % (Auto) 66.4 % (38.0-78.0); Lymphocytes # (Auto) 1.5 K/mcL (1.5-4.8); Lymphocytes % (Auto) 19.8 % (15.5-49.0); Mean Cell Volume 88.8 fL (80.0-100.0); Monocytes # (Auto) 0.9 K/mcL (0.1-0.9); Platelet Count 252 K/mcL (140-440); RBC 2.68 M/mcL (4.00-5.20); Red Cell Distribution Width 13.9 % (11.5-14.5)
[2018-10-27 05:32] LABS: Vancomycin,Random 10.7 ug/mL
[2018-10-27 06:03] LABS: ALT/SGPT 22 U/l (0-40); Alkaline Phosphatase 116 U/L (39-117); Bilirubin,Direct < 0.2 mg/dL (0.0-0.3); Blood Urea Nitrogen 60 mg/dl (6-20); Gamma Glutamyl Transpeptidase 94 U/L (5-36); Uric Acid 6.8 mg/dL (2.5-8.0)
--- NOTE | 2018-10-27 07:29 | Internal Med Progress Note ---
Medical - PN: Subj Patient information: Note initiated : 10/27/18 at 7:22 am Service Date, if different from initiated Date: [] Patient: Leonor Thompson a 43 y/o F admitted on 10/24/18 for kidney problems. Chief Complaint: [] Interval history: Ms. Thompson is a 43 year old F with history of metastatic cervical cancer, presently not pursuing treatment presents to the emergency room for evaluation of abnormal labs. This is a pleasant 43-year-old female who was admitted to this facility a few months ago and was diagnosed with postobstructive renal failure. At that point in time stents were placed and the kidney function improved but was never normal. She has been followed by Dr. Branch and Dr. Clemens in the clinic. For the last few months the patient has reported that she has had no good appetite, she has been taking some milk and some clementines. Over the last 2- 3 days her condition worsened significantly and she felt weak fatigued and tired cold. She went to see urgent care physician at [facility] today and blood work showed worsening renal function and she was asked to come to the hospital for further management. The patient denies any headache changes in vision difficulty in swallowing, admits to some nausea and decreased appetite denies any cough chest pain shortness of breath but is fatigued on ambulation. She has abdominal pain that was also concerning in the left lower quadrant that started a few days ago which also contributed her going to the urgent care center today. The patient is incontinent to urine. The pain in the abdomen is worse with movement better with rest and some pain meds. She denies any blood in the stools denies any new joint pains or skin rashes. In the emergency room on presentation patient was afebrile temperature 97.8 heart rate 92 blood pressure 148 x 92 saturating 100% on room air. Labs show hemoglobin of 8.4 WBC 7.6 lactic acid 0.7 platelets 227. Sodium 133 potassium 6.4 bicarbonate 14 chloride 97 BUN 107 creatinine 9.6 glucose 80 Urine dip positive for nitrite and leukocyte esterase. ABG shows pH of 7.31 PCO2 628 PO2 90 on room air Patient had a renal ultrasound, KUB CT done. Nephrology and neurology have been consulted. EKG shows sinus tachycardia with low voltage chest x-ray shows no acute infiltrates. Patient is being admitted to the hospital for further management, patient wishes DNR status 10/25 Patient seen and examined, overnight had significant nausea and vomiting. She also had some diarrhea due to Kayexalate. Blood cultures positive aerobic and anaerobic bottle gram variable bacteria at this time IV vancomycin and IV ertapenum ordered. Pt has h/o allergy to penicillin, test dose of ertapenum 0.1ml ID given, in 20-30 mins, no itching, ho increased size of the wheal noted. I believe she should be able to tolerate this medication well d/c cipro Stents exchanged by Dr Branch. Renal function still abnormal, but potassium is better d/c bicarb drip. 10/26 Patient seen examined appetite returning blood cultures still has gram variable rods Plan to get CT with oral contrast to r/o any invasion of bowels by cervical cancer creat trending down, K stable pt still has diarrhea. 10/27 Slept well. Better appetite. CT abdomen pelvis with 8 x 3 cm cervical mass juxtaposed to the posterior wall of the bladder and to the wall of the rectum unable to determine if there is invasion into those tissues. Overall feeling better. Diarrhea improving. Had a discussion about her regarding her cervical cancer. She has had chemoradiation surgery in the past. Found to have recurrence but did not want any further treatment. She did have a PET scan in August which showed liver lesions. Again she does not want to pursue any treatment and understands that it is terminal without treatment. Review of Systems: denies headache/fever/chills/nausea/vomiting/chest or abdominal pain/cough/ dyspnea. Otherwise see above. - Constitutional Vitals: Vital Signs Temp Pulse Resp BP Pulse Ox 97.9 F 67 16 133/82 96 10/27/18 03:58 10/27/18 03:58 10/27/18 03:58 10/27/18 03:58 10/27/18 03:58 Period Temp Pulse Resp BP Sys/Harris Pulse Ox Last 24 Hr 97.9 F-99.2 F 67-79 16-20 124-142/77-96 95-98 Intake and Output 10/26/18 10/27/18 10/27/18 21:59 05:59 13:59 Intake Total 1940 / 1940 100 / 100 Output Total 1100 / 1100 375 / 375 Balance 840 / 840 -275 / -275 Weight 80.286 kg Intake & Output: Intake & Output 10/26/18 10/27/18 10/27/18 21:59 05:59 13:59 Intake Total 1939 100 / 100 Output Total 1100 / 1100 375 / 375 Balance 840 / 840 -275 / -275 Weight 80.286 kg Intake: Oral 1939 100 / 100 Output: Urine Catheter Amount 750 / 750 375 / 375 Stool 350 / 350 Other: Meal Nourishment/Supplement Percent of Meal Consumed 100% Feeding Ability Independent Urine Appearance Clear Clear Uretheral (Ellis) Clear Urine Color Bright Yellow Bright Yellow Uretheral (Ellis) Bright Yellow Urine Odor Normal Stool Size Smear Stool Color Brown Bright Red Blood Stool Consistency Formed Liquid # of times incontinent of 1 Bowels Exam: General: Alert, Awake, No acute Distress Eyes/N/T: EOMI, Head/Neck: neck supple, CV: RRR, No murmurs, Pulm: Clear b/l, no wheezing/rhonchi/rales Abd: soft, nontender, +BS x4 Ext: no clubbing/cyanosis/edema Neuro: Alert, no focal deficits, moves all extremities, Skin: warm/dry Medical - PN: Obj Da - Labs CBC & Chem 7: 10/27/18 04:00 10/27/18 04:00 Labs: Abnormal Lab Results 10/27/18 10/27/18 10/26/18 04:00 04:00 09:25 RBC 2.68 L Hgb 8.1 L Hct 23.8 L RDW Gran % Lymph % (Auto) [place] % (Auto) Lymph # (Auto) PT INR Sodium Potassium 3.2 L Chloride Carbon Dioxide Anion Gap BUN 60 H Creatinine 5.1 H* Glucose Uric Acid Calcium 8.4 L Phosphorus Magnesium 1.5 L TIBC 139 L Unsat Iron Binding 61 L Transferrin % Sat 56 H Ferritin 725.9 H GGT 94 H Alkaline Phosphatase Albumin 3.0 L Albumin/Globulin Ratio Triglycerides 167 H Urine Protein Urine Occult Blood Ur Leukocyte Esterase Urine RBC Urine WBC Ur Squamous Epith Cells Calcium Oxalate Crystal Amorphous Crystals Urine Mucus 10/26/18 10/26/18 10/25/18 04:00 04:00 06:47 RBC 2.52 L Hgb 7.6 L Hct 22.3 L RDW 14.6 H Gran % 88.7 H Lymph % (Auto) 5.2 L [place] % (Auto) Lymph # (Auto) 0.4 L PT 15.9 H INR 1.3 H Sodium Potassium Chloride Carbon Dioxide Anion Gap BUN 80 H Creatinine 6.9 H* Glucose 132 H Uric Acid 8.7 H Calcium Phosphorus 6.3 H* Magnesium TIBC Unsat Iron Binding Transferrin % Sat Ferritin GGT 91 H Alkaline Phosphatase 125 H Albumin Albumin/Globulin Ratio Triglycerides Urine Protein Urine Occult Blood Ur Leukocyte Esterase Urine RBC Urine WBC Ur Squamous Epith Cells Calcium Oxalate Crystal Amorphous Crystals Urine Mucus 10/25/18 10/25/18 10/24/18 04:00 04:00 22:00 RBC 2.41 L Hgb 7.2 L Hct 21.4 L RDW Gran % Lymph % (Auto) 9.0 L [place] % (Auto) 13.6 H Lymph # (Auto) 0.5 L PT INR Sodium 132 L Potassium 5.2 H Chloride 94 L Carbon Dioxide 21 L Anion Gap 19.0 H 17.0 H BUN 101 H* 105 H* Creatinine 9.0 H* 9.2 H* Glucose 112 H 157 H Uric Acid 9.0 H Calcium Phosphorus 6.1 H* Magnesium TIBC Unsat Iron Binding Transferrin % Sat Ferritin GGT 91 H Alkaline Phosphatase 131 H Albumin 2.8 L Albumin/Globulin Ratio 0.9 L Triglycerides Urine Protein Urine Occult Blood Ur Leukocyte Esterase Urine RBC Urine WBC Ur Squamous Epith Cells Calcium Oxalate Crystal Amorphous Crystals Urine Mucus 10/24/18 10/24/18 10/24/18 17:00 16:00 11:30 RBC Hgb Hct RDW Gran % Lymph % (Auto) [place] % (Auto) Lymph # (Auto) PT INR Sodium Potassium 5.6 H 6.4 H* Chloride Carbon Dioxide 15 L 14 L Anion Gap 19.0 H 22.0 H BUN 105 H* 107 H* Creatinine 9.3 H* 9.6 H* Glucose Uric Acid Calcium Phosphorus Magnesium TIBC Unsat Iron Binding Transferrin % Sat Ferritin GGT Alkaline Phosphatase 146 H Albumin Albumin/Globulin Ratio Triglycerides Urine Protein 100 A Urine Occult Blood >=1.0 A Ur Leukocyte Esterase 75 A Urine RBC > 182 H Urine WBC > 182 H Ur Squamous Epith Cells 9 H Calcium Oxalate Crystal Many A Amorphous Crystals Many A Urine Mucus Many A 10/24/18 11:30 RBC 2.77 L Hgb 8.4 L Hct 24.4 L RDW Gran % 82.9 H Lymph % (Auto) 6.2 L [place] % (Auto) Lymph # (Auto) 0.5 L PT INR Sodium Potassium Chloride Carbon Dioxide Anion Gap BUN Creatinine Glucose Uric Acid Calcium Phosphorus Magnesium TIBC Unsat Iron Binding Transferrin % Sat Ferritin GGT Alkaline Phosphatase Albumin Albumin/Globulin Ratio Triglycerides Urine Protein Urine Occult Blood Ur Leukocyte Esterase Urine RBC Urine WBC Ur Squamous Epith Cells Calcium Oxalate Crystal Amorphous Crystals Urine Mucus Meds: Medications Acetaminophen (Tylenol) 650 mg PO Q4-6HP PRN PRN Reason: PAIN/FEVER > 101 Docusate Sodium (Colace) 100 mg PO DAILYP PRN PRN Reason: Constipation Heparin Sodium (Porcine) (Heparin Flush) 5 ml IV Q12 [facility] Last Admin: 10/26/18 22:09 Dose: 5 ml Heparin Sodium (Porcine) (Heparin) 5,000 unit SQ Q12 [facility] Last Admin: 10/26/18 22:11 Dose: 5,000 unit Hydromorphone HCl (Dilaudid) 0.5 mg IV Q2HP PRN PRN Reason: PAIN LEVEL > 6 Last Admin: 10/27/18 02:58 Dose: 0.5 mg Ertapenem 0.5 gm/ Sodium (Chloride) 50 mls @ 100 mls/hr IV Q24H [facility] Vancomycin HCl 1,000 mg/ (Sodium Chloride) 250 mls @ 250 mls/hr IV ONCE ONE Stop: 10/27/18 09:59 Metronidazole (Flagyl) 500 mg PO Q8 [facility] Last Admin: 10/27/18 05:15 Dose: 500 mg Naloxone HCl (Narcan) 0.1 mg IV Q2MIN PRN PRN Reason: Opiate Reversal Ondansetron HCl (Zofran) 4 mg IV Q4-6HP PRN PRN Reason: Nausea And Vomiting Oxycodone HCl (Roxicodone) 10 mg PO Q4HP PRN PRN Reason: Pain Last Admin: 10/27/18 03:59 Dose: 10 mg Pantoprazole Sodium (Protonix) 40 mg IV BIDAC [facility] Last Admin: 10/26/18 16:09 Dose: 40 mg Promethazine HCl (Phenergan) 12.5 mg IV Q4-6HP PRN PRN Reason: Nausea And Vomiting Sevelamer Carbonate (Renvela) 1,600 mg PO TIDCC [facility] Last Admin: 10/26/18 18:48 Dose: 1,600 mg Sodium Chloride (Saline Flush) 10 ml IV Q8 [facility] Last Admin: 10/27/18 05:15 Dose: 10 ml Sodium Chloride (Saline Flush) 10 ml IV Q12 [facility] Last Admin: 10/26/18 22:08 Dose: 10 ml Vancomycin HCl (Vancomycin Per Pharmacy) 1 order IV UD [facility] Medical - PN: A/P - Time Spent With Patient Total time spent is greater than 50% in coordination of care (as documented) at patient's floor/unit and/or counseling patient: - Narrative A/P Narrative: A: *Acute on Chronic Renal failure: due to cervical cancer, stent blockage? -s/p stent exchange (10/25) by Dr Branch, pt has good urine output, -Creat is now trending down *Metabolic Acidosis: NAGMA and HGAMA (due to renal failure): resolved *Urinary tract infection: UC no growth *Bactermia (Clostridium ramosum): source UTI? Vs Enteric? -?is the cervical cancer invading bowel/bladder wall? -CT a/p shows large 8x3 cavitating mass juxtaposed to posterior wall of bladder & anterior wall of rectum, cannot determine true invasion of those organs *Sepsis: resolving *Cervical CA found in 2016, with recurrence: Has had surgery/chemo/radiation in the past and then found to have recurrence but does not want to pursue any treatment. Did have PET in august showing new liver lesions -Understands that this is terminal without treatment -Follows with Dr. Calderon in [place] for oncology *Anemia of chr disease: *Hyperkalemia: resolved P: -Nephrology following -Urology -Vanc/Ertapenem/PO flagyl -Discuss with ID - -ppx: hep sq DNR code status. Medical - PN: Qual - VTE Deep Vein Thrombosis/Pulmonary Embolism Present on Admission: No
[2018-10-27] MEDS: PANTOPRAZOLE 40 MG VIAL IV SCH ×2 (08:02→17:20)
[2018-10-27] MEDS ORDERED: VANCOMYCIN 1,000 MG in 0.9 % SODIUM CHLORIDE 250 ML IV ONE (09:00)
[2018-10-27] MEDS: SEVELAMER 800 MG TABLET PO SCH ×3 (09:19→16:56)
[2018-10-27] MEDS: ERTAPENEM 0.5 GM in 0.9 % SODIUM CHLORIDE 50 ML IV SCH (09:21)
[2018-10-27] MEDS: HEPARIN 5,000 UNIT/ML VIAL SQ SCH ×2 (09:22→21:08)
--- NOTE | 2018-10-27 10:38 | Cat Scan Report ---
CLINICAL INFORMATION: History of advanced cervical carcinoma. Restaging. 8.5 cm cavitating mass in the former region of the cervix/lower uterus encasing both distal ureters previously resulting in hydronephrosis. Bilateral ureteral stents in place which are functional. COMPARISON: Whole-body CT PET from 09/05/2018 and abdomen/pelvic CT 08/22/2018. TECHNIQUE: Enteric contrast was utilized. 0.625 mm helical slices were obtained from the mid heart through the subtrochanteric regions. Following reconstruction, 2.5 mm sagittal, coronal and axial reformatted images were processed and reviewed at bone and soft tissue windows.The exam was performed using radiation dose optimization techniques including, but not limited to, automated exposure control, adjustment of the mA and/or kV according to patient size and use of iterative reconstruction technique. FINDINGS: Lung bases show moderate subsegmental atelectasis in both inferior lower lobes new from the previous CT. Small left pleural effusion as developed. The visualized heart is grossly normal in size and configuration. Images through the abdomen show an extremely vague 3 cm bilobed low-attenuation lesion in the lateral segment left hepatic lobe (image 32) disease. This corresponds with a hypermetabolic region on PET and is compatible with metastases. It is unchanged. Other known hepatic metastases, on prior CT/PET scan, are not visualized on this noncontrast abdomen CT.The gallbladder and bile ducts, both adrenal glands, spleen and pancreas are normal in size, configuration and attenuation without focal lesion. Bilateral ureteral stents are in place: superior pigtails overlying the superior calyces of both kidneys. The inferior pigtails are probably positioned within the urinary bladder lumen. The upper collecting and ureters are now normal without evidence of recurrent hydronephrosis. Mild atrophy of the right kidney (9 cm in length) with normal sized left kidney (11 cm in length) is seen as before. No focal renal lesions. Images of the pelvis again show a large (8.4 x 4 cm) thick-walled cavitating mass in the former region of this cervix and lower uterus. The mass encases both distal ureters which contain stents. It extends to both the posterior wall of urinary bladder and the anterior wall of the rectum. Neither structure and be from the mass indicating probable invasion, although, this cannot be ascertained with absolute certainty. There is marked concentric wall thickening of the distal sigmoid colon and rectum spanning approximately 15 cm. This is new from a comparison CT two months prior 08/22/2018 and could indicate neoplastic infiltration, colitis or postradiation fibrosis. A Ellis catheter is in satisfactory position urinary bladder which contains a moderate amount of air. A 14 mm nodule is seen in the mesenteric fat of the right lower quadrant (axial image 116) is unchanged in size. This demonstrate increased FDG activity on PET scan compatible with a metastatic mesenteric deposit or lymph node. It is unchanged in size from the previous CT. There are no new or other enlarging nodules within the omentum or mesentery. Ventral hernia in the right periumbilical region spans 5.5 cm contains nonincarcerated small bowel. It is slightly smaller than previously seen. Small amount of edema in the hernia sac wall is seen as before. A 4.3 cm focal region of soft tissue thickening in the anterior abdominal wall near midline - infraumbilical region is slightly larger. This demonstrate increased FDG uptake on PET and may be a metastatic deposit. The stomach, remainder of the small bowel and the remainder of the colon are unremarkable. No free air or free fluid. Bone windows show no metastases or other focal osseous abnormality. IMPRESSION: 1. 8.4 x 4 cm cavitating mass in the former region of the cervix and lower uterus which show slight increase in size. Previously, was 8.2 x 3.8 cm. The mass encases both distal ureters which are satisfactorily stented. The mass also extends to the posterior urinary bladder wall and the anterior rectal wall - there is no fat plane and, presumably, the mass has invaded both of these structures. The mass also demonstrates increased FDG uptake on PET less than two months prior 09/05/2018. It is likely recurrent cervical tumor but the possibility of abscess is not completely excluded. Consider: CT-guided biopsy. If infected, a drain could be concomitantly placed. 2. 14 mm nodule in the mesenteric fat of the right false pelvis which demonstrated increased uptake on PET scan 09/05/2018. It is likely a mesenteric metastatic deposit. 3. Vague 3 m low-attenuation lesion in lateral segment of the left hepatic lobe is unchanged. This also demonstrates increased uptake on PET scanning is, presumably, a liver metastases. Other known hepatic metastases, seen on CT PET, are not visualized on this noncontrast abdominal CT 4. 4.3 cm region of focal soft tissue thickening in the anterior abdominal wall near midline (infraumbilical region (which show slight increase in size and also demonstrates increased uptake on prior PET scan. This could be metastatic deposit versus postsurgical inflammation. 5. Recent replacement of both ureteral stents which are in satisfactory position. Hydronephrosis has resolved implying that both stents are functional. 6. Moderate concentric wall thickening of the distal sigmoid colon and rectum - new from CT two months prior. Suspect postradiation fibrosis. Neoplastic infiltration or colitis, are possible, but less likely. Consider colonoscopy Interpreted and Authenticated by: Mark Patricia 10/27/18
[2018-10-28] MEDS: HYDROmorphone 2 MG/ML VIAL IV PRN ×7 (00:09→23:38)
[2018-10-28] MEDS: oxyCODONE HCL 5 MG TABLET PO PRN ×3 (04:13→16:59)
[2018-10-28] MEDS: metroNIDAZOLE 500 MG TABLET PO SCH (04:47)
[2018-10-28] MEDS: 0.9 % SODIUM CHLORIDE 10 ML SYRINGE IV SCH ×5 (04:47→20:54)
[2018-10-28 05:57] LABS: Basophils # (Auto) 0 K/mcL (0.0-0.3); Basophils % (Auto) 0.3 % (0.0-2.0); Eosinophils # (Auto) 0.2 K/mcL (0.0-0.7); Eosinophils % (Auto) 2.6 % (0.0-7.0); Granulocytes % (Auto) 64.5 % (38.0-78.0); Lymphocytes # (Auto) 1.3 K/mcL (1.5-4.8); Lymphocytes % (Auto) 20.7 % (15.5-49.0); Mean Cell Volume 89.3 fL (80.0-100.0); Mean Corpuscular HGB Conc 33.3 g/dL (31.0-36.0); Monocytes # (Auto) 0.8 K/mcL (0.1-0.9); Monocytes % (Auto) 11.9 % (1.0-12.0); Platelet Count 258 K/mcL (140-440); RBC 2.82 M/mcL (4.00-5.20); Red Cell Distribution Width 13.8 % (11.5-14.5)
[2018-10-28 06:30] LABS: ALT/SGPT 20 U/l (0-40); Albumin 3.1 gm/dL (3.2-5.2); Alkaline Phosphatase 112 U/L (39-117); Bilirubin,Direct < 0.2 mg/dL (0.0-0.3); Blood Urea Nitrogen 44 mg/dl (6-20); Gamma Glutamyl Transpeptidase 93 U/L (5-36); Uric Acid 6.2 mg/dL (2.5-8.0)
[2018-10-28] MEDS ORDERED: MAGNESIUM SULFATE 8.12 MEQ in DEXTROSE 5% IN WATER 50 ML IV ONE (07:14)
--- NOTE | 2018-10-28 07:16 | Internal Med Progress Note ---
Medical - PN: Subj Patient information: Note initiated : 10/28/18 at 7:13 am Service Date, if different from initiated Date: [] Patient: Leonor Thompson a 43 y/o F admitted on 10/24/18 for kidney problems. Chief Complaint: [] Interval history: Ms. Thompson is a 43 year old F with history of metastatic cervical cancer, presently not pursuing treatment presents to the emergency room for evaluation of abnormal labs. This is a pleasant 43-year-old female who was admitted to this facility a few months ago and was diagnosed with postobstructive renal failure. At that point in time stents were placed and the kidney function improved but was never normal. She has been followed by Dr. Branch and Dr. Clemens in the clinic. For the last few months the patient has reported that she has had no good appetite, she has been taking some milk and some clementines. Over the last 2- 3 days her condition worsened significantly and she felt weak fatigued and tired cold. She went to see urgent care physician at [facility] today and blood work showed worsening renal function and she was asked to come to the hospital for further management. The patient denies any headache changes in vision difficulty in swallowing, admits to some nausea and decreased appetite denies any cough chest pain shortness of breath but is fatigued on ambulation. She has abdominal pain that was also concerning in the left lower quadrant that started a few days ago which also contributed her going to the urgent care center today. The patient is incontinent to urine. The pain in the abdomen is worse with movement better with rest and some pain meds. She denies any blood in the stools denies any new joint pains or skin rashes. In the emergency room on presentation patient was afebrile temperature 97.8 heart rate 92 blood pressure 148 x 92 saturating 100% on room air. Labs show hemoglobin of 8.4 WBC 7.6 lactic acid 0.7 platelets 227. Sodium 133 potassium 6.4 bicarbonate 14 chloride 97 BUN 107 creatinine 9.6 glucose 80 Urine dip positive for nitrite and leukocyte esterase. ABG shows pH of 7.31 PCO2 628 PO2 90 on room air Patient had a renal ultrasound, KUB CT done. Nephrology and neurology have been consulted. EKG shows sinus tachycardia with low voltage chest x-ray shows no acute infiltrates. Patient is being admitted to the hospital for further management, patient wishes DNR status 10/25 Patient seen and examined, overnight had significant nausea and vomiting. She also had some diarrhea due to Kayexalate. Blood cultures positive aerobic and anaerobic bottle gram variable bacteria at this time IV vancomycin and IV ertapenum ordered. Pt has h/o allergy to penicillin, test dose of ertapenum 0.1ml ID given, in 20-30 mins, no itching, ho increased size of the wheal noted. I believe she should be able to tolerate this medication well d/c cipro Stents exchanged by Dr Branch. Renal function still abnormal, but potassium is better d/c bicarb drip. 10/26 Patient seen examined appetite returning blood cultures still has gram variable rods Plan to get CT with oral contrast to r/o any invasion of bowels by cervical cancer creat trending down, K stable pt still has diarrhea. 10/27 Slept well. Better appetite. CT abdomen pelvis with 8 x 3 cm cervical mass juxtaposed to the posterior wall of the bladder and to the wall of the rectum unable to determine if there is invasion into those tissues. Overall feeling better. Diarrhea improving. Had a discussion about her regarding her cervical cancer. She has had chemoradiation surgery in the past. Found to have recurrence but did not want any further treatment. She did have a PET scan in August which showed liver lesions. Again she does not want to pursue any treatment and understands that it is terminal without treatment. 10/28 Has occasional nausea. Has some emesis yesterday but none overnight or this morning. Slept well. No other new complaints. Review of Systems: denies headache/fever/chills/chest or abdominal pain/cough/dyspnea. Otherwise see above. - Constitutional Vitals: Vital Signs Temp Pulse Resp BP Pulse Ox 99.1 F H 70 18 133/91 96 10/28/18 00:30 10/27/18 21:47 10/28/18 00:30 10/28/18 00:30 10/28/18 00:30 Period Temp Pulse Resp BP Sys/Harris Pulse Ox Last 24 Hr 98.4 F-99.1 F 66-70 18-20 109-144/81-101 93-98 Intake and Output 10/27/18 10/28/18 10/28/18 21:59 05:59 13:59 Intake Total 680 / 680 100 / 100 Output Total 725 / 725 425 / 425 Balance -45 / -45 -325 / -325 Weight 78.018 kg Intake & Output: Intake & Output 10/27/18 10/28/18 10/28/18 21:59 05:59 13:59 Intake Total 680 / 680 100 / 100 Output Total 725 / 725 425 / 425 Balance -45 / -45 -325 / -325 Weight 78.018 kg Intake: Oral 680 / 680 100 / 100 Output: Urine Catheter Amount 725 / 725 425 / 425 Other: Meal snack Percent of Meal Consumed 100% Feeding Ability Assist with Tray Set Up Urine Appearance Clear Clear Urine Color Bright Yellow Bright Yellow Urine Odor Strong Normal # Bowel Movements 1 Exam: General: Alert, Awake, No acute Distress Eyes/N/T: EOMI, Head/Neck: neck supple, CV: RRR, No murmurs, Pulm: Clear b/l, no wheezing/rhonchi/rales Abd: soft, nontender, +BS x4 Ext: no clubbing/cyanosis/edema Neuro: Alert, no focal deficits, moves all extremities, Skin: warm/dry Medical - PN: Obj Da - Labs CBC & Chem 7: 10/28/18 04:00 10/28/18 04:00 Labs: Abnormal Lab Results 10/28/18 10/28/18 10/27/18 04:00 04:00 04:00 RBC 2.82 L Hgb 8.4 L Hct 25.2 L RDW Gran % Lymph % (Auto) Lymph # (Auto) 1.3 L PT INR Potassium 3.2 L Anion Gap BUN 44 H 60 H Creatinine 3.6 H 5.1 H* Glucose Uric Acid Calcium 8.5 L 8.4 L Phosphorus Magnesium 1.4 L 1.5 L TIBC Unsat Iron Binding Transferrin % Sat Ferritin GGT 93 H 94 H Alkaline Phosphatase Albumin 3.1 L 3.0 L Albumin/Globulin Ratio Triglycerides 164 H 167 H 10/27/18 10/26/18 10/26/18 04:00 09:25 04:00 RBC 2.68 L Hgb 8.1 L Hct 23.8 L RDW Gran % Lymph % (Auto) Lymph # (Auto) PT INR Potassium Anion Gap BUN 80 H Creatinine 6.9 H* Glucose 132 H Uric Acid 8.7 H Calcium Phosphorus 6.3 H* Magnesium TIBC 139 L Unsat Iron Binding 61 L Transferrin % Sat 56 H Ferritin 725.9 H GGT 91 H Alkaline Phosphatase 125 H Albumin Albumin/Globulin Ratio Triglycerides 10/26/18 10/25/18 10/25/18 04:00 06:47 04:00 RBC 2.52 L Hgb 7.6 L Hct 22.3 L RDW 14.6 H Gran % 88.7 H Lymph % (Auto) 5.2 L Lymph # (Auto) 0.4 L PT 15.9 H INR 1.3 H Potassium Anion Gap 19.0 H BUN 101 H* Creatinine 9.0 H* Glucose 112 H Uric Acid 9.0 H Calcium Phosphorus 6.1 H* Magnesium TIBC Unsat Iron Binding Transferrin % Sat Ferritin GGT 91 H Alkaline Phosphatase 131 H Albumin 2.8 L Albumin/Globulin Ratio 0.9 L Triglycerides Meds: Medications Acetaminophen (Tylenol) 650 mg PO Q4-6HP PRN PRN Reason: PAIN/FEVER > 101 Docusate Sodium (Colace) 100 mg PO DAILYP PRN PRN Reason: Constipation Heparin Sodium (Porcine) (Heparin Flush) 5 ml IV Q12 [facility] Last Admin: 10/27/18 21:08 Dose: 5 ml Heparin Sodium (Porcine) (Heparin) 5,000 unit SQ Q12 [facility] Last Admin: 10/27/18 21:08 Dose: 5,000 unit Hydromorphone HCl (Dilaudid) 0.5 mg IV Q2HP PRN PRN Reason: PAIN LEVEL > 6 Last Admin: 10/28/18 00:09 Dose: 0.5 mg Ertapenem 0.5 gm/ Sodium (Chloride) 50 mls @ 100 mls/hr IV Q24H [facility] Last Infusion: 10/27/18 09:51 Dose: Infused Metronidazole (Flagyl) 500 mg PO Q8 [facility] Last Admin: 10/28/18 04:47 Dose: 500 mg Naloxone HCl (Narcan) 0.1 mg IV Q2MIN PRN PRN Reason: Opiate Reversal Ondansetron HCl (Zofran) 4 mg IV Q4-6HP PRN PRN Reason: Nausea And Vomiting Oxycodone HCl (Roxicodone) 10 mg PO Q4HP PRN PRN Reason: Pain Last Admin: 10/28/18 04:13 Dose: 10 mg Pantoprazole Sodium (Protonix) 40 mg IV BIDAC [facility] Last Admin: 10/27/18 17:20 Dose: 40 mg Promethazine HCl (Phenergan) 12.5 mg IV Q4-6HP PRN PRN Reason: Nausea And Vomiting Sevelamer Carbonate (Renvela) 1,600 mg PO TIDCC [facility] Last Admin: 10/27/18 16:56 Dose: 1,600 mg Sodium Chloride (Saline Flush) 10 ml IV Q8 [facility] Last Admin: 10/28/18 04:47 Dose: 10 ml Sodium Chloride (Saline Flush) 10 ml IV Q12 [facility] Last Admin: 10/27/18 21:07 Dose: 10 ml Medical - PN: A/P - Time Spent With Patient Total time spent is greater than 50% in coordination of care (as documented) at patient's floor/unit and/or counseling patient: - Narrative A/P Narrative: A: *Acute on Chronic Renal failure: due to cervical cancer, stent blockage? -s/p stent exchange (10/25) by Dr Branch, pt has good urine output, -Creat is now trending down *Metabolic Acidosis: NAGMA and HGAMA (due to renal failure): resolved *Urinary tract infection: UC no growth *Bactermia (Clostridium ramosum): source Enteric? -?is the cervical cancer invading bowel/bladder wall? -CT a/p shows large 8x3 cavitating mass juxtaposed to posterior wall of bladder & anterior wall of rectum, "no fat plane and, presumably, the mass has invaded both of these structures." *Sepsis: resolving *Cervical CA found in 2016, with recurrence: Has had surgery/chemo/radiation in the past and then found to have recurrence but does not want to pursue any treatment. Did have PET in august showing new liver lesions -Understands that this is terminal without treatment -Follows with Dr. Calderon in [place] for oncology *Anemia of chr disease: stable *Hyperkalemia: resolved P: -Nephrology following -Urology -Ertapenem/PO flagyl -ID consult - -ppx: hep sq DNR code status. Medical - PN: Qual - VTE Deep Vein Thrombosis/Pulmonary Embolism Present on Admission: No
[2018-10-28] MEDS: ONDANSETRON 4 MG/2 ML VIAL IV PRN (08:06)
[2018-10-28] MEDS: PANTOPRAZOLE 40 MG VIAL IV SCH ×2 (08:07→17:01)
[2018-10-28] MEDS: SEVELAMER 800 MG TABLET PO SCH ×3 (08:25→16:59)
[2018-10-28] MEDS: HEPARIN 5,000 UNIT/ML VIAL SQ SCH ×2 (08:28→20:53)
[2018-10-28] MEDS: ERTAPENEM 0.5 GM in 0.9 % SODIUM CHLORIDE 50 ML IV SCH (10:07)
--- NOTE | 2018-10-28 13:58 | Nephrology Progress Note ---
Subjective Patient information: Note initiated : 10/28/18 at 1:56 pm Service Date, if different from initiated Date: [] Patient: Leonor Thompson 43 y/o F admitted on 10/24/18 for kidney problems. Chief Complaint: [] Principal diagnosis: acute renal failure Interval history: denies any new symptoms occ nausea appetite a little better diarrhea has improved some but still present no SOB, CP no edema improving renal function s/p stent placement ID consult pending for clostridium ramosum bacteremia Pertinent ROS: as above Objective - Vital Signs Vital signs: Vital Signs Temp Pulse Resp BP BP Pulse Ox 10/28/18 12:00 98.6 F 20 117/92 97 10/28/18 00:30 99.1 F H 18 133/91 96 10/27/18 21:47 70 144/101 97 10/27/18 21:46 99.0 F 66 20 144/101 96 10/27/18 20:23 97 10/27/18 15:49 98.4 F 20 133/96 93 Intake and Output 10/27/18 10/28/18 10/28/18 21:59 05:59 13:59 Intake Total 680 / 680 100 / 100 52 / 52 Output Total 725 / 725 425 / 425 Balance -45 / -45 -325 / -325 52 / 52 Intake: IV 52 / 52 Oral 680 / 680 100 / 100 Output: Urine Catheter Amount 725 / 725 425 / 425 Other: Meal snack Percent of Meal Consumed 100% Feeding Ability Assist with Tray Set Up Urine Appearance Clear Clear Clear Urine Color Bright Yellow Bright Yellow Bright Yellow Urine Odor Strong Normal # Bowel Movements 1 Weight 172 lb Intake & Output: Intake & Output 10/27/18 10/28/18 10/28/18 21:59 05:59 13:59 Intake Total 680 / 680 100 / 100 52 / 52 Output Total 725 / 725 425 / 425 Balance -45 / -45 -325 / -325 / 52 Weight 172 lb Intake: IV 52 / 52 Oral 680 / 680 100 / 100 Output: Urine Catheter Amount 725 / 725 425 / 425 Other: Meal snack Percent of Meal Consumed 100% Feeding Ability Assist with Tray Set Up Urine Appearance Clear Clear Clear Urine Color Bright Yellow Bright Yellow Bright Yellow Urine Odor Strong Normal # Bowel Movements 1 - General Appearance General appearance: appears started age, frail EENT: mucous membranes moist Neck: no JVD Respiratory: clear Cardiology: no rub, no edema, regular rate, regular rhythm Gastrointestinal: tenderness, no guarding, no masses Integumentary: warm and dry Neurologic: alert and oriented x3 Musculoskeletal: no deformities, no erythema Psychiatric: mood/affect appropriate - Lab 10/28/18 04:00 10/28/18 04:00 Most recent lab results Calcium 8.5 mg/dl (8.6-10.4) L 10/28/18 04:00 Phosphorus 4.3 mg/dL (2.7-4.5) 10/28/18 04:00 Magnesium 1.4 mg/dL (1.6-2.5) L 10/28/18 04:00 Assessment and Plan (1) Acute renal failure Status: Acute Priority: High (2) Hyperkalemia Status: Acute Priority: High (3) Metabolic acidosis Status: Acute Priority: High (4) Anemia Status: Acute - Narrative A/P Narrative: renal function is slowly improving s/p stent placement s.creatinine today at 3.6, egfr of 15ml/min per CKD EPI equation s/p fluid excess K has improved to 3.3 no acidosis Hb is stable improved hyperphosphatemia resolved labs discussed with the patient reassured, likely will not need HD advised to ensure adequate hydration please dose meds to egfr avoid nephrotoxic medications If phos remains normal will d/c sevelamer Will follow along
--- NOTE | 2018-10-28 19:21 | Infectious Disease Consult ---
History of Present Illness Patient information: Note initiated : 10/28/18 at 7:20 pm Service Date, if different from initiated Date: [] Patient: Leonor Thompson 43 y/o F admitted on 10/24/18 for kidney problems. 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 She has lost appetite and had been on milk and oranges. Due to development of extreme fatigue, she went to [facility] from where she was transferred to [facility]. Pt endorsed left sided belly pain which had peter going on for last few days along with stool incontinence. In the emergency room on presentation patient was afebrile temperature 97.8 heart rate 92 blood pressure 148 x 92 saturating 100% on room air. Labs show hemoglobin of 8.4 WBC 7.6 lactic acid 0.7 platelets 227. Sodium 133 potassium 6.4 bicarbonate 14 chloride 97 BUN 107 creatinine 9.6 glucose 80 Urine dip positive for nitrite and leukocyte esterase. ABG shows pH of 7.31 PCO2 628 PO2 [address] abd/pelvis done on 10/26 showed about 8 cm mass arising from cervix and invading anterior rectum and bladder wall, along wtih mets. Blood Cx sent on 10/25 grew Clostridium ramosum in 2/2 sets. Pt was initially started on IV Vanc and IV Ertapenem and PO Metronidazole which was changed to IV Ertapenem only. At time of visit, pt conformed above Hx. She and her mentioned that they are not considering any chemo or radiation option at this point, but would like to keep her port as it prevents her from being stuck for blood draws. She expressed feeling better after being on antibiotics for last few days. Past History Past medical history: per HPI Past family history: mother had breast cancer, in remission Past social history: lives with her Medications and Allergies Home Medications Medication Instructions Recorded Confirmed Type Acetaminophen [Pain Reliever] 500 mg PO PRN PRN 05/28/18 10/24/18 History docusate sodium 100 mg capsule 100 mg PO QDAY PRN 08/06/18 10/24/18 History oxycodone 10 mg tablet 10 mg PO Q4H tab 08/06/18 10/24/18 History Promethazine [Phenergan] 25 mg PO Q6HP PRN #20 tab 08/22/18 10/24/18 Rx tamsulosin 0.4 mg capsule 0.4 mg PO QDAY #30 cap 10/08/18 10/24/18 Rx Allergies Allergy/AdvReac Type Severity Reaction Status Date / Time Penicillins Allergy Severe Anaphylaxis Verified 10/08/18 07:57 Physical Examination Vital signs: Temp Pulse Resp BP Pulse Ox 36.7 C 70 20 128/91 97 10/28/18 16:00 10/27/18 21:47 10/28/18 16:00 10/28/18 16:00 10/28/18 16:00 General appearance: no acute distress Eyes pulmonary: nonicteric Auscultation: bilateral: clear Cardiovascular: regular rate and rhythm Gastrointestinal: normoactive bowel sounds, non-tender Integumentary: normal Extremities: no edema Rt chest wall port: no signs of inflammation, non tender Results - Laboratory Findings CBC and BMP: 10/28/18 04:00 10/29/18 03:45 PT/INR, D-dimer PT 15.9 sec (11.9-14.5) H 10/25/18 06:47 INR 1.3 (0.9-1.1) H 10/25/18 06:47 Abnormal lab findings: Abnormal Labs 10/24/18 10/24/18 10/24/18 11:30 11:30 16:00 RBC 2.77 L Hgb 8.4 L Hct 24.4 L RDW Gran % 82.9 H Lymph % (Auto) 6.2 L [place] % (Auto) Lymph # (Auto) 0.5 L PT INR Sodium Potassium 6.4 H* 5.6 H Chloride Carbon Dioxide 14 L 15 L Anion Gap 22.0 H 19.0 H BUN 107 H* 105 H* Creatinine 9.6 H* 9.3 H* Glucose Uric Acid Calcium Phosphorus Magnesium TIBC Unsat Iron Binding Transferrin % Sat Ferritin GGT Alkaline Phosphatase 146 H Albumin Albumin/Globulin Ratio Triglycerides Urine Protein Urine Occult Blood Ur Leukocyte Esterase Urine RBC Urine WBC Ur Squamous Epith Cells Calcium Oxalate Crystal Amorphous Crystals Urine Mucus 10/24/18 10/24/18 10/25/18 17:00 22:00 04:00 RBC 2.41 L Hgb 7.2 L Hct 21.4 L RDW Gran % Lymph % (Auto) 9.0 L [place] % (Auto) 13.6 H Lymph # (Auto) 0.5 L PT INR Sodium 132 L Potassium 5.2 H Chloride 94 L Carbon Dioxide 21 L Anion Gap 17.0 H BUN 105 H* Creatinine 9.2 H* Glucose 157 H Uric Acid Calcium Phosphorus Magnesium TIBC Unsat Iron Binding Transferrin % Sat Ferritin GGT Alkaline Phosphatase Albumin Albumin/Globulin Ratio Triglycerides Urine Protein 100 A Urine Occult Blood >=1.0 A Ur Leukocyte Esterase 75 A Urine RBC > 182 H Urine WBC > 182 H Ur Squamous Epith Cells 9 H Calcium Oxalate Crystal Many A Amorphous Crystals Many A Urine Mucus Many A 10/25/18 10/25/18 10/26/18 04:00 06:47 04:00 RBC 2.52 L Hgb 7.6 L Hct 22.3 L RDW 14.6 H Gran % 88.7 H Lymph % (Auto) 5.2 L [place] % (Auto) Lymph # (Auto) 0.4 L PT 15.9 H INR 1.3 H Sodium Potassium Chloride Carbon Dioxide Anion Gap 19.0 H BUN 101 H* Creatinine 9.0 H* Glucose 112 H Uric Acid 9.0 H Calcium Phosphorus 6.1 H* Magnesium TIBC Unsat Iron Binding Transferrin % Sat Ferritin GGT 91 H Alkaline Phosphatase 131 H Albumin 2.8 L Albumin/Globulin Ratio 0.9 L Triglycerides Urine Protein Urine Occult Blood Ur Leukocyte Esterase Urine RBC Urine WBC Ur Squamous Epith Cells Calcium Oxalate Crystal Amorphous Crystals Urine Mucus 10/26/18 10/26/18 10/27/18 04:00 09:25 04:00 RBC 2.68 L Hgb 8.1 L Hct 23.8 L RDW Gran % Lymph % (Auto) [place] % (Auto) Lymph # (Auto) PT INR Sodium Potassium Chloride Carbon Dioxide Anion Gap BUN 80 H Creatinine 6.9 H* Glucose 132 H Uric Acid 8.7 H Calcium Phosphorus 6.3 H* Magnesium TIBC 139 L Unsat Iron Binding 61 L Transferrin % Sat 56 H Ferritin 725.9 H GGT 91 H Alkaline Phosphatase 125 H Albumin Albumin/Globulin Ratio Triglycerides Urine Protein Urine Occult Blood Ur Leukocyte Esterase Urine RBC Urine WBC Ur Squamous Epith Cells Calcium Oxalate Crystal Amorphous Crystals Urine Mucus 10/27/18 10/28/18 10/28/18 04:00 04:00 04:00 RBC 2.82 L Hgb 8.4 L Hct 25.2 L RDW Gran % Lymph % (Auto) [place] % (Auto) Lymph # (Auto) 1.3 L PT INR Sodium Potassium 3.2 L Chloride Carbon Dioxide Anion Gap BUN 60 H 44 H Creatinine 5.1 H* 3.6 H Glucose Uric Acid Calcium 8.4 L 8.5 L Phosphorus Magnesium 1.5 L 1.4 L TIBC Unsat Iron Binding Transferrin % Sat Ferritin GGT 94 H 93 H Alkaline Phosphatase Albumin 3.0 L 3.1 L Albumin/Globulin Ratio Triglycerides 167 H 164 H Urine Protein Urine Occult Blood Ur Leukocyte Esterase Urine RBC Urine WBC Ur Squamous Epith Cells Calcium Oxalate Crystal Amorphous Crystals Urine Mucus Microbiology: Microbiology 10/26/18 14:44 Stool C. difficile GDH Antigen & Toxins - Final 10/24/18 16:21 Blood Blood Culture - Preliminary Clostridium ramosum 10/24/18 16:10 Blood Blood Culture - Preliminary Clostridium ramosum 10/24/18 12:20 Urine - Clean Void Mid-Stream Urine Culture - Final 10/24/18 15:05 Nose MRSA (PCR) - Final - Diagnostic Findings Additional studies: 10/26/18 CT abd/pelvis significant for a 8.4 x 4 cm cavitating mass in the former region of the cervix and lower uterus which show slight increase in size. Previously, was 8.2 x 3.8 cm. The mass encases both distal ureters which are satisfactorily stented. The mass also extends to the posterior urinary bladder wall and the anterior rectal wall - there is no fat plane and, presumably, the mass has invaded both of these structures. IN addition, findings of metastatic disease inv liver, ant abd wall. Assessment and Plan - Narrative A/P Narrative: A: 1. Clostridium ramosum bacteremia: - likely source is invasion of local GI tract by metastatic cervical cancer - pt understands why it happened and that such bacteremia might happen again as the cancer is invading the rectum (thus predisposing to bacterial translocation into bloodstream) 2. Metastatic cervical Ca 3. Hx of severe penicillin allergy when 6 years old: pt had facial and throat swelling Recommendations: - Stop oral Metronidazole - Continue IV Ertapenem 0.5 mg q24 (based on Cr Clearance) with plan to switch to 500 mg PO Metronidazole q8 hrs at discharge to complete a total of 14 days of therapy (stop date11/11/18) - Per discussion with patient and her , no plans for pre-emptive prophylaxis for preventing bacteremia due to enteric bacteria in future will follow Cale Barber MD Infectious diseases
[2018-10-29] MEDS: HYDROmorphone 2 MG/ML VIAL IV PRN ×3 (03:37→08:29)
[2018-10-29] MEDS: 0.9 % SODIUM CHLORIDE 10 ML SYRINGE IV SCH ×5 (06:00→21:01)
[2018-10-29 06:34] LABS: ALT/SGPT 21 U/l (0-40); Albumin 3.1 gm/dL (3.2-5.2); Alkaline Phosphatase 126 U/L (39-117); Bilirubin,Direct < 0.2 mg/dL (0.0-0.3); Blood Urea Nitrogen 35 mg/dl (6-20); Gamma Glutamyl Transpeptidase 116 U/L (5-36); Uric Acid 5.5 mg/dL (2.5-8.0)
--- NOTE | 2018-10-29 06:59 | Internal Med Progress Note ---
Medical - PN: Subj Patient information: Note initiated : 10/29/18 at 6:56 am Service Date, if different from initiated Date: [] Patient: Leonor Thompson a 43 y/o F admitted on 10/24/18 for kidney problems. Chief Complaint: [] Interval history: Ms. Thompson is a 43 year old F with history of metastatic cervical cancer, presently not pursuing treatment presents to the emergency room for evaluation of abnormal labs. This is a pleasant 43-year-old female who was admitted to this facility a few months ago and was diagnosed with postobstructive renal failure. At that point in time stents were placed and the kidney function improved but was never normal. She has been followed by Dr. Branch and Dr. Clemens in the clinic. For the last few months the patient has reported that she has had no good appetite, she has been taking some milk and some clementines. Over the last 2- 3 days her condition worsened significantly and she felt weak fatigued and tired cold. She went to see urgent care physician at [facility] today and blood work showed worsening renal function and she was asked to come to the hospital for further management. The patient denies any headache changes in vision difficulty in swallowing, admits to some nausea and decreased appetite denies any cough chest pain shortness of breath but is fatigued on ambulation. She has abdominal pain that was also concerning in the left lower quadrant that started a few days ago which also contributed her going to the urgent care center today. The patient is incontinent to urine. The pain in the abdomen is worse with movement better with rest and some pain meds. She denies any blood in the stools denies any new joint pains or skin rashes. In the emergency room on presentation patient was afebrile temperature 97.8 heart rate 92 blood pressure 148 x 92 saturating 100% on room air. Labs show hemoglobin of 8.4 WBC 7.6 lactic acid 0.7 platelets 227. Sodium 133 potassium 6.4 bicarbonate 14 chloride 97 BUN 107 creatinine 9.6 glucose 80 Urine dip positive for nitrite and leukocyte esterase. ABG shows pH of 7.31 PCO2 628 PO2 90 on room air Patient had a renal ultrasound, KUB CT done. Nephrology and neurology have been consulted. EKG shows sinus tachycardia with low voltage chest x-ray shows no acute infiltrates. Patient is being admitted to the hospital for further management, patient wishes DNR status 10/25 Patient seen and examined, overnight had significant nausea and vomiting. She also had some diarrhea due to Kayexalate. Blood cultures positive aerobic and anaerobic bottle gram variable bacteria at this time IV vancomycin and IV ertapenum ordered. Pt has h/o allergy to penicillin, test dose of ertapenum 0.1ml ID given, in 20-30 mins, no itching, ho increased size of the wheal noted. I believe she should be able to tolerate this medication well d/c cipro Stents exchanged by Dr Branch. Renal function still abnormal, but potassium is better d/c bicarb drip. 10/26 Patient seen examined appetite returning blood cultures still has gram variable rods Plan to get CT with oral contrast to r/o any invasion of bowels by cervical cancer creat trending down, K stable pt still has diarrhea. 10/27 Slept well. Better appetite. CT abdomen pelvis with 8 x 3 cm cervical mass juxtaposed to the posterior wall of the bladder and to the wall of the rectum unable to determine if there is invasion into those tissues. Overall feeling better. Diarrhea improving. Had a discussion about her regarding her cervical cancer. She has had chemoradiation surgery in the past. Found to have recurrence but did not want any further treatment. She did have a PET scan in August which showed liver lesions. Again she does not want to pursue any treatment and understands that it is terminal without treatment. 10/28 Has occasional nausea. Has some emesis yesterday but none overnight or this morning. Slept well. No other new complaints. 10/29 Little bit of nausea this morning that is typical for her. No vomiting otherwise feeling well. Review of Systems: denies headache/fever/chills/chest or abdominal pain/cough/dyspnea. Otherwise see above. - Constitutional Vitals: Vital Signs Temp Pulse Resp BP Pulse Ox 97.9 F 74 16 121/93 97 10/29/18 03:55 10/28/18 23:35 10/29/18 03:55 10/29/18 03:55 10/29/18 03:55 Period Temp Pulse Resp BP Sys/Harris Pulse Ox Last 24 Hr 97.9 F-99.4 F 71-74 16-20 117-134/71-96 86-98 Intake and Output 10/28/18 10/29/18 10/29/18 21:59 05:59 13:59 Intake Total 780 / 780 230 / 230 Output Total 500 / 500 350 / 350 Balance 280 / 280 -120 / -120 Weight 78.018 kg Intake & Output: Intake & Output 10/28/18 10/29/18 10/29/18 21:59 05:59 13:59 Intake Total 780 / 780 230 / 230 Output Total 500 / 500 350 / 350 Balance 280 / 280 -120 / -120 Weight 78.018 kg Intake: Oral 780 / 780 230 / 230 Output: Urine Catheter Amount 500 / 500 350 / 350 Other: Meal snack Apple [place] Percent of Meal Consumed 50% 50% Feeding Ability Assist with Tray Set Up Independent Urine Appearance Clear Clear Uretheral (Ellis) Clear Urine Color Straw Light Johnna Uretheral (Ellis) Straw Urine Odor Normal # Bowel Movements 1 # of times incontinent of 1 Bowels Exam: General: Alert, Awake, No acute Distress Eyes/N/T: EOMI, Head/Neck: neck supple, CV: RRR, No murmurs, Pulm: Clear b/l, no wheezing/rhonchi/rales Abd: soft, nontender, +BS x4 Ext: no clubbing/cyanosis/edema Neuro: Alert, no focal deficits, moves all extremities, Skin: warm/dry Medical - PN: Obj Da - Labs CBC & Chem 7: 10/28/18 04:00 10/29/18 03:45 Labs: Abnormal Lab Results 10/29/18 10/28/18 10/28/18 03:45 04:00 04:00 RBC 2.82 L Hgb 8.4 L Hct 25.2 L Lymph # (Auto) 1.3 L Potassium BUN 35 H 44 H Creatinine 2.8 H 3.6 H Calcium 8.5 L Magnesium 1.4 L TIBC Unsat Iron Binding Transferrin % Sat Ferritin GGT 116 H 93 H Alkaline Phosphatase 126 H Albumin 3.1 L 3.1 L Triglycerides 165 H 164 H 10/27/18 10/27/18 10/26/18 04:00 04:00 09:25 RBC 2.68 L Hgb 8.1 L Hct 23.8 L Lymph # (Auto) Potassium 3.2 L BUN 60 H Creatinine 5.1 H* Calcium 8.4 L Magnesium 1.5 L TIBC 139 L Unsat Iron Binding 61 L Transferrin % Sat 56 H Ferritin 725.9 H GGT 94 H Alkaline Phosphatase Albumin 3.0 L Triglycerides 167 H Meds: Medications Acetaminophen (Tylenol) 650 mg PO Q4-6HP PRN PRN Reason: PAIN/FEVER > 101 Docusate Sodium (Colace) 100 mg PO DAILYP PRN PRN Reason: Constipation Heparin Sodium (Porcine) (Heparin Flush) 5 ml IV Q12 [facility] Last Admin: 10/28/18 20:53 Dose: 5 ml Heparin Sodium (Porcine) (Heparin) 5,000 unit SQ Q12 [facility] Last Admin: 10/28/18 20:53 Dose: 5,000 unit Hydromorphone HCl (Dilaudid) 0.5 mg IV Q2HP PRN PRN Reason: PAIN LEVEL > 6 Last Admin: 10/29/18 06:00 Dose: 0.5 mg Ertapenem 0.5 gm/ Sodium (Chloride) 50 mls @ 100 mls/hr IV Q24H [facility] Last Infusion: 10/28/18 10:37 Dose: Infused Naloxone HCl (Narcan) 0.1 mg IV Q2MIN PRN PRN Reason: Opiate Reversal Ondansetron HCl (Zofran) 4 mg IV Q4-6HP PRN PRN Reason: Nausea And Vomiting Last Admin: 10/28/18 08:06 Dose: 4 mg Oxycodone HCl (Roxicodone) 10 mg PO Q4HP PRN PRN Reason: Pain Last Admin: 10/28/18 16:59 Dose: 10 mg Pantoprazole Sodium (Protonix) 40 mg IV BIDAC [facility] Last Admin: 10/28/18 17:01 Dose: 40 mg Promethazine HCl (Phenergan) 12.5 mg IV Q4-6HP PRN PRN Reason: Nausea And Vomiting Sevelamer Carbonate (Renvela) 1,600 mg PO TIDCC [facility] Last Admin: 10/28/18 16:59 Dose: 1,600 mg Sodium Chloride (Saline Flush) 10 ml IV Q8 [facility] Last Admin: 10/29/18 06:00 Dose: 10 ml Sodium Chloride (Saline Flush) 10 ml IV Q12 [facility] Last Admin: 10/28/18 20:54 Dose: 10 ml Medical - PN: A/P - Time Spent With Patient Total time spent is greater than 50% in coordination of care (as documented) at patient's floor/unit and/or counseling patient: - Narrative A/P Narrative: A: *Acute on Chronic Renal failure: due to cervical cancer, stent blockage? -s/p stent exchange (10/25) by Dr Branch, pt has good urine output, -Continues to Improve *Metabolic Acidosis: NAGMA and HGAMA (due to renal failure): resolved *Urinary tract infection: UC no growth *Bactermia (Clostridium ramosum): source Enteric? -?is the cervical cancer invading bowel/bladder wall? -CT a/p shows large 8x3 cavitating mass juxtaposed to posterior wall of bladder & anterior wall of rectum, "no fat plane and, presumably, the mass has invaded both of these structures." *Sepsis: resolving *Cervical CA found in 2015, with recurrence: Has had surgery/chemo/radiation in the past and then found to have recurrence but does not want to pursue any treatment. Did have PET in august showing new liver lesions -Understands that this is terminal without treatment -Follows with Dr. Calderon in [place] for oncology *Anemia of chr disease: stable *Hyperkalemia: resolved P: -Nephrology following -Urology -Ertapenem while inpt and d/c on PO flagyl for total of 14 days (stop date 11/11) -ID consult - -ppx: hep sq DNR code status. Medical - PN: Qual - VTE Deep Vein Thrombosis/Pulmonary Embolism Present on Admission: No
[2018-10-29] MEDS: PANTOPRAZOLE 40 MG VIAL IV SCH ×2 (08:30→16:36)
[2018-10-29] MEDS: ONDANSETRON 4 MG/2 ML VIAL IV PRN (08:36)
[2018-10-29] MEDS: SEVELAMER 800 MG TABLET PO SCH ×3 (08:56→16:36)
[2018-10-29] MEDS ORDERED: NYSTATIN 500,000 UNITS/5 ML ORAL.SUSP SSW SCH (09:00)
[2018-10-29] MEDS: ERTAPENEM 0.5 GM in 0.9 % SODIUM CHLORIDE 50 ML IV SCH (10:21)
[2018-10-29] MEDS: HEPARIN 5,000 UNIT/ML VIAL SQ SCH ×2 (10:21→21:02)
[2018-10-29] MEDS ORDERED: HYDROmorphone 2 MG/ML VIAL IV PRN ×2 (10:39→13:26)
[2018-10-29] MEDS ORDERED: NALOXONE HCL 0.4 MG/ML VIAL IV PRN (10:39)
[2018-10-29] MEDS ORDERED: PROMETHAZINE 25 MG/ML VIAL IV PRN (10:39)
[2018-10-29] MEDS ORDERED: ONDANSETRON 4 MG/2 ML VIAL IV PRN (10:39)
[2018-10-29] MEDS ORDERED: DOCUSATE SODIUM 100 MG CAPSULE PO PRN (10:39)
[2018-10-29] MEDS: NYSTATIN 500,000 UNITS/5 ML ORAL.SUSP SSW SCH ×3 (12:03→21:02)
--- NOTE | 2018-10-29 14:00 | Discharge Summary ---
Medical - DS: Prov Patient information: Note initiated : 10/29/18 at 1:57 pm Service Date, if different from initiated Date: [] Patient: Leonor Thompson 43 y/o F admitted on 10/24/18 for kidney problems. Chief Complaint: [] Date of admission: 10/24/18 14:48 Discharge date: 10/30/18 Primary care physician: Elsa Preston Consults: 10/24/18 Consult to Physician [CONS] Stat Comment: Consulting Provider: Clint Simms Reason For Exam: Physician to Consult Consult to Physician [CONS] Stat Comment: Consulting Provider: Danny Vizcarra Reason For Exam: Physician to Consult Consult to Physician [CONS] Stat Comment: Consulting Provider: Eric Branch Reason For Exam: Physician to Consult 10/27/18 09:13 Consult to Physician [CONS] Routine Comment: Consulting Provider: Cale Barber Reason For Exam: Physician to Consult, anaerobic bacteremia Medical - DS: Meds - Discharge Medications Prescriptions: metroNIDAZOLE [Flagyl] 500 mg PO TID #36 tab Active and Home Medications: Home Medications Acetaminophen [Pain Reliever] 500 mg PO PRN PRN 05/28/18 [History Confirmed Last Taken 05/30/18] docusate sodium 100 mg capsule 100 mg PO QDAY PRN 08/06/18 [History Confirmed Last Taken Unknown] oxycodone 10 mg tablet 10 mg PO Q4H tab 08/06/18 [History Confirmed 10/24/18 Last Taken Unknown] Promethazine [Phenergan] 25 mg PO Q6HP PRN #20 tab 08/22/18 [Rx Confirmed Last Taken Unknown] tamsulosin 0.4 mg capsule 0.4 mg PO QDAY #30 cap 10/08/18 [Rx Confirmed Last Taken Unknown] Medical - DS: Hosp Hospital course: Ms. Thompson is a 43 year old F with history of metastatic cervical cancer, presently not pursuing treatment presents to the emergency room for evaluation of abnormal labs. This is a pleasant 43-year-old female who was admitted to this facility a few months ago and was diagnosed with postobstructive renal failure. At that point in time stents were placed and the kidney function improved but was never normal. She has been followed by Dr. Branch and Dr. Clemens in the clinic. For the last few months the patient has reported that she has had no good appetite, she has been taking some milk and some clementines. Over the last 2- 3 days her condition worsened significantly and she felt weak fatigued and tired cold. She went to see urgent care physician at [facility] today and blood work showed worsening renal function and she was asked to come to the hospital for further management. The patient denies any headache changes in vision difficulty in swallowing, admits to some nausea and decreased appetite denies any cough chest pain shortness of breath but is fatigued on ambulation. She has abdominal pain that was also concerning in the left lower quadrant that started a few days ago which also contributed her going to the urgent care center today. The patient is incontinent to urine. The pain in the abdomen is worse with movement better with rest and some pain meds. She denies any blood in the stools denies any new joint pains or skin rashes. In the emergency room on presentation patient was afebrile temperature 97.8 heart rate 92 blood pressure 148 x 92 saturating 100% on room air. Labs show hemoglobin of 8.4 WBC 7.6 lactic acid 0.7 platelets 227. Sodium 133 potassium 6.4 bicarbonate 14 chloride 97 BUN 107 creatinine 9.6 glucose 80 Urine dip positive for nitrite and leukocyte esterase. ABG shows pH of 7.31 PCO2 628 PO2 90 on room air Patient had a renal ultrasound, KUB CT done. Nephrology and neurology have been consulted. EKG shows sinus tachycardia with low voltage chest x-ray shows no acute infiltrates. Patient is being admitted to the hospital for further management, patient wishes DNR status 10/25 Patient seen and examined, overnight had significant nausea and vomiting. She also had some diarrhea due to Kayexalate. Blood cultures positive aerobic and anaerobic bottle gram variable bacteria at this time IV vancomycin and IV ertapenum ordered. Pt has h/o allergy to penicillin, test dose of ertapenum 0.1ml ID given, in 20-30 mins, no itching, ho increased size of the wheal noted. I believe she should be able to tolerate this medication well d/c cipro Stents exchanged by Dr Branch. Renal function still abnormal, but potassium is better d/c bicarb drip. 10/26 Patient seen examined appetite returning blood cultures still has gram variable rods Plan to get CT with oral contrast to r/o any invasion of bowels by cervical cancer creat trending down, K stable pt still has diarrhea. 10/27 Slept well. Better appetite. CT abdomen pelvis with 8 x 3 cm cervical mass juxtaposed to the posterior wall of the bladder and to the wall of the rectum unable to determine if there is invasion into those tissues. Overall feeling better. Diarrhea improving. Had a discussion about her regarding her cervical cancer. She has had chemoradiation surgery in the past. Found to have recurrence but did not want any further treatment. She did have a PET scan in August which showed liver lesions. Again she does not want to pursue any treatment and understands that it is terminal without treatment. 10/28 Has occasional nausea. Has some emesis yesterday but none overnight or this morning. Slept well. No other new complaints. 10/29 Had some nausea this morning that is typical for her. No vomiting otherwise feeling well. 10/30 Feeling well, no issues overnight, no new complaints. Stable for discharge. Discharge diagnosis: JYOTSNA from ureteral obstruction metabolic acidosis UTI sepsis bacteremia Secondary discharge diagnosis: Cervical cancer recurrent metastatic not pursuing treatment - Time Spent with Patient Total time spent providing and/or coordinating discharge services: Greater than 30 minutes Medical - DS: Exam - Constitutional Vitals: Vital Signs Temp Pulse Pulse Resp BP BP BP 10/29/18 11:59 98.6 F 94 H 15 122/83 10/29/18 03:55 97.9 F 16 121/93 10/28/18 23:35 98.3 F 74 16 130/71 10/28/18 19:08 99.4 F H 72 16 126/89 10/28/18 18:45 71 10/28/18 16:00 98.1 F 20 128/91 10/28/18 15:23 128/91 Pulse Ox 10/29/18 11:59 93 10/29/18 03:55 97 10/28/18 23:35 98 10/28/18 19:08 96 10/28/18 18:45 96 10/28/18 16:00 97 10/28/18 15:23 Intake and Output 10/28/18 10/29/18 10/29/18 21:59 05:59 13:59 Intake Total 780 / 780 230 / 230 240 / 240 Output Total 500 / 500 350 / 350 Balance 280 / 280 -120 / -120 239 / 239 Intake: Oral 780 / 780 230 / 230 240 / 240 Output: Urine Catheter Amount 500 / 500 350 / 350 # of times incontinent of urine Other: Meal snack Apple [place] Breakfast Percent of Meal Consumed 50% 50% 75% Feeding Ability Assist with Tray Set Up Independent Urine Appearance Clear Clear Clear Uretheral (Ellis) Clear Urine Color Straw Light Johnna Uretheral (Ellis) Straw Urine Odor Normal # Bowel Movements 1 # of times incontinent of 1 Bowels Weight 78.018 kg Medical - DS: Data Labs on day of discharge: Labs from last 24 hours 10/29/18 03:45 Sodium 139 Potassium 3.6 Chloride 100 Carbon Dioxide 27 Anion Gap 12.0 BUN 35 H Creatinine 2.8 H GFR Calculation 20 Glucose 87 Uric Acid 5.5 Calcium 8.7 Phosphorus 3.8 Magnesium 1.7 Total Bilirubin 0.2 Direct Bilirubin < 0.2 GGT 116 H AST 22 ALT 21 Alkaline Phosphatase 126 H Lactate Dehydrogenase 207 Total Protein 6.2 Albumin 3.1 L Globulin 3.1 Albumin/Globulin Ratio 1.0 Triglycerides 165 H Preliminary micro results at discharge 10/28/18 04:00 Blood Culture - Preliminary Blood 10/28/18 04:40 Blood Culture - Preliminary Blood 10/24/18 16:21 Blood Culture - Preliminary Blood Clostridium ramosum 10/24/18 16:10 Blood Culture - Preliminary Blood Clostridium ramosum Medical - DS: A/P - Patient/Caregiver Discharge Instructions Activity: increase activity as tolerated Diet: Renal Prescriptions: metroNIDAZOLE [Flagyl] 500 mg PO TID #36 tab - Follow up Plan Follow up with: Elsa Preston ARNP [Primary Care Provider] - Alley Carlisle MD [Physician] - 11/06/18 11:30 am Disposition: Home, Self-Care Prognosis: Serious Rehab Potential: Fair Medical - DS: Qual - VTE Deep Vein Thrombosis/Pulmonary Embolism Present on Admission: No
[2018-10-29] MEDS: oxyCODONE HCL 5 MG TABLET PO PRN ×3 (14:08→23:19)
[2018-10-29] MEDS: ACETAMINOPHEN 325 MG TABLET PO PRN ×2 (16:36→21:02)
[2018-10-30] MEDS: ACETAMINOPHEN 325 MG TABLET PO PRN ×2 (01:26→05:38)
[2018-10-30] MEDS: oxyCODONE HCL 5 MG TABLET PO PRN ×2 (03:23→07:34)
[2018-10-30] MEDS: 0.9 % SODIUM CHLORIDE 10 ML SYRINGE IV SCH ×2 (04:38→09:01)
[2018-10-30 06:26] LABS: ALT/SGPT 28 U/l (0-40); Albumin 3.1 gm/dL (3.2-5.2); Alkaline Phosphatase 125 U/L (39-117); Bilirubin,Direct < 0.2 mg/dL (0.0-0.3); Blood Urea Nitrogen 30 mg/dl (6-20); Gamma Glutamyl Transpeptidase 123 U/L (5-36); Uric Acid 5.1 mg/dL (2.5-8.0)
--- NOTE | 2018-10-30 06:49 | Internal Med Progress Note ---
Medical - PN: Subj Patient information: Note initiated : 10/30/18 at 6:48 am Service Date, if different from initiated Date: [] Patient: Leonor Thompson a 43 y/o F admitted on 10/24/18 for kidney problems. Chief Complaint: [] Interval history: Ms. Thompson is a 43 year old F with history of metastatic cervical cancer, presently not pursuing treatment presents to the emergency room for evaluation of abnormal labs. This is a pleasant 43-year-old female who was admitted to this facility a few months ago and was diagnosed with postobstructive renal failure. At that point in time stents were placed and the kidney function improved but was never normal. She has been followed by Dr. Branch and Dr. Clemens in the clinic. For the last few months the patient has reported that she has had no good appetite, she has been taking some milk and some clementines. Over the last 2- 3 days her condition worsened significantly and she felt weak fatigued and tired cold. She went to see urgent care physician at [facility] today and blood work showed worsening renal function and she was asked to come to the hospital for further management. The patient denies any headache changes in vision difficulty in swallowing, admits to some nausea and decreased appetite denies any cough chest pain shortness of breath but is fatigued on ambulation. She has abdominal pain that was also concerning in the left lower quadrant that started a few days ago which also contributed her going to the urgent care center today. The patient is incontinent to urine. The pain in the abdomen is worse with movement better with rest and some pain meds. She denies any blood in the stools denies any new joint pains or skin rashes. In the emergency room on presentation patient was afebrile temperature 97.8 heart rate 92 blood pressure 148 x 92 saturating 100% on room air. Labs show hemoglobin of 8.4 WBC 7.6 lactic acid 0.7 platelets 227. Sodium 133 potassium 6.4 bicarbonate 14 chloride 97 BUN 107 creatinine 9.6 glucose 80 Urine dip positive for nitrite and leukocyte esterase. ABG shows pH of 7.31 PCO2 628 PO2 90 on room air Patient had a renal ultrasound, KUB CT done. Nephrology and neurology have been consulted. EKG shows sinus tachycardia with low voltage chest x-ray shows no acute infiltrates. Patient is being admitted to the hospital for further management, patient wishes DNR status 10/25 Patient seen and examined, overnight had significant nausea and vomiting. She also had some diarrhea due to Kayexalate. Blood cultures positive aerobic and anaerobic bottle gram variable bacteria at this time IV vancomycin and IV ertapenum ordered. Pt has h/o allergy to penicillin, test dose of ertapenum 0.1ml ID given, in 20-30 mins, no itching, ho increased size of the wheal noted. I believe she should be able to tolerate this medication well d/c cipro Stents exchanged by Dr Branch. Renal function still abnormal, but potassium is better d/c bicarb drip. 10/26 Patient seen examined appetite returning blood cultures still has gram variable rods Plan to get CT with oral contrast to r/o any invasion of bowels by cervical cancer creat trending down, K stable pt still has diarrhea. 10/27 Slept well. Better appetite. CT abdomen pelvis with 8 x 3 cm cervical mass juxtaposed to the posterior wall of the bladder and to the wall of the rectum unable to determine if there is invasion into those tissues. Overall feeling better. Diarrhea improving. Had a discussion about her regarding her cervical cancer. She has had chemoradiation surgery in the past. Found to have recurrence but did not want any further treatment. She did have a PET scan in August which showed liver lesions. Again she does not want to pursue any treatment and understands that it is terminal without treatment. 10/28 Has occasional nausea. Has some emesis yesterday but none overnight or this morning. Slept well. No other new complaints. 1/1 Little bit of nausea this morning that is typical for her. No vomiting otherwise feeling well. 1/2 Feeling well, no issues overnight, no new complaints. Review of Systems: denies headache/fever/chills/nause/vomiting/chest or abdominal pain/cough/ dyspnea. Otherwise see above. - Constitutional Vitals: Vital Signs Temp Pulse Resp BP Pulse Ox 98.2 F 85 16 125/85 96 10/30/18 03:25 10/30/18 03:25 10/30/18 03:25 10/30/18 03:25 10/30/18 03:25 Period Temp Pulse Resp BP Sys/Harris Pulse Ox Last 24 Hr 98.2 F-99.0 F 85-97 15-16 122-136/83-90 93-98 Intake and Output 10/29/18 10/30/18 10/30/18 21:59 05:59 13:59 Intake Total 630 / 630 400 / 400 Output Total 475 / 475 400 / 400 Balance 155 / 155 0 / 0 Weight 76.204 kg Intake & Output: Intake & Output 10/29/18 10/30/18 10/30/18 21:59 05:59 13:59 Intake Total 630 / 630 400 / 400 Output Total 475 / 475 400 / 400 Balance 155 / 155 0 / 0 Weight 76.204 kg Intake: Oral 630 / 630 400 / 400 Output: Urine Catheter Amount 475 / 475 400 / 400 Other: Meal Dinner Percent of Meal Consumed 25% Feeding Ability Independent Urine Appearance Clear Clear Uretheral (Ellis) Clear Urine Color Dark Yellow Bright Yellow Uretheral (Ellis) Bright Yellow Urine Odor Normal Exam: General: Alert, Awake, No acute Distress Eyes/N/T: EOMI, Head/Neck: neck supple, CV: RRR, No murmurs, Pulm: Clear b/l, no wheezing/rhonchi/rales Abd: soft, nontender, +BS x4 Ext: no clubbing/cyanosis/edema Neuro: Alert, no focal deficits, moves all extremities, Skin: warm/dry Medical - PN: Obj Da - Labs CBC & Chem 7: 10/28/18 04:00 10/30/18 04:45 Labs: Abnormal Lab Results 10/30/18 10/29/18 10/28/18 04:45 03:45 04:00 RBC Hgb Hct Lymph # (Auto) BUN 30 H 35 H 44 H Creatinine 2.8 H 2.8 H 3.6 H Calcium 8.5 L Magnesium 1.4 L GGT 123 H 116 H 93 H Alkaline Phosphatase 125 H 126 H Albumin 3.1 L 3.1 L 3.1 L Triglycerides 205 H 165 H 164 H 10/28/18 04:00 RBC 2.82 L Hgb 8.4 L Hct 25.2 L Lymph # (Auto) 1.3 L BUN Creatinine Calcium Magnesium GGT Alkaline Phosphatase Albumin Triglycerides Meds: Medications Acetaminophen (Tylenol) 650 mg PO Q4-6HP PRN PRN Reason: PAIN/FEVER > 101 Last Admin: 10/30/18 05:38 Dose: 650 mg Docusate Sodium (Colace) 100 mg PO DAILYP PRN PRN Reason: Constipation Heparin Sodium (Porcine) (Heparin) 5,000 unit SQ Q12 [facility] Last Admin: 10/29/18 21:02 Dose: 5,000 unit Heparin Sodium (Porcine) (Heparin Flush) 5 ml IV Q12 [facility] Last Admin: 10/29/18 21:01 Dose: 5 ml Hydromorphone HCl (Dilaudid) 0.5 mg IV Q4HP PRN PRN Reason: PAIN LEVEL > 6 Ertapenem 0.5 gm/ Sodium (Chloride) 50 mls @ 100 mls/hr IV Q24H [facility] Naloxone HCl (Narcan) 0.1 mg IV Q2MIN PRN PRN Reason: Opiate Reversal Nystatin (Nystatin) 500,000 units SSW QID [facility] Last Admin: 10/29/18 21:02 Dose: 500,000 units Ondansetron HCl (Zofran) 4 mg IV Q4-6HP PRN PRN Reason: Nausea And Vomiting Oxycodone HCl (Roxicodone) 10 mg PO Q4HP PRN PRN Reason: Pain Last Admin: 10/30/18 03:23 Dose: 10 mg Pantoprazole Sodium (Protonix) 40 mg IV BIDAC [facility] Last Admin: 10/29/18 16:36 Dose: 40 mg Promethazine HCl (Phenergan) 12.5 mg IV Q4-6HP PRN PRN Reason: Nausea And Vomiting Sevelamer Carbonate (Renvela) 1,600 mg PO TIDCC [facility] Last Admin: 10/29/18 16:36 Dose: 1,600 mg Sodium Chloride (Saline Flush) 10 ml IV Q8 [facility] Last Admin: 10/30/18 04:38 Dose: 10 ml Sodium Chloride (Saline Flush) 10 ml IV Q12 [facility] Last Admin: 10/29/18 21:01 Dose: 10 ml Medical - PN: A/P - Time Spent With Patient Total time spent is greater than 50% in coordination of care (as documented) at patient's floor/unit and/or counseling patient: - Narrative A/P Narrative: A: *Acute on Chronic Renal failure: due to cervical cancer, stent blockage? -s/p stent exchange (10/25) by Dr Branch, pt has good urine output, -Continues to Improve *Metabolic Acidosis: NAGMA and HGAMA (due to renal failure): resolved *Urinary tract infection: UC no growth *Bactermia (Clostridium ramosum): source Enteric? -?is the cervical cancer invading bowel/bladder wall? -CT a/p shows large 8x3 cavitating mass juxtaposed to posterior wall of bladder & anterior wall of rectum, "no fat plane and, presumably, the mass has invaded both of these structures." *Sepsis: resolving *Cervical CA found in 2015, with recurrence: Has had surgery/chemo/radiation in the past and then found to have recurrence but does not want to pursue any treatment. Did have PET in august showing new liver lesions -Understands that this is terminal without treatment -Follows with Dr. Calderon in [place] for oncology *Anemia of chr disease: stable *Hyperkalemia: resolved P: -Nephrology following -Urology -Ertapenem while inpt and d/c on PO flagyl for total of 14 days (stop date 11/11) -ID consult - -ppx: hep sq DNR code status. d/c planning Medical - PN: Qual - VTE Deep Vein Thrombosis/Pulmonary Embolism Present on Admission: No
[2018-10-30] MEDS: SEVELAMER 800 MG TABLET PO SCH (07:33)
[2018-10-30] MEDS: PANTOPRAZOLE 40 MG VIAL IV SCH (07:33)
[2018-10-30] MEDS: HEPARIN 5,000 UNIT/ML VIAL SQ SCH (08:59)
[2018-10-30] MEDS: NYSTATIN 500,000 UNITS/5 ML ORAL.SUSP SSW SCH (09:00)
[2018-10-30] MEDS ORDERED: ERTAPENEM 0.5 GM in 0.9 % SODIUM CHLORIDE 50 ML IV SCH (09:00)
[2018-10-30] MEDS ORDERED: HEPARIN SODIUM,PORCINE/PF 500 UNIT/5 ML SYRINGE IV ONE (09:25)
--- NOTE | 2018-10-30 09:42 | Infectious Disease Prog Note ---
Subjective Patient information: Note initiated : 10/30/18 at 9:37 am Service Date, if different from initiated Date: [] Patient: Leonor Thompson 43 y/o F admitted on 10/24/18 for kidney problems. Chief Complaint: [] Principal diagnosis: acute renal failure Interval history: Pt feeling better. Denied any fever, chills, n/v, diarrhea. Her appetite is slightly better this am. Discussed with her the treatment plan about taking oral Metronidazole for another 12 days to finish a 2-week course total. Pt voiced understanding. She also mentioned that she would be meeting with her oncologist this week to discuss goals of care. Objective Objective Narrative: ao x 3, in nad no signs of inflammation at or around the right chest wall chemoport chestcta s1 s2 normal - Vital Signs Vital signs: Vital Signs Temp Pulse Resp BP BP Pulse Ox 10/30/18 08:00 35.8 C L 64 16 127/81 94 10/30/18 03:25 36.8 C 85 16 125/85 96 10/29/18 23:20 37.0 C 91 H 16 136/90 97 10/29/18 19:10 37.2 C 88 16 132/87 98 10/29/18 16:00 37.1 C 97 H 15 134/89 97 10/29/18 11:59 37.0 C 94 H 15 122/83 93 Intake and Output 10/29/18 10/30/18 10/30/18 21:59 05:59 13:59 Intake Total 630 / 630 400 / 400 Output Total 475 / 475 400 / 400 Balance 155 / 155 0 / 0 Intake: Oral 630 / 630 400 / 400 Output: Urine Catheter Amount 475 / 475 400 / 400 Other: Meal Dinner Percent of Meal Consumed 25% Feeding Ability Independent Urine Appearance Clear Clear Uretheral (Ellis) Clear Urine Color Dark Yellow Bright Yellow Uretheral (Ellis) Bright Yellow Urine Odor Normal Weight 76.204 kg Intake & Output: Intake & Output 10/29/18 10/30/18 10/30/18 21:59 05:59 13:59 Intake Total 630 / 630 400 / 400 Output Total 475 / 475 400 / 400 Balance 155 / 155 0 / 0 Weight 76.204 kg Intake: Oral 630 / 630 400 / 400 Output: Urine Catheter Amount 475 / 475 400 / 400 Other: Meal Dinner Percent of Meal Consumed 25% Feeding Ability Independent Urine Appearance Clear Clear Uretheral (Ellis) Clear Urine Color Dark Yellow Bright Yellow Uretheral (Ellis) Bright Yellow Urine Odor Normal - Lab 10/28/18 04:00 10/30/18 04:45 Most recent lab results Calcium 8.8 mg/dl (8.6-10.4) 10/30/18 04:45 Phosphorus 3.0 mg/dL (2.7-4.5) 10/30/18 04:45 Magnesium 1.8 mg/dL (1.6-2.5) 10/30/18 04:45 Microbiology 10/24/18 16:21 Blood Blood Culture - Final Clostridium ramosum 10/24/18 16:10 Blood Blood Culture - Final Clostridium ramosum 10/28/18 04:00 Blood Blood Culture - Preliminary 10/28/18 04:40 Blood Blood Culture - Preliminary 10/26/18 14:44 Stool C. difficile GDH Antigen & Toxins - Final 10/24/18 12:20 Urine - Clean Void Mid-Stream Urine Culture - Final 10/24/18 15:05 Nose MRSA (PCR) - Final Medications Active Medications: Acetaminophen (Tylenol) 650 mg PO Q4-6HP PRN PRN Reason: PAIN/FEVER > 101 Last Admin: 10/30/18 05:38 Dose: 650 mg Admin: 10/30/18 01:26 Dose: 650 mg Admin: 10/29/18 21:02 Dose: 650 mg Admin: 10/29/18 16:36 Dose: 650 mg Docusate Sodium (Colace) 100 mg PO DAILYP PRN PRN Reason: Constipation Heparin Sodium (Porcine) (Heparin) 5,000 unit SQ Q12 [facility] Last Admin: 10/30/18 08:59 Dose: Not Given Non-Admin Reason: Patient Refused Admin: 10/29/18 21:02 Dose: 5,000 unit Heparin Sodium (Porcine) (Heparin Flush) 5 ml IV Q12 [facility] Last Admin: 10/30/18 07:35 Dose: 5 ml Admin: 10/29/18 21:01 Dose: 5 ml Hydromorphone HCl (Dilaudid) 0.5 mg IV Q4HP PRN PRN Reason: PAIN LEVEL > 6 Ertapenem 0.5 gm/ Sodium (Chloride) 50 mls @ 100 mls/hr IV Q24H [facility] Last Admin: 10/30/18 09:00 Dose: Naloxone HCl (Narcan) 0.1 mg IV Q2MIN PRN PRN Reason: Opiate Reversal Nystatin (Nystatin) 500,000 units SSW QID [facility] Last Admin: 10/30/18 09:00 Dose: Not Given Non-Admin Reason: Patient Refused Admin: 10/29/18 21:02 Dose: 500,000 units Admin: 10/29/18 16:36 Dose: 500,000 units Admin: 10/29/18 12:03 Dose: 500,000 units Ondansetron HCl (Zofran) 4 mg IV Q4-6HP PRN PRN Reason: Nausea And Vomiting Oxycodone HCl (Roxicodone) 10 mg PO Q4HP PRN PRN Reason: Pain Last Admin: 10/30/18 07:34 Dose: 10 mg Admin: 10/30/18 03:23 Dose: 10 mg Admin: 10/29/18 23:19 Dose: 10 mg Admin: 10/29/18 18:08 Dose: 10 mg Admin: 10/29/18 14:08 Dose: 10 mg Pantoprazole Sodium (Protonix) 40 mg IV BIDAC [facility] Last Admin: 10/30/18 07:33 Dose: 40 mg Admin: 10/29/18 16:36 Dose: 40 mg Promethazine HCl (Phenergan) 12.5 mg IV Q4-6HP PRN PRN Reason: Nausea And Vomiting Sevelamer Carbonate (Renvela) 1,600 mg PO TIDCC [facility] Last Admin: 10/30/18 07:33 Dose: 1,600 mg Admin: 10/29/18 16:36 Dose: 1,600 mg Admin: 10/29/18 12:02 Dose: 1,600 mg Sodium Chloride (Saline Flush) 10 ml IV Q8 [facility] Last Admin: 10/30/18 04:38 Dose: 10 ml Admin: 10/29/18 21:01 Dose: 10 ml Admin: 10/29/18 14:07 Dose: 10 ml Sodium Chloride (Saline Flush) 10 ml IV Q12 [facility] Last Admin: 10/30/18 09:01 Dose: 10 ml Admin: 10/29/18 21:01 Dose: 10 ml Assessment and Plan - Narrative A/P Narrative: A: 1. Clostridium ramosum bacteremia: blood Cx neg since 10/28 - likely source is invasion of local GI tract by metastatic cervical cancer - pt understands why it happened and that such bacteremia might happen again as the cancer is invading the rectum (thus predisposing to bacterial translocation into bloodstream) - no sensitivity studies done, but based on literature review C ramosum is universally susceptible to Metronidazole 2. Metastatic cervical Ca 3. Hx of severe penicillin allergy when 6 years old: pt had facial and throat swelling Recommendations: - Stop IV Ertapenem - Start 500 mg PO Metronidazole q8 hrs today am to complete a total of 14 days of therapy (stop date of 11/11/18) - Per discussion with patient and her , no plans for pre-emptive prophylaxis for preventing bacteremia due to enteric bacteria in future No ID f/u indicated at this point Cale Barber MD Infectious diseases
== END 2018-10-30 10:25 | disposition home or self-care (01) | DRG 854 ==
LOC: ED 10:55 → ICU 14:48 → MEDSUR 10-29 11:49
PROVIDERS: ADMIT Internal Medicine; ATTEND Internal Medicine